=== PATIENT | male | born 1975 | race African-American/Black ===

== ENCOUNTER 2017-08-29 11:03 | Inpatient (IN) | payer OTHER ==
[2017-08-29 12:10] VITALS: BMI 31.4
--- NOTE | 2017-08-29 13:47 | HP ---
CIWA Score - CIWA Score Nausea/Vomitin Muscle Tremors: 3 Anxiety: 3 Agitation: 3 Paroxysmal Sweats: 3 Orientation: 0-Oriented Tacttile Disturbances: 0-None Auditory Disturbances: 0-None Visual Disturbances: 0-None Headache: 0-None Present CIWA-Ar Total Score: 14 Admission ROS BHS - HPI Chief Complaint: "I guess I still need help". Requesting alcohol detox Allergies/Adverse Reactions: Allergies Allergy/AdvReac Type Severity Reaction Status Date / Time No Known Allergies Allergy Verified 08/29/17 12:33 History of Present Illness: Pt is a 42 year old male with a long history of alcohol intoxication here for detox. Pt is previously known to [facility]. With a 5 years hx of sobriety, completed 6 months rehab on 08/16 and relapsed 4 days ago because he got money and hung out with the "wrong crowd". Hx of DM2, HTN, High cholesterol, COPD, Hep C. Pt denies current suicidal ideation. Exam Limitations: No Limitations - Ebola screening Have you traveled outside of the country in the last 21 days: No (N) Have you had contact with anyone from an Ebola affected area: No Have you been sick,other than usual withdrawal symptoms: No Do you have a fever: No - Review of Systems Constitutional: No Symptoms Reported EENT: reports: Blurred Vision (astigmatism), Nose Congestion Respiratory: reports: SOB with Exertion (No resp distress) Cardiac: reports: No Symptoms Reported GI: reports: Constipated (last BM yesterday) : reports: No Symptoms Reported Musculoskeletal: reports: No Symptoms Reported Integumentary: reports: Sweating Endocrine: reports: No Symptoms Reported Hematology: reports: No Symptoms Reported Psychiatric: reports: No Sypmtoms Reported, Judgement Intact, Mood/Affect Appropiate, Orientated x3 Other Systems: Reviewed and Negative Patient History - Patient Medical History Hx Anemia: No Hx Asthma: No Hx Chronic Obstructive Pulmonary Disease (COPD): Yes (Advair, Albuterol) Hx Cancer: No Hx Cardiac Disorders: No Hx Congestive Heart Failure: No Hx Hypertension: Yes (Amlodipine 10mg, Norvasc 10mg) Hx Hypercholesterolemia: Yes (LIPITOR 40 MG HS) Hx Pacemaker: No HX Cerebrovascular Accident: No Hx Seizures: No Hx Dementia: No Hx Diabetes: Yes (Metformin, ) Hx Gastrointestinal Disorders: No Hx Liver Disease: No Hx Genitourinary Disorders: No Hx Sexually Transmitted Disorders: No Hx Renal Disease (ESRD): No Hx Thyroid Disease: No Hx Human Immunodeficiency Virus (HIV): No (NEGATIVE) Hx Hepatitis C: Yes (NO [place] YET) Hx Depression: Yes (Depakote, Remeron, Trazodone) Hx Suicide Attempt: Yes ( cut self in 2009, 2013. Denies current suicidal idea/ attempt) Hx Bipolar Disorder: Yes Hx Schizophrenia: No - Patient Surgical History Past Surgical History: Yes Hx Neurologic Surgery: No Hx Cataract Extraction: No Hx Cardiac Surgery: No Hx Lung Surgery: No Hx Breast Surgery: No Hx Breast Biopsy: No Hx Abdominal Surgery: No Hx Appendectomy: No Hx Cholecystectomy: No Hx Genitourinary Surgery: No Hx Section: No Hx Orthopedic Surgery: Yes (FIFTH TOE SX IN 11/2015) Anesthesia Reaction: No - PPD History Previous Implant?: Yes Documented Results: Negative w/proof Date: 03/19/16 Results: TO BE DONE PPD to be Administered?: Yes - Reproductive History Patient is a Female of Child Bearing Age (11 -55 yrs old): No - Smoking Cessation Smoking history: Current every day smoker Have you smoked in the past 12 months: Yes Aproximately how many cigarettes per day: 10 Cigars Per Day: 0 Hx Chewing Tobacco Use: No Initiated information on smoking cessation: Yes 'Breaking Loose' booklet given: 08/29/17 - Substances Abused Alcohol Route: Oral Frequency: Daily Amount used: liquor- 5 pints, beer 8 (40oz) Age of first use: 10 Date of Last Use: 08/28/17 Cocaine Route: Smoking Frequency: Daily Amount used: 4 bags Age of first use: 15 Date of Last Use: 08/28/17 Family Disease History - Family Disease History Family Disease History: Other: Father (), Mother (), Daughter ( none) Admission Physical Exam BHS - Vital Signs Vital Signs: Vital Signs - 24 hr 08/29/17 12:07 Temperature 96.6 F L Pulse Rate 87 Respiratory 20 Rate Blood Pressure 151/89 - Physical General Appearance: Yes: Mild Distress, Anxious HEENTM: Yes: Within Normal Limits Respiratory: Yes: No Respiratory Distress, No Accessory Muscle Use Neck: Yes: No masses,lesions,Nodules Breast: Yes: Breast Exam Deferred Cardiology: Yes: Regular Rate, S1, S2 Abdominal: Yes: Normal Bowel Sounds, Distended Genitourinary: Yes: Within Normal Limits Back: Yes: Within Normal Limits Musculoskeletal: Yes: full range of Motion, Gait Steady Extremities: Yes: Within Normal Limits, Normal Capillary Refill Neurological: Yes: Fully Oriented, Alert, Motor Strength 5/5, Normal Mood/Affect Integumentary: Yes: Normal Color, Warm Lymphatic: Yes: Within Normal Limits - Diagnostic (1) Alcohol dependence with uncomplicated withdrawal Current Visit: No Status: Acute (2) Nicotine dependence Current Visit: No Status: Chronic Qualifiers: Nicotine product type: cigarettes Substance use status: uncomplicated Qualified Code(s): F17.210 - Nicotine dependence, cigarettes, uncomplicated (3) Cocaine dependence, uncomplicated Current Visit: No Status: Chronic (4) Diabetes mellitus Current Visit: No Status: Chronic Qualifiers: Diabetes mellitus type: type 2 Diabetes mellitus intermediate frame tender insulin use: without fpc use Diabetes mellitus complication status: without complication Qualified Code(s): E11.9 - Type 2 diabetes mellitus without complications (5) Hepatitis C Current Visit: No Status: Chronic Qualifiers: Viral hepatitis chronicity: chronic Hepatic coma status: without hepatic coma Qualified Code(s): B18.2 - Chronic viral hepatitis C (6) Hypercholesterolemia Current Visit: No Status: Chronic (7) Hypertension Current Visit: No Status: Chronic Qualifiers: Hypertension type: essential hypertension Qualified Code(s): I10 - Essential (primary) hypertension (8) Depression Current Visit: Yes Status: Acute (9) Bipolar disorder Current Visit: No Status: Suspected Qualifiers: Active/Remission status: in full remission Most recent bipolar episode type : mixed Qualified Code(s): F31.78 - Bipolar disorder, in full remission, most recent episode mixed (10) Asthma Current Visit: No Status: Chronic Qualifiers: Asthma severity: mild persistent Asthma complication type: with status asthmaticus Qualified Code(s): J45.32 - Mild persistent asthma with status asthmaticus BHS Breath Alcohol Content Breath Alcohol Content: 0 Urine Drug Screen - Results Drug Screen Negative: No Urine Drug Screen Results: ALLIE-Cocaine, BAR-Barbiturates
[2017-08-29] MEDS ORDERED: P-EPHED 60MG/TRIPROLIDI 2.5MG TABLET PO PRN (14:17)
[2017-08-29] MEDS ORDERED: NICOTINE POLACRILEX 2 MG GUM BUC PRN (14:17)
[2017-08-29] MEDS ORDERED: guaiFENesin/D-METHORPHAN HB 10 ML UNIT-DOSE CUPS PO PRN (14:17)
[2017-08-29] MEDS ORDERED: ACETAMINOPHEN 325 MG TABLET (FP) PO PRN (14:17)
[2017-08-29] MEDS ORDERED: LOPERAMIDE HCL 2 MG CAPSULE PO PRN (14:17)
[2017-08-29] MEDS ORDERED: MAG HYDROX/AL HYDROX/SIMETH 30 ML UNIT-DOSE CUP PO PRN (14:17)
[2017-08-29] MEDS ORDERED: chlordiazePOXIDE HCL 25 MG CAPSULE PO PRN (14:17)
[2017-08-29] MEDS ORDERED: MAGNESIUM CITRATE 300 ML BOTTLE PO PRN (14:17)
[2017-08-29] MEDS ORDERED: IBUPROFEN 400 MG TABLET (FP) PO PRN (14:17)
[2017-08-29] MEDS ORDERED: MAGNESIUM HYDROX 2400MG/30ML ORAL SUSPENSION 30 ML CUP PO PRN (14:17)
[2017-08-29] MEDS ORDERED: MENTHOL/PHENOL 1 EACH UD MM PRN (14:17)
[2017-08-29] MEDS ORDERED: chlordiazePOXIDE HCL 25 MG CAPSULE ONE (15:28)
[2017-08-29] MEDS ORDERED: ALBUTEROL SO4 18 GM HFA INHALER IH PRN (16:45)
[2017-08-29 17:31] LABS: URINE APPEARANCE TURBID; URINE BILIRUBIN NEGATIVE (NEGATIVE); URINE BLOOD NEGATIVE (NEGATIVE); URINE COLOR AMBER; URINE GLUCOSE (UA) 1+ (NEGATIVE); URINE KETONE NEGATIVE (NEGATIVE); URINE LEUK ESTERASE NEGATIVE (NEGATIVE); URINE NITRITE NEGATIVE (NEGATIVE); URINE PROTEIN NEGATIVE (NEGATIVE); URINE UROBILINOGEN 4.0 E.U/dl mg/dL (0.2-1.0)
[2017-08-29] MEDS: chlordiazePOXIDE HCL 25 MG CAPSULE PO SCH ×2 (17:40→22:15)
[2017-08-29] MEDS: ASPIRIN 81 MG CHEWABLE TABLETS PO SCH (17:41)
[2017-08-29] MEDS: LOSARTAN POTASSIUM 50 MG TABLET (FP) PO SCH (17:41)
[2017-08-29] MEDS: ATORVASTATIN CA 10 MG TABLET (FP) PO SCH (22:15)
[2017-08-29] MEDS: THIAMINE HCL 100 MG TABLET (FP) PO SCH (22:15)
[2017-08-29] MEDS: ATORVASTATIN CA 20 MG TABLET (FP) PO SCH (22:15)
[2017-08-29] MEDS: BUDESONIDE/FORMETEROL FUMARATE 80/4.5 mcg INHALER IH SCH (22:16)
[2017-08-30] MEDS: chlordiazePOXIDE HCL 25 MG CAPSULE PO SCH ×4 (06:18→22:20)
[2017-08-30 10:14] LABS: HEMATOCRIT 41.9 % (35.4-49); HEMOGLOBIN 14.5 GM/dL (11.7-16.9); MCH 27.2 pg (25.7-33.7); MCHC 34.7 g/dl (32.0-35.9); MEAN CELL VOLUME 78.5 fl (80-96); MEAN PLT VOLUME 9.7 fl (7.5-11.1); PLATELET COUNT 167 K/MM3 (134-434); RBC 5.34 M/mm3 (4.00-5.60); RDW 14.4 % (11.9-15.9); WHITE BLOOD COUNT 6.7 K/mm3 (4.0-10.0)
[2017-08-30 10:16] LABS: CHLORIDE 109 mmol/L (98-107); POTASSIUM 4.4 mmol/L (3.5-5.1); SODIUM 140 mmol/L (136-145)
[2017-08-30] MEDS: PRENATAL VITAMINS W/ FOLIC ACID TABLET (FP) PO SCH (10:21)
[2017-08-30] MEDS: LOSARTAN POTASSIUM 50 MG TABLET (FP) PO SCH (10:21)
[2017-08-30] MEDS: ASPIRIN 81 MG CHEWABLE TABLETS PO SCH (10:21)
[2017-08-30] MEDS: NICOTINE 14 MG/24 HOURS TOPICAL PATCH TD SCH (10:22)
[2017-08-30] MEDS: BUDESONIDE/FORMETEROL FUMARATE 80/4.5 mcg INHALER IH SCH ×2 (10:22→22:22)
--- NOTE | 2017-08-30 10:23 | PN ---
S CIWA - CIWA Score Nausea/Vomitin-Mild Nausea/No Vomiting Muscle Tremors: 2 Anxiety: 2 Agitation: 2 Paroxysmal Sweats: 2 Orientation: 0-Oriented Tacttile Disturbances: 3-Moderate Itch/Numb/Burn Auditory Disturbances: 0-None Visual Disturbances: 0-None Headache: 1-Very Mild CIWA-Ar Total Score: 13 BHS Progress Note (SOAP) Subjective: "I have real bad diarrhea." Patient denies tremors, c/o anxiety. Objective: 08/30/17 10:21 Last Vital Signs Temp Pulse Resp BP Pulse Ox 97.3 F L 95 H 20 161/98 08/30/17 09:57 08/30/17 09:57 08/30/17 09:57 08/30/17 09:57 Laboratory Last Values WBC 6.7 K/mm3 (4.0-10.0) 08/30/17 07:00 RBC 5.34 M/mm3 (4.00-5.60) 08/30/17 07:00 Hgb 14.5 GM/dL (11.7-16.9) 08/30/17 07:00 Hct 41.9 % (35.4-49) 08/30/17 07:00 MCV 78.5 fl (80-96) L 08/30/17 07:00 MCH 27.2 pg (25.7-33.7) 08/30/17 07:00 MCHC 34.7 g/dl (32.0-35.9) 08/30/17 07:00 RDW 14.4 % (11.9-15.9) 08/30/17 07:00 Plt Count 167 K/MM3 (134-434) 08/30/17 07:00 MPV 9.7 fl (7.5-11.1) 08/30/17 07:00 POC Glucometer 186 UNITS (80-120) 08/30/17 06:16 Urine Color Lou 08/29/17 15:23 Urine Appearance Turbid 08/29/17 15:23 Urine pH 5.0 (5.0-8.0) 08/29/17 15:23 Ur Specific [place] 1.028 (1.001-1.035) 08/29/17 15:23 Urine Protein Negative (NEGATIVE) 08/29/17 15:23 Urine Glucose (UA) 1+ (NEGATIVE) H 08/29/17 15:23 Urine Ketones Negative (NEGATIVE) 08/29/17 15:23 Urine Blood Negative (NEGATIVE) 08/29/17 15:23 Urine Nitrite Negative (NEGATIVE) 08/29/17 15:23 Urine Bilirubin Negative (NEGATIVE) 08/29/17 15:23 Urine Urobilinogen 4.0 e.u/dl mg/dL (0.2-1.0) 08/29/17 15:23 Ur Leukocyte Esterase Negative (NEGATIVE) 08/29/17 15:23 Labs pending A and O x 3 Mild tremor, anxious Lungs CTA bilaterally Heart S1, S2, rrr Assessment: withdrawal syndrome 08/30/17 10:22 Plan: Continue detox
[2017-08-30 10:25] LABS: ALBUMIN 3.4 g/dl (3.4-5.0); ALK PHOS 89 U/L (45-117); ANION GAP 8 (8-16); BILIRUBIN,TOTAL 0.5 mg/dL (0.2-1.0); BLOOD UREA NITROGEN 18 mg/dL (7-18); CALCIUM 7.9 mg/dL (8.5-10.1); CO2 23 mmol/L (21-32); CREATININE 0.8 mg/dL (0.7-1.3); GLUCOSE,RANDOM 170 mg/dL (74-106); SGOT/AST 7 U/L (15-37); SGPT/ALT 16 U/L (12-78); TOT PROT 6.5 g/dl (6.4-8.2)
--- NOTE | 2017-08-30 13:19 | CONSULT ---
[facility] Psychiatric Consult - Data Date of interview: 08/30/17 Admission source: [facility] Identifying data: Readmission to [facility] for this 42 y/o AA male seeking detox treatment,on ,for cocaine (crack) and alcohol dependence.Patient is single,a father offour,homeless,unemployed and supported on Public Assistance. Substance Abuse History: Discussed in this interview.Mr Adams does admit to daily use of crack + consuming 3-5 pints of liquor and beer on a daily basis.Aknowledges 25-30 years of substance dependence. See details in current [facility] report (endorsesd by patient as accurate) : Smoking history: Current every day smoker. Have you smoked in the past 12 months: Yes. Aproximately how many cigarettes per day: 10. Cigars Per Day: 0. Hx Chewing Tobacco Use: No. Initiated information on smoking cessation: Yes. 'Breaking Loose' booklet given : 08/29/17. - Substances Abused. Alcohol. Route: Oral. Frequency: Daily. Amount used: liquor- 5 pints, beer 8 (40oz). Age of first use: 10. Date of Last Use: 08/28/17. Cocaine. Route: Smoking. Frequency: Daily. Amount used: 4 bags. Age of first use: 15. Date of Last Use: 08/28/17 Medical History: Multiple medical co-morbidities : hypertension,diabetes mellitus,hypercholesterolemia,hepatitis C,COPD and a remote history of orthosurgery (foot). Psychiatric History: Extensive history of psychiatric illness (onset of psychiatric issues : age [age]).Diagnoised with Bipolar Disorder.Patient admits to a history of multiple psychiatric hospitalizations ([facility] in [place],[facility] in [facility] in [facility] and other unnamed institutions).Mr Adams is currently receiving outpatient psychiatric services at the [facility] in the [place].Maintenance medications are reported by patient to be depakote 500 mg po bid + trazodone 200 mg/hs + remeron 30 mg/hs.Good adherence is self-reported.Patient mentions two previous suicide attempts (via wrist- cutting) in 2009 + 2013. Physical/Sexual Abuse/Trauma History: Patient denies. Additional Comment: Urine Drug Screen Results: ALLIE-Cocaine, BAR- Barbiturates.Noted. Mental Status Exam - Mental Status Exam Alert and Oriented to: Time, Place, Person Cognitive Function: Good Patient Appearance: Well Groomed Mood: Nervous, Withdrawn Affect: Appropriate, Normal Range Patient Behavior: Fatigued, Appropriate, Cooperative Speech Pattern: Clear, Appropriate Voice Loudness: Normal Thought Process: Goal Oriented Thought Disorder: Not Present Hallucinations: Denies Suicidal Ideation: Denies Homicidal Ideation: Denies Insight/Judgement: Poor Sleep: Poorly, Difficulty falling asleep Appetite: Good Muscle strength/Tone: Normal Gait/Station: Normal Psychiatric Findings - Problem List ([place] 1, 2,3) (1) Alcohol dependence with uncomplicated withdrawal Current Visit: Yes Status: Acute (2) Cocaine dependence, uncomplicated Current Visit: Yes Status: Acute (3) Nicotine dependence Current Visit: Yes Status: Acute Qualifiers: Nicotine product type: cigarettes Substance use status: uncomplicated Qualified Code(s): F17.210 - Nicotine dependence, cigarettes, uncomplicated (4) Bipolar disorder Current Visit: Yes Status: Chronic Qualifiers: Active/Remission status: in full remission Most recent bipolar episode type : mixed Qualified Code(s): F31.78 - Bipolar disorder, in full remission, most recent episode mixed Comment: As per records and self-report.Patient is in active psychiatric OPD care.On medications. (5) Insomnia Current Visit: Yes Status: Acute - Initial Treatment Plan Initial Treatment Plan: Records revisited.Sleep hygiene.Psychoeducation and support.Detoxification in progress.Medications reconciled : depakote 500 mg po bid + trazodone 100 mg po hs + remeron 15 mg po hs.Side effects/benefits of each drug are discussed with the patient.Mr Adams is made aware, in particular, of the risk of liver dysfunction,blood dyscrasias,weight gain,hair loss, priapism and oversedation.He endorses this regimen as effective and well tolerated over years of treatment.Patient gave his consent (verbally) to this functional tester typewriters for the implementation of this careplan.Request made for valproic acid level.Will follow.Observation.
--- NOTE | 2017-08-30 16:08 | EKG ---
Test Reason : Blood Pressure : / mmHG Vent. Rate : 088 BPM Atrial Rate : 088 BPM P-R Int : 150 ms QRS Dur : 090 ms QT Int : 356 ms P-R-T Axes : 028 067 045 degrees QTc Int : 430 ms NORMAL SINUS RHYTHM MINIMAL VOLTAGE CRITERIA FOR LVH, MAY BE NORMAL VARIANT BORDERLINE ECG NO PREVIOUS ECGS AVAILABLE Confirmed by OTILIO PABLO MD ([id number]) on 08/30/2017 4:07:34 PM Referred By: Confirmed By:OTILIO PABLO MD
[2017-08-30] MEDS: ATORVASTATIN CA 10 MG TABLET (FP) PO SCH (22:20)
[2017-08-30] MEDS: MIRTAZAPINE 15 MG TABLET (FP) PO SCH (22:20)
[2017-08-30] MEDS: traZODone HCL 100 MG TABLET (FP) PO SCH (22:20)
[2017-08-30] MEDS: THIAMINE HCL 100 MG TABLET (FP) PO SCH (22:20)
[2017-08-30] MEDS: DIVALPROEX SODIUM 500 MG TABLET E.C. PO SCH (22:20)
[2017-08-30] MEDS: ATORVASTATIN CA 20 MG TABLET (FP) PO SCH (22:20)
[2017-08-31] MEDS: chlordiazePOXIDE HCL 25 MG CAPSULE PO SCH ×2 (05:25→10:42)
[2017-08-31] MEDS: BUDESONIDE/FORMETEROL FUMARATE 80/4.5 mcg INHALER IH SCH ×2 (10:40→22:01)
[2017-08-31] MEDS: ASPIRIN 81 MG CHEWABLE TABLETS PO SCH (10:41)
[2017-08-31] MEDS: DIVALPROEX SODIUM 500 MG TABLET E.C. PO SCH ×2 (10:41→22:02)
[2017-08-31] MEDS: NICOTINE 14 MG/24 HOURS TOPICAL PATCH TD SCH (10:42)
[2017-08-31] MEDS: LOSARTAN POTASSIUM 50 MG TABLET (FP) PO SCH (10:42)
[2017-08-31] MEDS: PRENATAL VITAMINS W/ FOLIC ACID TABLET (FP) PO SCH (10:42)
--- NOTE | 2017-08-31 12:37 | PN ---
[facility] CIWA - CIWA Score Nausea/Vomitin-No Nausea/No Vomiting Muscle Tremors: 2 Anxiety: 4-Mod. Anxious/Guarded Agitation: 3 Paroxysmal Sweats: No Perspiration Orientation: 0-Oriented Tacttile Disturbances: 2-Mild Itch/Numbness/Burn Auditory Disturbances: 3-Moderate Harsh/Frighten Visual Disturbances: 0-None Headache: 0-None Present CIWA-Ar Total Score: 14 S Progress Note (SOAP) Subjective: Diarrhea, Anxious, Interrupted Sleep. Objective: PATIENT A & O X 3, OBSERVED AMBULATING ON UNIT. NO ACUTE DISTRESS. 08/31/17 12:36 Vital Signs Temperature 97.4 F L 08/31/17 09:47 Pulse Rate 90 08/31/17 09:47 Respiratory Rate 20 08/31/17 09:47 Blood Pressure 136/78 08/31/17 09:47 O2 Sat by Pulse Oximetry (%) Laboratory Tests 08/29/17 08/29/17 08/30/17 12:47 15:23 06:16 WBC RBC Hgb Hct MCV MCH MCHC RDW Plt Count MPV Sodium Potassium Chloride Carbon Dioxide Anion Gap BUN Creatinine Creat Clearance w eGFR POC Glucometer 179 186 Random Glucose Calcium Total Bilirubin AST ALT Alkaline Phosphatase Total Protein Albumin Urine Color Lou Urine Appearance Turbid Urine pH 5.0 Ur Specific [place] 1.028 Urine Protein Negative Urine Glucose (UA) 1+ H Urine Ketones Negative Urine Blood Negative Urine Nitrite Negative Urine Bilirubin Negative Urine Urobilinogen 4.0 e.u/dl Ur Leukocyte Esterase Negative Valproic Acid RPR Titer 08/30/17 08/30/17 08/30/17 07:00 07:00 07:00 WBC 6.7 RBC 5.34 Hgb 14.5 Hct 41.9 MCV 78.5 L MCH 27.2 MCHC 34.7 RDW 14.4 Plt Count 167 MPV 9.7 Sodium 140 Potassium 4.4 Chloride 109 H Carbon Dioxide 23 Anion Gap 8 BUN 18 D Creatinine 0.8 Creat Clearance w eGFR > 60 POC Glucometer Random Glucose 170 H D Calcium 7.9 L Total Bilirubin 0.5 D AST 7 L D ALT 16 D Alkaline Phosphatase 89 D Total Protein 6.5 Albumin 3.4 Urine Color Urine Appearance Urine pH Ur Specific [place] Urine Protein Urine Glucose (UA) Urine Ketones Urine Blood Urine Nitrite Urine Bilirubin Urine Urobilinogen Ur Leukocyte Esterase Valproic Acid RPR Titer Nonreactive 08/30/17 08/31/17 08/31/17 16:30 05:25 07:00 WBC RBC Hgb Hct MCV MCH MCHC RDW Plt Count MPV Sodium Potassium Chloride Carbon Dioxide Anion Gap BUN Creatinine Creat Clearance w eGFR POC Glucometer 283 199 Random Glucose Calcium Total Bilirubin AST ALT Alkaline Phosphatase Total Protein Albumin Urine Color Urine Appearance Urine pH Ur Specific [place] Urine Protein Urine Glucose (UA) Urine Ketones Urine Blood Urine Nitrite Urine Bilirubin Urine Urobilinogen Ur Leukocyte Esterase Valproic Acid 30.409 L RPR Titer LABS NOTED. Assessment: 08/31/17 12:36 WITHDRAWAL SYMPTOMS. Plan: CONTINUE DETOX. PRN IMMODIUM FOR DIARRHEA. INCREASE DAILY PO FLUID INTAKE.
[2017-08-31] MEDS: chlordiazePOXIDE 5 MG CAPSULE PO SCH ×2 (17:54→22:02)
[2017-08-31] MEDS: INSULIN DETEMIR 100 UNITS/ML MDV SQ SCH (22:00)
[2017-08-31] MEDS: THIAMINE HCL 100 MG TABLET (FP) PO SCH (22:02)
[2017-08-31] MEDS: MIRTAZAPINE 15 MG TABLET (FP) PO SCH (22:02)
[2017-08-31] MEDS: ATORVASTATIN CA 20 MG TABLET (FP) PO SCH (22:02)
[2017-08-31] MEDS: traZODone HCL 100 MG TABLET (FP) PO SCH (22:03)
[2017-09-01] MEDS: chlordiazePOXIDE 5 MG CAPSULE PO SCH ×2 (05:58→10:17)
[2017-09-01] MEDS: metFORMIN HCL 500 MG TABLET (FP) PO SCH ×2 (06:01→17:30)
[2017-09-01] MEDS ORDERED: INSULIN SLIDING SCALE (NOVOLOG) 1 VIAL SQ SCH (07:00)
[2017-09-01] MEDS ORDERED: INSULIN (NOVOLOG) ASPART 100 UNITS/ML 10ML VIAL ONE ×3 (07:46→17:30)
[2017-09-01] MEDS: BUDESONIDE/FORMETEROL FUMARATE 80/4.5 mcg INHALER IH SCH ×2 (10:16→23:00)
[2017-09-01] MEDS: NICOTINE 14 MG/24 HOURS TOPICAL PATCH TD SCH (10:17)
[2017-09-01] MEDS: PRENATAL VITAMINS W/ FOLIC ACID TABLET (FP) PO SCH (10:17)
[2017-09-01] MEDS: ASPIRIN 81 MG CHEWABLE TABLETS PO SCH (10:17)
[2017-09-01] MEDS: LOSARTAN POTASSIUM 50 MG TABLET (FP) PO SCH (10:17)
[2017-09-01] MEDS: DIVALPROEX SODIUM 500 MG TABLET E.C. PO SCH ×2 (10:17→23:01)
--- NOTE | 2017-09-01 10:24 | PN ---
BHS Progress Note (SOAP) Subjective: sweats , shakes , polyuria Objective: 09/01/17 10:22 Vital Signs Temperature 98.2 F 09/01/17 09:53 Pulse Rate 96 H 09/01/17 09:53 Respiratory Rate 20 09/01/17 09:53 Blood Pressure 149/77 09/01/17 09:53 O2 Sat by Pulse Oximetry (%) Laboratory Tests 08/29/17 08/29/17 08/30/17 12:47 15:23 06:16 WBC RBC Hgb Hct MCV MCH MCHC RDW Plt Count MPV Sodium Potassium Chloride Carbon Dioxide Anion Gap BUN Creatinine Creat Clearance w eGFR POC Glucometer 179 186 Random Glucose Calcium Total Bilirubin AST ALT Alkaline Phosphatase Total Protein Albumin Urine Color Lou Urine Appearance Turbid Urine pH 5.0 Ur Specific [place] 1.028 Urine Protein Negative Urine Glucose (UA) 1+ H Urine Ketones Negative Urine Blood Negative Urine Nitrite Negative Urine Bilirubin Negative Urine Urobilinogen 4.0 e.u/dl Ur Leukocyte Esterase Negative Valproic Acid RPR Titer 08/30/17 08/30/17 08/30/17 07:00 07:00 07:00 WBC 6.7 RBC 5.34 Hgb 14.5 Hct 41.9 MCV 78.5 L MCH 27.2 MCHC 34.7 RDW 14.4 Plt Count 167 MPV 9.7 Sodium 140 Potassium 4.4 Chloride 109 H Carbon Dioxide 23 Anion Gap 8 BUN 18 D Creatinine 0.8 Creat Clearance w eGFR > 60 POC Glucometer Random Glucose 170 H D Calcium 7.9 L Total Bilirubin 0.5 D AST 7 L D ALT 16 D Alkaline Phosphatase 89 D Total Protein 6.5 Albumin 3.4 Urine Color Urine Appearance Urine pH Ur Specific [place] Urine Protein Urine Glucose (UA) Urine Ketones Urine Blood Urine Nitrite Urine Bilirubin Urine Urobilinogen Ur Leukocyte Esterase Valproic Acid RPR Titer Nonreactive 08/30/17 08/31/17 08/31/17 16:30 05:25 07:00 WBC RBC Hgb Hct MCV MCH MCHC RDW Plt Count MPV Sodium Potassium Chloride Carbon Dioxide Anion Gap BUN Creatinine Creat Clearance w eGFR POC Glucometer 283 199 Random Glucose Calcium Total Bilirubin AST ALT Alkaline Phosphatase Total Protein Albumin Urine Color Urine Appearance Urine pH Ur Specific [place] Urine Protein Urine Glucose (UA) Urine Ketones Urine Blood Urine Nitrite Urine Bilirubin Urine Urobilinogen Ur Leukocyte Esterase Valproic Acid 30.409 L RPR Titer 08/31/17 09/01/17 21:57 05:59 WBC RBC Hgb Hct MCV MCH MCHC RDW Plt Count MPV Sodium Potassium Chloride Carbon Dioxide Anion Gap BUN Creatinine Creat Clearance w eGFR POC Glucometer 404 330 Random Glucose Calcium Total Bilirubin AST ALT Alkaline Phosphatase Total Protein Albumin Urine Color Urine Appearance Urine pH Ur Specific [place] Urine Protein Urine Glucose (UA) Urine Ketones Urine Blood Urine Nitrite Urine Bilirubin Urine Urobilinogen Ur Leukocyte Esterase Valproic Acid RPR Titer pt aox3 lying in bed in nad Assessment: 09/01/17 10:22 withdrawal sx's dm Plan: cont. detox increase fluids bgm monitoring tid
[2017-09-01] MEDS: INSULIN SLIDING SCALE (NOVOLOG) 1 VIAL SQ SCH ×2 (11:45→18:25)
[2017-09-01] MEDS: chlordiazePOXIDE HCL 10 MG CAPSULE PO SCH ×2 (18:24→23:00)
[2017-09-01] MEDS: INSULIN DETEMIR 100 UNITS/ML MDV SQ SCH (22:10)
[2017-09-01] MEDS: THIAMINE HCL 100 MG TABLET (FP) PO SCH (23:00)
[2017-09-01] MEDS: traZODone HCL 100 MG TABLET (FP) PO SCH (23:00)
[2017-09-01] MEDS: ATORVASTATIN CA 20 MG TABLET (FP) PO SCH (23:00)
[2017-09-01] MEDS: MIRTAZAPINE 15 MG TABLET (FP) PO SCH (23:01)
[2017-09-02] MEDS: chlordiazePOXIDE HCL 10 MG CAPSULE PO SCH ×2 (05:27→11:18)
[2017-09-02] MEDS: metFORMIN HCL 500 MG TABLET (FP) PO SCH ×2 (06:45→17:18)
[2017-09-02] MEDS ORDERED: INSULIN (NOVOLOG) ASPART 100 UNITS/ML 10ML VIAL ONE ×3 (07:38→17:11)
[2017-09-02] MEDS: INSULIN SLIDING SCALE (NOVOLOG) 1 VIAL SQ SCH ×3 (07:40→17:19)
[2017-09-02] MEDS: ASPIRIN 81 MG CHEWABLE TABLETS PO SCH (10:12)
[2017-09-02] MEDS: PRENATAL VITAMINS W/ FOLIC ACID TABLET (FP) PO SCH (10:12)
[2017-09-02] MEDS: BUDESONIDE/FORMETEROL FUMARATE 80/4.5 mcg INHALER IH SCH (10:12)
[2017-09-02] MEDS: NICOTINE 14 MG/24 HOURS TOPICAL PATCH TD SCH (10:12)
[2017-09-02] MEDS: LOSARTAN POTASSIUM 50 MG TABLET (FP) PO SCH (10:12)
[2017-09-02] MEDS: DIVALPROEX SODIUM 500 MG TABLET E.C. PO SCH (10:12)
[2017-09-02 15:12] VITALS: BP 136/84; PULSE 62; TEMP 98
--- NOTE | 2017-09-02 15:23 | PN ---
BHS Progress Note (SOAP) Subjective: Sweating, Tremors, Anxious, Body Aches. Objective: PATIENT A & O X 3, OBSERVED AMBULATING ON UNIT. NO ACUTE DISTRESS. 09/02/17 15:20 Vital Signs Temperature 98.0 F 09/02/17 15:12 Pulse Rate 62 09/02/17 15:12 Respiratory Rate 18 09/02/17 15:12 Blood Pressure 136/84 09/02/17 15:12 O2 Sat by Pulse Oximetry (%) Laboratory Tests 08/29/17 08/29/17 08/30/17 12:47 15:23 06:16 WBC RBC Hgb Hct MCV MCH MCHC RDW Plt Count MPV Sodium Potassium Chloride Carbon Dioxide Anion Gap BUN Creatinine Creat Clearance w eGFR POC Glucometer 179 186 Random Glucose Calcium Total Bilirubin AST ALT Alkaline Phosphatase Total Protein Albumin Urine Color Lou Urine Appearance Turbid Urine pH 5.0 Ur Specific [place] 1.028 Urine Protein Negative Urine Glucose (UA) 1+ H Urine Ketones Negative Urine Blood Negative Urine Nitrite Negative Urine Bilirubin Negative Urine Urobilinogen 4.0 e.u/dl Ur Leukocyte Esterase Negative Valproic Acid RPR Titer 08/30/17 08/30/17 08/30/17 07:00 07:00 07:00 WBC 6.7 RBC 5.34 Hgb 14.5 Hct 41.9 MCV 78.5 L MCH 27.2 MCHC 34.7 RDW 14.4 Plt Count 167 MPV 9.7 Sodium 140 Potassium 4.4 Chloride 109 H Carbon Dioxide 23 Anion Gap 8 BUN 18 D Creatinine 0.8 Creat Clearance w eGFR > 60 POC Glucometer Random Glucose 170 H D Calcium 7.9 L Total Bilirubin 0.5 D AST 7 L D ALT 16 D Alkaline Phosphatase 89 D Total Protein 6.5 Albumin 3.4 Urine Color Urine Appearance Urine pH Ur Specific [place] Urine Protein Urine Glucose (UA) Urine Ketones Urine Blood Urine Nitrite Urine Bilirubin Urine Urobilinogen Ur Leukocyte Esterase Valproic Acid RPR Titer Nonreactive 08/30/17 08/31/17 08/31/17 16:30 05:25 07:00 WBC RBC Hgb Hct MCV MCH MCHC RDW Plt Count MPV Sodium Potassium Chloride Carbon Dioxide Anion Gap BUN Creatinine Creat Clearance w eGFR POC Glucometer 283 199 Random Glucose Calcium Total Bilirubin AST ALT Alkaline Phosphatase Total Protein Albumin Urine Color Urine Appearance Urine pH Ur Specific [place] Urine Protein Urine Glucose (UA) Urine Ketones Urine Blood Urine Nitrite Urine Bilirubin Urine Urobilinogen Ur Leukocyte Esterase Valproic Acid 30.409 L RPR Titer 08/31/17 08/31/17 09/01/17 16:27 21:57 05:59 WBC RBC Hgb Hct MCV MCH MCHC RDW Plt Count MPV Sodium Potassium Chloride Carbon Dioxide Anion Gap BUN Creatinine Creat Clearance w eGFR POC Glucometer 463 404 330 Random Glucose Calcium Total Bilirubin AST ALT Alkaline Phosphatase Total Protein Albumin Urine Color Urine Appearance Urine pH Ur Specific [place] Urine Protein Urine Glucose (UA) Urine Ketones Urine Blood Urine Nitrite Urine Bilirubin Urine Urobilinogen Ur Leukocyte Esterase Valproic Acid RPR Titer 09/01/17 09/01/17 09/01/17 11:22 16:42 21:37 WBC RBC Hgb Hct MCV MCH MCHC RDW Plt Count MPV Sodium Potassium Chloride Carbon Dioxide Anion Gap BUN Creatinine Creat Clearance w eGFR POC Glucometer 329 387 484 Random Glucose Calcium Total Bilirubin AST ALT Alkaline Phosphatase Total Protein Albumin Urine Color Urine Appearance Urine pH Ur Specific [place] Urine Protein Urine Glucose (UA) Urine Ketones Urine Blood Urine Nitrite Urine Bilirubin Urine Urobilinogen Ur Leukocyte Esterase Valproic Acid RPR Titer 09/02/17 09/02/17 05:28 11:14 WBC RBC Hgb Hct MCV MCH MCHC RDW Plt Count MPV Sodium Potassium Chloride Carbon Dioxide Anion Gap BUN Creatinine Creat Clearance w eGFR POC Glucometer 261 348 Random Glucose Calcium Total Bilirubin AST ALT Alkaline Phosphatase Total Protein Albumin Urine Color Urine Appearance Urine pH Ur Specific [place] Urine Protein Urine Glucose (UA) Urine Ketones Urine Blood Urine Nitrite Urine Bilirubin Urine Urobilinogen Ur Leukocyte Esterase Valproic Acid RPR Titer LABS NOTED. Assessment: 09/02/17 15:21 WITHDRAWAL SYMPTOMS. Plan: CONTINUE DETOX. DUE TO PRESENCE OF LINGERING DETOX SYMPTOMS, PATIENT TO REMAIN ON DETOX UNIT UNTIL TOMORROW AM, AT WHICH TIME HE WILL APPLY FOR ADMISSION TO REHAB FACILITY ( [facility], [place], [place]
--- NOTE | 2017-09-02 19:42 | DS ---
[facility] Detox Discharge Summary Admission Date: 08/29/17 Discharge Date: 09/02/17 - History Present History: Alcohol Dependence, Cocaine Dependence Additional Comments: PATIENT GOING TO [facility] ([facility] FOR AFTERCARE. PATIENT WAS DISCHARGED FROM DETOX UNIT IN STABLE MEDICAL CONDITION. Pertinent Past History: HTN, Hypercholesterolemia, Type II DM, Depression, Bipolar Disorder, Hep C, Nicotine Dependence, Asthma, Insomnia. - Physical Exam Results Vital Signs: Vital Signs Temperature 98.0 F 09/02/17 15:12 Pulse Rate 62 09/02/17 15:12 Respiratory Rate 18 09/02/17 15:12 Blood Pressure 136/84 09/02/17 15:12 O2 Sat by Pulse Oximetry (%) Pertinent Admission Physical Exam Findings: WITHDRAWAL SYMPTOMS. Laboratory Tests 08/29/17 08/29/17 08/30/17 12:47 15:23 06:16 WBC RBC Hgb Hct MCV MCH MCHC RDW Plt Count MPV Sodium Potassium Chloride Carbon Dioxide Anion Gap BUN Creatinine Creat Clearance w eGFR POC Glucometer 179 186 Random Glucose Calcium Total Bilirubin AST ALT Alkaline Phosphatase Total Protein Albumin Urine Color Lou Urine Appearance Turbid Urine pH 5.0 Ur Specific [place] 1.028 Urine Protein Negative Urine Glucose (UA) 1+ H Urine Ketones Negative Urine Blood Negative Urine Nitrite Negative Urine Bilirubin Negative Urine Urobilinogen 4.0 e.u/dl Ur Leukocyte Esterase Negative Valproic Acid RPR Titer 08/30/17 08/30/17 08/30/17 07:00 07:00 07:00 WBC 6.7 RBC 5.34 Hgb 14.5 Hct 41.9 MCV 78.5 L MCH 27.2 MCHC 34.7 RDW 14.4 Plt Count 167 MPV 9.7 Sodium 140 Potassium 4.4 Chloride 109 H Carbon Dioxide 23 Anion Gap 8 BUN 18 D Creatinine 0.8 Creat Clearance w eGFR > 60 POC Glucometer Random Glucose 170 H D Calcium 7.9 L Total Bilirubin 0.5 D AST 7 L D ALT 16 D Alkaline Phosphatase 89 D Total Protein 6.5 Albumin 3.4 Urine Color Urine Appearance Urine pH Ur Specific [place] Urine Protein Urine Glucose (UA) Urine Ketones Urine Blood Urine Nitrite Urine Bilirubin Urine Urobilinogen Ur Leukocyte Esterase Valproic Acid RPR Titer Nonreactive 03/12/18 03/13/18 03/13/18 16:30 05:25 07:00 WBC RBC Hgb Hct MCV MCH MCHC RDW Plt Count MPV Sodium Potassium Chloride Carbon Dioxide Anion Gap BUN Creatinine Creat Clearance w eGFR POC Glucometer 283 199 Random Glucose Calcium Total Bilirubin AST ALT Alkaline Phosphatase Total Protein Albumin Urine Color Urine Appearance Urine pH Ur Specific [place] Urine Protein Urine Glucose (UA) Urine Ketones Urine Blood Urine Nitrite Urine Bilirubin Urine Urobilinogen Ur Leukocyte Esterase Valproic Acid 30.409 L RPR Titer 08/31/17 08/31/17 09/01/17 16:27 21:57 05:59 WBC RBC Hgb Hct MCV MCH MCHC RDW Plt Count MPV Sodium Potassium Chloride Carbon Dioxide Anion Gap BUN Creatinine Creat Clearance w eGFR POC Glucometer 463 404 330 Random Glucose Calcium Total Bilirubin AST ALT Alkaline Phosphatase Total Protein Albumin Urine Color Urine Appearance Urine pH Ur Specific [place] Urine Protein Urine Glucose (UA) Urine Ketones Urine Blood Urine Nitrite Urine Bilirubin Urine Urobilinogen Ur Leukocyte Esterase Valproic Acid RPR Titer 09/01/17 09/01/17 09/01/17 11:22 16:42 21:37 WBC RBC Hgb Hct MCV MCH MCHC RDW Plt Count MPV Sodium Potassium Chloride Carbon Dioxide Anion Gap BUN Creatinine Creat Clearance w eGFR POC Glucometer 329 387 484 Random Glucose Calcium Total Bilirubin AST ALT Alkaline Phosphatase Total Protein Albumin Urine Color Urine Appearance Urine pH Ur Specific [place] Urine Protein Urine Glucose (UA) Urine Ketones Urine Blood Urine Nitrite Urine Bilirubin Urine Urobilinogen Ur Leukocyte Esterase Valproic Acid RPR Titer 09/02/17 09/02/17 09/02/17 05:28 11:14 16:17 WBC RBC Hgb Hct MCV MCH MCHC RDW Plt Count MPV Sodium Potassium Chloride Carbon Dioxide Anion Gap BUN Creatinine Creat Clearance w eGFR POC Glucometer 261 348 265 Random Glucose Calcium Total Bilirubin AST ALT Alkaline Phosphatase Total Protein Albumin Urine Color Urine Appearance Urine pH Ur Specific [place] Urine Protein Urine Glucose (UA) Urine Ketones Urine Blood Urine Nitrite Urine Bilirubin Urine Urobilinogen Ur Leukocyte Esterase Valproic Acid RPR Titer LABS NOTED. - Treatment Hospital Course: Detox Protocol Followed, Detoxed Safely, Responded well, Discharged Condition Good, Rehab Referral Accepted Patient has Accepted a Rehab Referral to: [facility] ([facility] . - Medication Discharge Medications: Ambulatory Orders Aspirin [ASA -] 81 mg PO DAILY 03/02/16 Atorvastatin Ca [Lipitor] 20 mg PO HS 03/02/16 Divalproex [Depakote -] 1,000 mg PO HS 03/02/16 metFORMIN HCL [Glucophage -] 1,000 mg PO BID 03/02/16 Albuterol Sulfate Inhaler - [Ventolin Hfa Inhaler -] 2 inh PO Q4H 03/17/16 Divalproex [Depakote -] 500 mg PO AM 03/17/16 Fluticasone/Salmeterol [Advair 250-50 Diskus] 1 each IH BID 03/17/16 traZODone HCL [Desyrel -] 100 mg PO HS 03/17/16 Losartan Potassium [Cozaar -] 25 mg PO DAILY 08/29/17 Mirtazapine [Remeron -] 30 mg PO HS 08/29/17 Simvastatin [Zocor -] 20 mg PO HS 08/29/17 Insulin Glargine,Hum.rec.anlog [Lantus] 40 unit SQ HS 08/31/17 - Diagnosis (1) Alcohol dependence with uncomplicated withdrawal Status: Acute (2) Cocaine dependence, uncomplicated Status: Acute (3) Nicotine dependence Status: Chronic Qualifiers: Nicotine product type: cigarettes Substance use status: uncomplicated Qualified Code(s): F17.210 - Nicotine dependence, cigarettes, uncomplicated (4) Bipolar disorder Status: Chronic Qualifiers: Active/Remission status: in full remission Most recent bipolar episode type : mixed Qualified Code(s): F31.78 - Bipolar disorder, in full remission, most recent episode mixed (5) Asthma Status: Chronic Qualifiers: Asthma severity: unspecified severity Asthma persistence: unspecified Asthma complication type: uncomplicated Qualified Code(s): J45.909 - Unspecified asthma, uncomplicated (6) Hypercholesterolemia Status: Chronic (7) Depression Status: Acute Qualifiers: Depression Type: unspecified Qualified Code(s): F32.9 - Major depressive disorder, single episode, unspecified (8) Diabetes mellitus Status: Chronic Qualifiers: Diabetes mellitus type: type 2 Diabetes mellitus 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 insulin use: without mcc use Diabetes mellitus complication status: without complication Qualified Code(s): E11.9 - Type 2 diabetes mellitus without complications (9) Hepatitis C Status: Chronic Qualifiers: Viral hepatitis chronicity: chronic Hepatic coma status: without hepatic coma Qualified Code(s): B18.2 - Chronic viral hepatitis C (10) Hypertension Status: Chronic Qualifiers: Hypertension type: essential hypertension Qualified Code(s): I10 - Essential (primary) hypertension (11) Insomnia Status: Acute Qualifiers: Insomnia type: unspecified Qualified Code(s): G47.00 - Insomnia, unspecified - AMA Did Patient Leave Against Medical Advice: No
== END 2017-09-02 17:50 | disposition other institution (70) | DRG 774 ==
LOC: YASAS 11:03 → Y3N 12:14
PROVIDERS: ADMIT Internal Medicine; ATTEND Internal Medicine
PROC: HZ2ZZZZ Detoxification Services for Substance Abuse Treatment (ICD-10-PCS; principal; 2017-08-29)
DX: F10.230 Alcohol dependence with withdrawal, uncomplicated (principal); F14.20 Cocaine dependence, uncomplicated; F17.210 Nicotine dependence, cigarettes, uncomplicated; F31.78 Bipolar disorder, in full remission, most recent episode mixed; G47.00 Insomnia, unspecified; E11.9 Type 2 diabetes mellitus without complications; Z79.84 Long term (current) use of oral hypoglycemic drugs; E78.00 Pure hypercholesterolemia, unspecified; J45.909 Unspecified asthma, uncomplicated; J44.9 Chronic obstructive pulmonary disease, unspecified; B18.2 Chronic viral hepatitis C
CPT/HCPCS: 36415; 80053; 80164; 81003; 82962; 85027; 86593; 93005; 93010

== ENCOUNTER 2017-09-02 18:00 | Inpatient (IN) | payer OTHER ==
--- NOTE | 2017-09-02 17:41 | HP ---
[facility] Rehab Assess/Revision - Admission History Admitted to Rehab from: [facility] Date of Admission to Rehab: 09/02/2017 - Vital signs Vital Signs: NOTED; STABLE. - Findings Detox History & Physical reviewed: Yes Concur with findings: Yes Comments/Additional Findings: PATIENT'S MEDICAL / MEDICATION HISTORY REVIEWED PRIOR TO DISCHARGE FROM DETOX UNIT. PATIENT WAS DISCHARGED FROM DETOX UNIT TO BE TAKEN TO [facility] UNIT IN [facility] MEDICAL CONDITION. Inpatient Rehab Admission - Initial Determination Are CD services needed?: Yes Free of communicable disease: Yes Not in need of hospitalization: Yes - Rehab Admission Criteria Previous failed treatment: Yes Comorbidities: Yes Patient is meeting Inpatient Rehab admission criteria:: Yes
[~2017-09-02 18:00] MED LIST: ACETAMINOPHEN 325 MG TABLET (FP) PO PRN; ALBUTEROL SO4 18 GM HFA INHALER IH PRN; IBUPROFEN 400 MG TABLET (FP) PO PRN; LOPERAMIDE HCL 2 MG CAPSULE PO PRN; MAG HYDROX/AL HYDROX/SIMETH 30 ML UNIT-DOSE CUP PO PRN; MAGNESIUM CITRATE 300 ML BOTTLE PO PRN; MAGNESIUM HYDROX 2400MG/30ML ORAL SUSPENSION 30 ML CUP PO PRN; MENTHOL/PHENOL 1 EACH UD MM PRN; NICOTINE POLACRILEX 2 MG GUM BUC PRN; P-EPHED 60MG/TRIPROLIDI 2.5MG TABLET PO PRN; guaiFENesin/D-METHORPHAN HB 10 ML UNIT-DOSE CUPS PO PRN
[2017-09-02] MEDS: ATORVASTATIN CA 20 MG TABLET (FP) PO SCH (22:01)
[2017-09-02] MEDS: BUDESONIDE/FORMETEROL FUMARATE 80/4.5 mcg INHALER IH SCH (22:01)
[2017-09-02] MEDS: THIAMINE HCL 100 MG TABLET (FP) PO SCH (22:01)
[2017-09-02] MEDS: INSULIN DETEMIR 100 UNITS/ML MDV SQ SCH (22:02)
[2017-09-03] MEDS: metFORMIN HCL 500 MG TABLET (FP) PO SCH ×2 (06:17→17:03)
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
[2017-09-03] MEDS: PRENATAL VITAMINS W/ FOLIC ACID TABLET (FP) PO SCH (09:57)
[2017-09-03] MEDS: BUDESONIDE/FORMETEROL FUMARATE 80/4.5 mcg INHALER IH SCH ×2 (09:57→21:23)
[2017-09-03] MEDS: ASPIRIN 81 MG CHEWABLE TABLETS PO SCH (09:57)
[2017-09-03] MEDS: NICOTINE 14 MG/24 HOURS TOPICAL PATCH TD SCH (09:59)
[2017-09-03] MEDS: LOSARTAN POTASSIUM 25 MG TABLET PO SCH (09:59)
[2017-09-03] MEDS: DIVALPROEX SODIUM 500 MG TABLET E.C. PO SCH ×2 (11:58→21:21)
[2017-09-03] MEDS: MIRTAZAPINE 30 MG TABLET (FP) PO SCH (21:21)
[2017-09-03] MEDS: traZODone HCL 100 MG TABLET (FP) PO SCH (21:21)
[2017-09-03] MEDS: THIAMINE HCL 100 MG TABLET (FP) PO SCH (21:21)
[2017-09-03] MEDS: INSULIN DETEMIR 100 UNITS/ML MDV SQ SCH (21:22)
[2017-09-03] MEDS: ATORVASTATIN CA 20 MG TABLET (FP) PO SCH (21:22)
[2017-09-04] MEDS: metFORMIN HCL 500 MG TABLET (FP) PO SCH ×2 (06:36→16:46)
[2017-09-04] MEDS: ASPIRIN 81 MG CHEWABLE TABLETS PO SCH (09:59)
[2017-09-04] MEDS: LOSARTAN POTASSIUM 25 MG TABLET PO SCH (09:59)
[2017-09-04] MEDS: BUDESONIDE/FORMETEROL FUMARATE 80/4.5 mcg INHALER IH SCH ×2 (09:59→21:24)
[2017-09-04] MEDS: DIVALPROEX SODIUM 500 MG TABLET E.C. PO SCH ×2 (09:59→21:23)
[2017-09-04] MEDS: PRENATAL VITAMINS W/ FOLIC ACID TABLET (FP) PO SCH (09:59)
[2017-09-04] MEDS: NICOTINE 14 MG/24 HOURS TOPICAL PATCH TD SCH (10:00)
[2017-09-04] MEDS: ATORVASTATIN CA 20 MG TABLET (FP) PO SCH (21:23)
[2017-09-04] MEDS: traZODone HCL 100 MG TABLET (FP) PO SCH (21:23)
[2017-09-04] MEDS: THIAMINE HCL 100 MG TABLET (FP) PO SCH (21:24)
[2017-09-04] MEDS: INSULIN DETEMIR 100 UNITS/ML MDV SQ SCH (21:24)
[2017-09-04] MEDS: MIRTAZAPINE 30 MG TABLET (FP) PO SCH (21:24)
[2017-09-05] MEDS: metFORMIN HCL 500 MG TABLET (FP) PO SCH ×2 (06:35→16:53)
[2017-09-05] MEDS: ASPIRIN 81 MG CHEWABLE TABLETS PO SCH (10:06)
[2017-09-05] MEDS: NICOTINE 14 MG/24 HOURS TOPICAL PATCH TD SCH (10:06)
[2017-09-05] MEDS: DIVALPROEX SODIUM 500 MG TABLET E.C. PO SCH ×2 (10:06→21:26)
[2017-09-05] MEDS: PRENATAL VITAMINS W/ FOLIC ACID TABLET (FP) PO SCH (10:07)
[2017-09-05] MEDS: LOSARTAN POTASSIUM 25 MG TABLET PO SCH (10:09)
[2017-09-05] MEDS: BUDESONIDE/FORMETEROL FUMARATE 80/4.5 mcg INHALER IH SCH ×2 (10:09→21:27)
--- NOTE | 2017-09-05 18:16 | PN ---
S Progress Note Note: BGM 449,[facility] [address]ACE PATIENT ON INSULIN COVERAGE,BGM ACHS,HB A1C IN AM,DIETTICIAN CONSULTATION
[2017-09-05] MEDS: INSULIN DETEMIR 100 UNITS/ML MDV SQ SCH (21:23)
[2017-09-05] MEDS: INSULIN SLIDING SCALE (NOVOLOG) 1 VIAL SQ SCH (21:25)
[2017-09-05] MEDS ORDERED: INSULIN (NOVOLOG) ASPART 100 UNITS/ML 10ML VIAL ONE (21:25)
[2017-09-05] MEDS: ATORVASTATIN CA 20 MG TABLET (FP) PO SCH (21:26)
[2017-09-05] MEDS: THIAMINE HCL 100 MG TABLET (FP) PO SCH (21:26)
[2017-09-05] MEDS: MIRTAZAPINE 30 MG TABLET (FP) PO SCH (21:26)
[2017-09-05] MEDS: traZODone HCL 100 MG TABLET (FP) PO SCH (21:27)
[2017-09-06] MEDS ORDERED: INSULIN (NOVOLOG) ASPART 100 UNITS/ML 10ML VIAL ONE ×4 (03:04→17:00)
[2017-09-06] MEDS: metFORMIN HCL 500 MG TABLET (FP) PO SCH ×2 (06:30→17:00)
[2017-09-06] MEDS: INSULIN SLIDING SCALE (NOVOLOG) 1 VIAL SQ SCH ×4 (07:35→22:22)
[2017-09-06] MEDS: DIVALPROEX SODIUM 500 MG TABLET E.C. PO SCH ×2 (10:05→21:34)
[2017-09-06] MEDS: LOSARTAN POTASSIUM 25 MG TABLET PO SCH (10:05)
[2017-09-06] MEDS: PRENATAL VITAMINS W/ FOLIC ACID TABLET (FP) PO SCH (10:05)
[2017-09-06] MEDS: NICOTINE 14 MG/24 HOURS TOPICAL PATCH TD SCH (10:05)
[2017-09-06] MEDS: BUDESONIDE/FORMETEROL FUMARATE 80/4.5 mcg INHALER IH SCH ×2 (10:05→21:35)
[2017-09-06] MEDS: ASPIRIN 81 MG CHEWABLE TABLETS PO SCH (10:05)
--- NOTE | 2017-09-06 14:50 | PN ---
[facility] Progress Note Note: Patient presents to discuss results of AIC. Has history of DM and reports having AIC 11.5 last month during his last visit with PCP. Vital Signs Temperature 98.8 F 09/06/17 07:01 Pulse Rate 94 H 09/06/17 07:01 Respiratory Rate 18 09/06/17 07:01 Blood Pressure 138/87 09/06/17 07:01 O2 Sat by Pulse Oximetry (%) Laboratory Tests 09/03/17 09/03/17 09/04/17 06:17 20:49 06:35 POC Glucometer 203 331 209 Hemoglobin A1c % Valproic Acid 09/04/17 09/04/17 09/05/17 16:46 21:22 06:35 POC Glucometer 334 401 200 Hemoglobin A1c % Valproic Acid 09/05/17 09/05/17 09/05/17 08:00 16:52 21:22 POC Glucometer 447 392 Hemoglobin A1c % Valproic Acid 63.662 09/06/17 09/06/17 09/06/17 06:29 07:30 11:57 POC Glucometer 209 224 Hemoglobin A1c % 8.2 H Valproic Acid All labs reviewed with patient and pt verbalized understanding. Obj: patient A and O x 3. In NAD. Ambulating within unit. Skin intact A/P: Increase oral fluids, continue medications as ordered, diet NCS reviewed and pt verbalized understanding. Continue to monitor.
[2017-09-06] MEDS: traZODone HCL 100 MG TABLET (FP) PO SCH (21:34)
[2017-09-06] MEDS: THIAMINE HCL 100 MG TABLET (FP) PO SCH (21:34)
[2017-09-06] MEDS: ATORVASTATIN CA 20 MG TABLET (FP) PO SCH (21:34)
[2017-09-06] MEDS: MIRTAZAPINE 30 MG TABLET (FP) PO SCH (21:34)
[2017-09-06] MEDS: INSULIN DETEMIR 100 UNITS/ML MDV SQ SCH (22:20)
[2017-09-07] MEDS: INSULIN SLIDING SCALE (NOVOLOG) 1 VIAL SQ SCH ×4 (06:13→21:19)
[2017-09-07] MEDS: metFORMIN HCL 500 MG TABLET (FP) PO SCH ×2 (06:13→16:58)
[2017-09-07] MEDS ORDERED: INSULIN (NOVOLOG) ASPART 100 UNITS/ML 10ML VIAL ONE ×4 (06:42→21:19)
[2017-09-07] MEDS: ASPIRIN 81 MG CHEWABLE TABLETS PO SCH (10:07)
[2017-09-07] MEDS: NICOTINE 14 MG/24 HOURS TOPICAL PATCH TD SCH (10:07)
[2017-09-07] MEDS: PRENATAL VITAMINS W/ FOLIC ACID TABLET (FP) PO SCH (10:07)
[2017-09-07] MEDS: LOSARTAN POTASSIUM 25 MG TABLET PO SCH (10:07)
[2017-09-07] MEDS: DIVALPROEX SODIUM 500 MG TABLET E.C. PO SCH ×2 (10:07→21:17)
[2017-09-07] MEDS: BUDESONIDE/FORMETEROL FUMARATE 80/4.5 mcg INHALER IH SCH ×2 (10:07→21:21)
[2017-09-07] MEDS: INSULIN DETEMIR 100 UNITS/ML MDV SQ SCH (21:17)
[2017-09-07] MEDS: ATORVASTATIN CA 20 MG TABLET (FP) PO SCH (21:17)
[2017-09-07] MEDS: THIAMINE HCL 100 MG TABLET (FP) PO SCH (21:17)
[2017-09-07] MEDS: MIRTAZAPINE 30 MG TABLET (FP) PO SCH (21:17)
[2017-09-07] MEDS: traZODone HCL 100 MG TABLET (FP) PO SCH (21:17)
[2017-09-08] MEDS: INSULIN SLIDING SCALE (NOVOLOG) 1 VIAL SQ SCH ×4 (06:19→21:20)
[2017-09-08] MEDS: metFORMIN HCL 500 MG TABLET (FP) PO SCH ×2 (06:19→17:05)
[2017-09-08] MEDS ORDERED: INSULIN (NOVOLOG) ASPART 100 UNITS/ML 10ML VIAL ONE ×3 (06:45→22:02)
[2017-09-08] MEDS: PRENATAL VITAMINS W/ FOLIC ACID TABLET (FP) PO SCH (10:02)
[2017-09-08] MEDS: LOSARTAN POTASSIUM 25 MG TABLET PO SCH (10:02)
[2017-09-08] MEDS: ASPIRIN 81 MG CHEWABLE TABLETS PO SCH (10:02)
[2017-09-08] MEDS: BUDESONIDE/FORMETEROL FUMARATE 80/4.5 mcg INHALER IH SCH ×2 (10:02→21:21)
[2017-09-08] MEDS: DIVALPROEX SODIUM 500 MG TABLET E.C. PO SCH ×2 (10:02→21:19)
[2017-09-08] MEDS: NICOTINE 14 MG/24 HOURS TOPICAL PATCH TD SCH (10:03)
[2017-09-08] MEDS: ATORVASTATIN CA 20 MG TABLET (FP) PO SCH (21:19)
[2017-09-08] MEDS: MIRTAZAPINE 30 MG TABLET (FP) PO SCH (21:19)
[2017-09-08] MEDS: traZODone HCL 100 MG TABLET (FP) PO SCH (21:19)
[2017-09-08] MEDS: THIAMINE HCL 100 MG TABLET (FP) PO SCH (21:19)
[2017-09-08] MEDS: INSULIN DETEMIR 100 UNITS/ML MDV SQ SCH (21:20)
[2017-09-09] MEDS: metFORMIN HCL 500 MG TABLET (FP) PO SCH ×2 (06:32→16:58)
[2017-09-09] MEDS: INSULIN SLIDING SCALE (NOVOLOG) 1 VIAL SQ SCH ×4 (06:32→21:12)
[2017-09-09] MEDS ORDERED: INSULIN (NOVOLOG) ASPART 100 UNITS/ML 10ML VIAL ONE ×4 (06:59→21:12)
[2017-09-09] MEDS: NICOTINE 14 MG/24 HOURS TOPICAL PATCH TD SCH (10:29)
[2017-09-09] MEDS: LOSARTAN POTASSIUM 25 MG TABLET PO SCH (10:30)
[2017-09-09] MEDS: PRENATAL VITAMINS W/ FOLIC ACID TABLET (FP) PO SCH (10:30)
[2017-09-09] MEDS: ASPIRIN 81 MG CHEWABLE TABLETS PO SCH (10:30)
[2017-09-09] MEDS: DIVALPROEX SODIUM 500 MG TABLET E.C. PO SCH ×2 (10:30→21:13)
[2017-09-09] MEDS: BUDESONIDE/FORMETEROL FUMARATE 80/4.5 mcg INHALER IH SCH ×2 (10:31→21:13)
[2017-09-09] MEDS: INSULIN DETEMIR 100 UNITS/ML MDV SQ SCH (21:12)
[2017-09-09] MEDS: MIRTAZAPINE 30 MG TABLET (FP) PO SCH (21:13)
[2017-09-09] MEDS: traZODone HCL 100 MG TABLET (FP) PO SCH (21:13)
[2017-09-09] MEDS: THIAMINE HCL 100 MG TABLET (FP) PO SCH (21:13)
[2017-09-09] MEDS: ATORVASTATIN CA 20 MG TABLET (FP) PO SCH (21:13)
--- NOTE | 2017-09-09 22:04 | PN ---
S Progress Note Note: Last BGM 421, asymtomatic Vital Signs Temperature 98.0 F 09/09/17 06:48 Pulse Rate 111 H 09/09/17 10:00 Respiratory Rate 18 09/09/17 06:48 Blood Pressure 141/80 09/09/17 10:00 O2 Sat by Pulse Oximetry (%) Patient was given 20 units of Novolog and 40 units Increase fluids Continue to monitor
[2017-09-10] MEDS: metFORMIN HCL 500 MG TABLET (FP) PO SCH ×2 (06:15→16:38)
[2017-09-10] MEDS: INSULIN SLIDING SCALE (NOVOLOG) 1 VIAL SQ SCH ×4 (06:15→21:18)
[2017-09-10] MEDS ORDERED: INSULIN (NOVOLOG) ASPART 100 UNITS/ML 10ML VIAL ONE ×3 (06:47→21:47)
[2017-09-10] MEDS: DIVALPROEX SODIUM 500 MG TABLET E.C. PO SCH ×2 (10:00→21:18)
[2017-09-10] MEDS: NICOTINE 14 MG/24 HOURS TOPICAL PATCH TD SCH (10:00)
[2017-09-10] MEDS: PRENATAL VITAMINS W/ FOLIC ACID TABLET (FP) PO SCH (10:00)
[2017-09-10] MEDS: BUDESONIDE/FORMETEROL FUMARATE 80/4.5 mcg INHALER IH SCH ×2 (10:00→21:20)
[2017-09-10] MEDS: ASPIRIN 81 MG CHEWABLE TABLETS PO SCH (10:00)
[2017-09-10] MEDS: LOSARTAN POTASSIUM 25 MG TABLET PO SCH (10:00)
[2017-09-10] MEDS: traZODone HCL 100 MG TABLET (FP) PO SCH (21:18)
[2017-09-10] MEDS: MIRTAZAPINE 30 MG TABLET (FP) PO SCH (21:18)
[2017-09-10] MEDS: THIAMINE HCL 100 MG TABLET (FP) PO SCH (21:18)
[2017-09-10] MEDS: ATORVASTATIN CA 20 MG TABLET (FP) PO SCH (21:18)
[2017-09-10] MEDS: INSULIN DETEMIR 100 UNITS/ML MDV SQ SCH (21:18)
[2017-09-11] MEDS: metFORMIN HCL 500 MG TABLET (FP) PO SCH ×2 (06:41→16:40)
[2017-09-11] MEDS: INSULIN SLIDING SCALE (NOVOLOG) 1 VIAL SQ SCH ×4 (06:41→21:18)
[2017-09-11] MEDS ORDERED: INSULIN (NOVOLOG) ASPART 100 UNITS/ML 10ML VIAL ONE ×3 (06:46→22:09)
[2017-09-11] MEDS: BUDESONIDE/FORMETEROL FUMARATE 80/4.5 mcg INHALER IH SCH ×2 (10:02→21:19)
[2017-09-11] MEDS: LOSARTAN POTASSIUM 25 MG TABLET PO SCH (10:02)
[2017-09-11] MEDS: DIVALPROEX SODIUM 500 MG TABLET E.C. PO SCH ×2 (10:02→21:17)
[2017-09-11] MEDS: PRENATAL VITAMINS W/ FOLIC ACID TABLET (FP) PO SCH (10:02)
[2017-09-11] MEDS: ASPIRIN 81 MG CHEWABLE TABLETS PO SCH (10:02)
[2017-09-11] MEDS: NICOTINE 14 MG/24 HOURS TOPICAL PATCH TD SCH (10:03)
[2017-09-11] MEDS: ATORVASTATIN CA 20 MG TABLET (FP) PO SCH (21:17)
[2017-09-11] MEDS: INSULIN DETEMIR 100 UNITS/ML MDV SQ SCH (21:17)
[2017-09-11] MEDS: THIAMINE HCL 100 MG TABLET (FP) PO SCH (21:17)
[2017-09-11] MEDS: traZODone HCL 100 MG TABLET (FP) PO SCH (21:17)
[2017-09-11] MEDS: MIRTAZAPINE 30 MG TABLET (FP) PO SCH (21:17)
[2017-09-12] MEDS: metFORMIN HCL 500 MG TABLET (FP) PO SCH ×2 (06:37→16:41)
[2017-09-12] MEDS ORDERED: INSULIN (NOVOLOG) ASPART 100 UNITS/ML 10ML VIAL ONE ×4 (07:55→22:07)
[2017-09-12] MEDS: INSULIN SLIDING SCALE (NOVOLOG) 1 VIAL SQ SCH ×4 (07:56→21:45)
[2017-09-12] MEDS: LOSARTAN POTASSIUM 25 MG TABLET PO SCH (09:50)
[2017-09-12] MEDS: ASPIRIN 81 MG CHEWABLE TABLETS PO SCH (09:50)
[2017-09-12] MEDS: PRENATAL VITAMINS W/ FOLIC ACID TABLET (FP) PO SCH (09:50)
[2017-09-12] MEDS: BUDESONIDE/FORMETEROL FUMARATE 80/4.5 mcg INHALER IH SCH ×2 (09:50→21:42)
[2017-09-12] MEDS: NICOTINE 14 MG/24 HOURS TOPICAL PATCH TD SCH (09:50)
[2017-09-12] MEDS: DIVALPROEX SODIUM 500 MG TABLET E.C. PO SCH ×2 (09:50→21:41)
[2017-09-12] MEDS: traZODone HCL 100 MG TABLET (FP) PO SCH (21:41)
[2017-09-12] MEDS: THIAMINE HCL 100 MG TABLET (FP) PO SCH (21:41)
[2017-09-12] MEDS: ATORVASTATIN CA 20 MG TABLET (FP) PO SCH (21:42)
[2017-09-12] MEDS: INSULIN DETEMIR 100 UNITS/ML MDV SQ SCH (21:42)
[2017-09-12] MEDS: MIRTAZAPINE 30 MG TABLET (FP) PO SCH (21:42)
[2017-09-13] MEDS: metFORMIN HCL 500 MG TABLET (FP) PO SCH (06:25)
[2017-09-13] MEDS: INSULIN SLIDING SCALE (NOVOLOG) 1 VIAL SQ SCH ×2 (06:26→11:51)
[2017-09-13 06:37] VITALS: TEMP 97.7
[2017-09-13] MEDS ORDERED: INSULIN (NOVOLOG) ASPART 100 UNITS/ML 10ML VIAL ONE ×2 (07:12→11:51)
[2017-09-13] MEDS: LOSARTAN POTASSIUM 25 MG TABLET PO SCH (10:29)
[2017-09-13] MEDS: PRENATAL VITAMINS W/ FOLIC ACID TABLET (FP) PO SCH (10:29)
[2017-09-13] MEDS: ASPIRIN 81 MG CHEWABLE TABLETS PO SCH (10:29)
[2017-09-13] MEDS: BUDESONIDE/FORMETEROL FUMARATE 80/4.5 mcg INHALER IH SCH (10:30)
[2017-09-13] MEDS: DIVALPROEX SODIUM 500 MG TABLET E.C. PO SCH (10:30)
[2017-09-13] MEDS: NICOTINE 14 MG/24 HOURS TOPICAL PATCH TD SCH (10:30)
[2017-09-13 10:40] VITALS: BP 136/83; PULSE 98
--- NOTE | 2017-09-13 13:45 | PN ---
Psychiatric Progress Note Vital Signs: Vital Signs Period Temp Pulse Resp BP Sys/[place] Pulse Ox Last 24 Hr 97.7 F 88-98 18-18 136-138/79-83 Date of Session: 09/13/17 Chief Complaint:: discharge visit HPI: patient is addressing alcohol, cocaine, nicotine dependence comorbid Bipolar disorder and substance induced sleep disorder. ROS: hypertension, diabetes mellitus, hypercholesterolemia, hepatitis C,COPD medically managed. Current Medications: Active Medications Generic Name Dose Route Start Last Admin Trade Name Freq PRN Reason Stop Dose Admin Acetaminophen 650 mg 09/02/17 17:35 Tylenol - PO Q4H PRN FEVER Al Hydroxide/Mg Hydroxide 30 ml 09/02/17 17:35 Mylanta Oral Suspension - PO Q6H PRN DYSPEPSIA Albuterol Sulfate 2 puff 09/02/17 17:36 Ventolin Hfa Inhaler - IH Q4H PRN SHORT OF BREATH/WHEEZING Aspirin 81 mg 09/03/17 10:00 09/13/17 10:29 Asa - PO 81 mg DAILY WADE Administration Atorvastatin Calcium 20 mg 09/02/17 22:00 09/12/17 21:42 Lipitor - PO 20 mg HS WADE Administration Budesonide/Formoterol Fumarate 1 puff 09/02/17 22:00 09/13/17 10:30 Symbicort 80/4.5mcg - IH Not Given BID WADE Divalproex Sodium 500 mg 09/03/17 11:05 09/13/17 10:30 Depakote - PO 500 mg BID WADE Administration Eucalyptus/Menthol/Phenol/Sorbitol 1 each 09/02/17 17:35 Cepastat Lozenge - MM Q4H PRN SORE THROAT Guaifenesin 10 ml 09/02/17 17:35 Robitussin Dm - PO Q6H PRN COUGH Ibuprofen 400 mg 09/02/17 17:35 Motrin - PO Q6H PRN Pain Level 4-6 Insulin Aspart 1 vial 09/05/17 22:00 09/13/17 11:51 Novolog Vial Sliding Scale - SQ 8 units ACHS WADE Administration Protocol Insulin Detemir 40 units 09/02/17 22:00 09/12/17 21:42 Levemir Vial SQ 40 units HS WADE Administration Loperamide HCl 4 mg 09/02/17 17:35 Imodium - PO Q6H PRN DIARRHEA Losartan Potassium 25 mg 09/03/17 10:00 09/13/17 10:29 Cozaar - PO 25 mg DAILY WADE Administration Magnesium Citrate 300 ml 09/02/17 17:35 Citroma - PO Q48H PRN CONSTIPATION Magnesium Hydroxide 30 ml 09/02/17 17:35 Milk Of Magnesia - PO DAILY PRN CONSTIPATION Metformin HCl 1,000 mg 09/03/17 07:00 09/13/17 06:25 Glucophage - PO 1,000 mg BID@0700,1630 WADE Administration Mirtazapine 30 mg 09/03/17 22:00 09/12/17 21:42 Remeron - PO 30 mg HS WADE Administration Nicotine 14 mg 09/03/17 10:00 09/13/17 10:30 Nicoderm Patch - TD Not Given DAILY WADE Nicotine Polacrilex 2 mg 09/02/17 17:35 Nicorette Gum - BUC Q2H PRN NICOTINE REPLACEMENT RX Multivit/Folic Acid/Iron 1 tab 09/03/17 10:00 09/13/17 10:29 Vitamins (Sjr) - PO 1 tab DAILY WADE Administration Pseudoephedrine/Triprolidine 1 combo 09/02/17 17:35 Actifed - PO TID PRN NASAL CONGESTION Thiamine HCl 100 mg 09/02/17 22:00 09/12/17 21:41 Vitamin B1 - PO 100 mg HS WADE Administration Trazodone HCl 100 mg 09/03/17 22:00 09/12/17 21:41 Desyrel - PO 100 mg HS WADE Administration Current Side Effect: No Lab tests ordered: No Lab tests reviewed: Yes Provider note:: The patient requested to be discharged today, he was admitted on 09/03, chart reviewed and Dr. Weaver's admission note appreciated, he reports he needs to continue his Hep C treatment and has all his medications at [facility], patient gained insights through this treatment and motivated to contiue maintain abstinence, he understands the negative outcome of his addiction and verbalized his resolution to stay sober and follow his aftercare treatment plans , he reports that he does not need a scripts for his current medications( Depakote, Trazodone has own supply ) , his depakote level from 09/05 63.662(WNL) , will f/u by his psychiatrist at [facility], stable for discharge today. Total face to face time:: 25 Mental Status Exam - Mental Status Exam Alert and Oriented to: Time, Place, Person Cognitive Function: Grossly Intact Patient Appearance: Well Groomed Mood: Hopeful Affect: Appropriate, Mood Congruent Patient Behavior: Appropriate, Cooperative Speech Pattern: Clear, Appropriate Voice Loudness: Normal Thought Process: Intact, Goal Oriented Thought Disorder: Not Present Hallucinations: Denies Suicidal Ideation: Denies Homicidal Ideation: Denies Insight/Judgement: Fair Sleep: Well Appetite: Good Muscle strength/Tone: Normal Gait/Station: Normal
== END 2017-09-13 13:20 | disposition home or self-care (01) | DRG 772 ==
LOC: YASAS 18:00 → Y5N 18:01
PROVIDERS: ADMIT Psychiatry & Neurology Psychiatry; ATTEND Psychiatry & Neurology Psychiatry
PROC: HZ42ZZZ Group Counseling for Substance Abuse Treatment, Cognitive-Behavioral (ICD-10-PCS; principal; 2017-09-02)
DX: F10.20 Alcohol dependence, uncomplicated (principal); F14.20 Cocaine dependence, uncomplicated; F17.210 Nicotine dependence, cigarettes, uncomplicated; F31.78 Bipolar disorder, in full remission, most recent episode mixed; F19.282 Other psychoactive substance dependence with psychoactive substance-induced sleep disorder; I10 Essential (primary) hypertension; E11.9 Type 2 diabetes mellitus without complications; E78.00 Pure hypercholesterolemia, unspecified; B18.2 Chronic viral hepatitis C; J45.909 Unspecified asthma, uncomplicated; J43.0 Unilateral pulmonary emphysema [MacLeod's syndrome]
CPT/HCPCS: 36415; 80164; 82962; 83036

== ENCOUNTER 2017-11-23 16:24 | Inpatient (IN) | payer OTHER ==
[2017-11-23 20:32] VITALS: BMI 30.2
--- NOTE | 2017-11-23 21:08 | HP ---
CIWA Score - CIWA Score Nausea/Vomitin-No Nausea/No Vomiting Muscle Tremors: 2 Anxiety: 3 Agitation: 3 Paroxysmal Sweats: 2 Orientation: 0-Oriented Tacttile Disturbances: 0-None Auditory Disturbances: 0-None Visual Disturbances: 2-Mild Sensitivity Headache: 0-None Present CIWA-Ar Total Score: 12 Admission ROS S - HPI Chief Complaint: alcohol withdrawal symptoms Allergies/Adverse Reactions: Allergies Allergy/AdvReac Type Severity Reaction Status Date / Time No Known Allergies Allergy Verified 08/29/17 12:33 History of Present Illness: 42 yo male with hx nicotine, crack/cocaine, THC, and alcohol dependence is here seeking detox. Patient has had multiple admissions to [facility], with last admissions 08/29/17 -09/02/17 for detox, rehab 09/02/17 -09/13/17. Denies any other admissions. Hx of DM2, HTN, High cholesterol, COPD, Hep C. Pt denies current suicidal / homicidal ideation. Longest period of sobriety 5 years. Exam Limitations: No Limitations - Ebola screening Have you traveled outside of the country in the last 21 days: No Have you had contact with anyone from an Ebola affected area: No Have you been sick,other than usual withdrawal symptoms: No Do you have a fever: No - Review of Systems Constitutional: Chills, Changes in sleep ("I've been running the streets in the past 13 days) EENT: reports: No Symptoms Reported Respiratory: reports: No Symptoms reported Cardiac: reports: No Symptoms Reported GI: reports: Diarrhea, Poor Fluid Intake : reports: Other (dark urine) Musculoskeletal: reports: No Symptoms Reported Integumentary: reports: No Symptoms Reported Neuro: reports: No Symptoms reported Endocrine: reports: Increased Thirst Hematology: reports: Anemia Psychiatric: reports: Orientated x3, Depressed Other Systems: Reviewed and Negative Patient History - Patient Medical History Hx Anemia: No Hx Asthma: No Hx Chronic Obstructive Pulmonary Disease (COPD): Yes Hx Cancer: No Hx Cardiac Disorders: Yes Hx Congestive Heart Failure: No Hx Hypertension: Yes Hx Hypercholesterolemia: Yes (LIPITOR 40 MG HS) Hx Pacemaker: No HX Cerebrovascular Accident: No Hx Seizures: No Hx Dementia: No Hx Diabetes: Yes Hx Gastrointestinal Disorders: No Hx Liver Disease: Yes (Hep C ) Hx Genitourinary Disorders: No Hx Sexually Transmitted Disorders: No Hx Renal Disease (ESRD): No Hx Thyroid Disease: No Hx Human Immunodeficiency Virus (HIV): No (NEGATIVE) Hx Hepatitis C: Yes (NO [place] YET) Hx Depression: Yes Hx Suicide Attempt: Yes Hx Bipolar Disorder: Yes Hx Schizophrenia: No - Patient Surgical History Past Surgical History: Yes Hx Neurologic Surgery: No Hx Cataract Extraction: No Hx Cardiac Surgery: No Hx Lung Surgery: No Hx Breast Surgery: No Hx Breast Biopsy: No Hx Abdominal Surgery: No Hx Appendectomy: No Hx Cholecystectomy: No Hx Genitourinary Surgery: No Hx Section: No Hx Orthopedic Surgery: Yes (FIFTH TOE SX IN 11/2015) Anesthesia Reaction: No - PPD History Date: 08/29/17 Results: 0 PPD to be Administered?: No - Smoking Cessation Smoking history: Current every day smoker Have you smoked in the past 12 months: Yes Aproximately how many cigarettes per day: 9 Cigars Per Day: 0 Hx Chewing Tobacco Use: No Initiated information on smoking cessation: Yes 'Breaking Loose' booklet given: 11/23/17 - Substance & Tx. History Hx Alcohol Use: Yes Hx Substance Use: Yes Substance Use Type: Alcohol, Cocaine, Marijuana Hx Substance Use Treatment: Yes ([facility] 08/29/17 -09/02/17 for detox, rehab 09/02/17- ) - Substances Abused Alcohol Route: Oral Frequency: Daily Amount used: 1/5 bacardi, 300 oz beer Age of first use: 10 Date of Last Use: 11/22/17 Crack Route: Smoking Frequency: Daily Amount used: $100 Age of first use: 15 Date of Last Use: 11/22/17 Marijuana/Hashish Route: Smoking Frequency: 1-3 times last 30 days Amount used: 1 blunt Age of first use: 42 Date of Last Use: 11/21/17 Family Disease History - Family Disease History Family Disease History: Other: Father (), Mother (), Daughter ( none) Admission Physical Exam BHS - Vital Signs Vital Signs: Vital Signs - 24 hr 11/23/17 20:31 Temperature 98.7 F Pulse Rate 71 Respiratory 18 Rate Blood Pressure 141/89 - Physical General Appearance: Yes: No Apparent Distress, Appropriately Dressed, Obese, Sweating, Anxious HEENTM: Yes: EOMI, Hearing grossly Normal, Normal ENT Inspection, Normocephalic , Normal Voice, ROSARIO, Pharynx Normal, Tm's normal, Other (wears glasses) Respiratory: Yes: Chest Non-Tender, Lungs Clear, Normal Breath Sounds, No Respiratory Distress, No Accessory Muscle Use Neck: Yes: Within Normal Limits Breast: Yes: Breast Exam Deferred Cardiology: Yes: Regular Rhythm, Regular Rate Abdominal: Yes: Normal Bowel Sounds, Non Tender, Flat, Soft Genitourinary: Yes: Within Normal Limits Back: Yes: Normal Inspection Musculoskeletal: Yes: full range of Motion, Gait Steady, Pelvis Stable Extremities: Yes: Normal Capillary Refill, Normal Inspection, Normal Range of Motion, Non-Tender Neurological: Yes: 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 NML intact, Fully Oriented, Alert, Motor Strength 5/5, Depressed Affect Integumentary: Yes: Normal Color, Warm, Moist Lymphatic: Yes: Within Normal Limits - Diagnostic (1) Obese Current Visit: Yes Status: Chronic Qualifiers: Obesity type: unspecified obesity type Body mass index: BMI 30.0-30.9 (2) Alcohol dependence with uncomplicated withdrawal Current Visit: Yes Status: Acute (3) Cocaine dependence Current Visit: Yes Status: Acute Qualifiers: Substance use status: uncomplicated Qualified Code(s): F14.20 - Cocaine dependence, uncomplicated (4) Depression Current Visit: No Status: Acute Qualifiers: Depression Type: unspecified Qualified Code(s): F32.9 - Major depressive disorder, single episode, unspecified (5) Insomnia Current Visit: Yes Status: Acute Qualifiers: Insomnia type: unspecified Qualified Code(s): G47.00 - Insomnia, unspecified (6) COPD (chronic obstructive pulmonary disease) Current Visit: Yes Status: Chronic Qualifiers: COPD type: emphysema Emphysema type: unilateral Qualified Code(s): J43.0 - Unilateral pulmonary emphysema [MacLeod's syndrome] (7) Diabetes mellitus Current Visit: Yes Status: Chronic Qualifiers: Diabetes mellitus type: type 2 Diabetes mellitus emt intermediate insulin use: with emt intermediate use Diabetes mellitus complication status: without complication Qualified Code(s): E11.9 - Type 2 diabetes mellitus without complications; Z79.4 - [facility] (current) use of insulin (8) Hepatitis C Current Visit: No Status: Chronic Qualifiers: Viral hepatitis chronicity: chronic Hepatic coma status: without hepatic coma Qualified Code(s): B18.2 - Chronic viral hepatitis C (9) Hypercholesterolemia Current Visit: Yes Status: Chronic (10) Hypertension Current Visit: Yes Status: Chronic Qualifiers: Hypertension type: essential hypertension Qualified Code(s): I10 - Essential (primary) hypertension (11) Nicotine dependence Current Visit: Yes Status: Chronic Qualifiers: Nicotine product type: cigarettes Substance use status: uncomplicated Qualified Code(s): F17.210 - Nicotine dependence, cigarettes, uncomplicated Cleared for Admission BHS - Detox or Rehab S Level of Care: Medically Managed Detox Regimen/Protocol: Librium S Breath Alcohol Content Breath Alcohol Content: 0 Urine Drug Screen - Results Drug Screen Negative: No Urine Drug Screen Results: ALLIE-Cocaine
[2017-11-23] MEDS ORDERED: ACETAMINOPHEN 325 MG TABLET (FP) PO PRN (21:26)
[2017-11-23] MEDS ORDERED: IBUPROFEN 400 MG TABLET (FP) PO PRN (21:26)
[2017-11-23] MEDS ORDERED: guaiFENesin/D-METHORPHAN HB 10 ML UNIT-DOSE CUPS PO PRN (21:26)
[2017-11-23] MEDS ORDERED: LOPERAMIDE HCL 2 MG CAPSULE PO PRN (21:26)
[2017-11-23] MEDS ORDERED: P-EPHED 60MG/TRIPROLIDI 2.5MG TABLET PO PRN (21:26)
[2017-11-23] MEDS ORDERED: MAG HYDROX/AL HYDROX/SIMETH 30 ML UNIT-DOSE CUP PO PRN (21:26)
[2017-11-23] MEDS ORDERED: MENTHOL/PHENOL 1 EACH UD MM PRN (21:26)
[2017-11-23] MEDS ORDERED: MAGNESIUM CITRATE 300 ML BOTTLE PO PRN (21:26)
[2017-11-23] MEDS ORDERED: MAGNESIUM HYDROX 2400MG/30ML ORAL SUSPENSION 30 ML CUP PO PRN (21:26)
[2017-11-23] MEDS ORDERED: chlordiazePOXIDE HCL 25 MG CAPSULE PO PRN (21:26)
[2017-11-23] MEDS ORDERED: NICOTINE POLACRILEX 2 MG GUM BC PRN (21:26)
[2017-11-23] MEDS ORDERED: MELATONIN 5 MG TABLETS PO PRN (22:00)
[2017-11-23] MEDS ORDERED: chlordiazePOXIDE HCL 25 MG CAPSULE PO ONE (22:30)
[2017-11-24] MEDS: chlordiazePOXIDE HCL 25 MG CAPSULE PO SCH ×5 (01:32→22:09)
[2017-11-24] MEDS: THIAMINE HCL 100 MG TABLET (FP) PO SCH ×2 (01:34→22:09)
[2017-11-24] MEDS: INSULIN SLIDING SCALE (NOVOLOG) 1 VIAL SQ SCH ×2 (07:20→16:44)
[2017-11-24 10:29] LABS: HEMATOCRIT 41.4 % (35.4-49); HEMOGLOBIN 14.2 GM/dL (11.7-16.9); MCH 26.5 pg (25.7-33.7); MCHC 34.4 g/dl (32.0-35.9); MEAN CELL VOLUME 77.1 fl (80-96); MEAN PLT VOLUME 9.5 fl (7.5-11.1); PLATELET COUNT 204 K/MM3 (134-434); RBC 5.37 M/mm3 (4.00-5.60); RDW 15.9 % (11.9-15.9); WHITE BLOOD COUNT 6.2 K/mm3 (4.0-10.0)
[2017-11-24] MEDS: PRENATAL VITAMINS W/ FOLIC ACID TABLET (FP) PO SCH (10:32)
[2017-11-24] MEDS: NICOTINE 14 MG/24 HOURS TOPICAL PATCH TD SCH (10:32)
[2017-11-24 11:29] LABS: ALBUMIN 3.2 g/dl (3.4-5.0); ANION GAP 7 (8-16); BLOOD UREA NITROGEN 11 mg/dL (7-18); CALCIUM 8.5 mg/dL (8.5-10.1); CHLORIDE 111 mmol/L (98-107); CO2 24 mmol/L (21-32); CREATININE 0.8 mg/dL (0.7-1.3); GLUCOSE,RANDOM 95 mg/dL (74-106); POTASSIUM 4.2 mmol/L (3.5-5.1); SGOT/AST 10 U/L (15-37); SGPT/ALT 20 U/L (12-78); SODIUM 142 mmol/L (136-145)
[2017-11-24 11:31] LABS: ALK PHOS 79 U/L (45-117); BILIRUBIN,TOTAL 0.4 mg/dL (0.2-1.0); TOT PROT 6.2 g/dl (6.4-8.2)
--- NOTE | 2017-11-24 11:54 | EKG ---
Test Reason : Blood Pressure : / mmHG Vent. Rate : 063 BPM Atrial Rate : 063 BPM P-R Int : 164 ms QRS Dur : 094 ms QT Int : 404 ms P-R-T Axes : 058 070 058 degrees QTc Int : 413 ms NORMAL SINUS RHYTHM NORMAL ECG WHEN COMPARED WITH ECG OF 29-AUG-2017 14:41, NO SIGNIFICANT CHANGE WAS FOUND Confirmed by GEREMIAS BENNETT MD ([id number]) on 11/24/2017 11:53:43 AM Referred By: Confirmed By:GEREMIAS BENNETT MD
--- NOTE | 2017-11-24 13:02 | CONSULT ---
[facility] Psychiatric Consult - Data Date of interview: 11/24/17 Admission source: [facility] Identifying data: This is one of multiple admissions to [facility] for this 42 y/ o AA male seeking detox treatment,on ,for cocaine (crack),cannabis and alcohol dependence.Patient is single,a father of four,homeless ([facility]), unemployed and supported on Public Assistance. Substance Abuse History: Confirmed by patient in this interview.Smoking history : Current every day smoker. Have you smoked in the past 12 months: Yes. Aproximately how many cigarettes per day: 9. Cigars Per Day: 0. Hx Chewing Tobacco Use: No. Initiated information on smoking cessation: Yes. 'Breaking Loose' booklet given: 11/23/17. - Substance & Tx. History. Hx Alcohol Use: Yes. Hx Substance Use: Yes. Substance Use Type: Alcohol, Cocaine, Marijuana. Hx Substance Use Treatment: Yes ([facility] 08/29/17 -09/02/17 for detox, rehab 09/02/17- ). - Substances Abused. Alcohol. Route: Oral. Frequency: Daily. Amount used: 1/5 bacardi, 300 oz beer. Age of first use: 10. Date of Last Use : 11/22/17. Crack. Route: Smoking. Frequency: Daily. Amount used: $100. Age of first use: 15. Date of Last Use: 11/22/17. Marijuana/Hashish. Route : Smoking. Frequency: 1-3 times last 30 days. Amount used: 1 blunt. Age of first use: 42. Date of Last Use: 11/21/17 Medical History: Multiple medical co-morbidities : hypertension,COPD,diabetes mellitus,hypercholesterolemia,hepatitis C and a remote history of orthosurgery ( left foot : 4th + 5th toes). Psychiatric History: Patient admits to a long standing history of psychiatric illness (onset of psychiatric issues : age [age]).Diagnosed with Bipolar Disorder.History of multiple psychiatric hospitalizations ([facility] in [place],[facility] in [facility] in the [place],[facility] [facility] and other unnamed institutions)." I have been hospitalized more than 35 times ", as per self-report.Mr Adams is still followed at the [facility] in the [place].Maintained on a regimen of depakote 500 mg po bid + trazodone 200 mg/hs + remeron 30 mg/hs.Admits to sub- optimal adherence (last took his medications more than 15 days ago).History of two suicide attempts (via wrist-cutting in 2009 + 2013). Additional Comment: Urine Drug Screen Results: ALLIE-Cocaine.Noted. Mental Status Exam - Mental Status Exam Alert and Oriented to: Time, Place, Person Cognitive Function: Grossly Intact Patient Appearance: Unkempt, Disheveled Mood: Hostile, Withdrawn, Irritable Affect: Mood Congruent Patient Behavior: Fatigued, Uncooperative, Guarded Speech Pattern: Clear (non spontaneous) Voice Loudness: Normal Thought Process: Goal Oriented Thought Disorder: Not Present Hallucinations: Denies Suicidal Ideation: Denies Homicidal Ideation: Denies Insight/Judgement: Poor Sleep: Poorly, Difficulty falling asleep Appetite: Good Muscle strength/Tone: Normal Gait/Station: Normal Psychiatric Findings - Problem List ([place] 1, 2,3) (1) Alcohol dependence with uncomplicated withdrawal Current Visit: Yes Status: Acute (2) Cocaine dependence Current Visit: Yes Status: Acute Qualifiers: Substance use status: uncomplicated Qualified Code(s): F14.20 - Cocaine dependence, uncomplicated (3) Nicotine dependence Current Visit: Yes Status: Acute Qualifiers: Nicotine product type: cigarettes Substance use status: in withdrawal Qualified Code(s): F17.213 - Nicotine dependence, cigarettes, with withdrawal (4) Bipolar disorder Current Visit: Yes Status: Chronic Qualifiers: Active/Remission status: in full remission Most recent bipolar episode type : mixed Qualified Code(s): F31.78 - Bipolar disorder, in full remission, most recent episode mixed Comment: As per records and self-report.Patient is in active psychiatric OPD care.On medications. (5) Substance induced mood disorder Current Visit: Yes Status: Acute (6) Insomnia Current Visit: Yes Status: Acute Qualifiers: Insomnia type: unspecified Qualified Code(s): G47.00 - Insomnia, unspecified (7) Non compliance w medication regimen Current Visit: Yes Status: Chronic - Initial Treatment Plan Initial Treatment Plan: Psychoeducation.Sleep hygiene.Detoxification.Medications : trazodone 100 mg po hs + remeron 15 mg po hs + depakote 500 mg po bid.Side effects/benefits discussed with the patient.Made aware of the risk for weight gain,alopecia,blood dyscrasias,liver dysfunction,priapism,oversedation and orthostasis.Patient endorses a history of good tolerability to these medications.Agrees to this careplan.Observation.
--- NOTE | 2017-11-24 14:29 | PN ---
S CIWA - CIWA Score Nausea/Vomitin-No Nausea/No Vomiting Muscle Tremors: 4-Moderate,w/Arms Extend Anxiety: 4-Mod. Anxious/Guarded Agitation: 4-Moderately Restless Paroxysmal Sweats: 1-Minimal Palms Moist Orientation: 0-Oriented Tacttile Disturbances: 0-None Auditory Disturbances: 0-None Visual Disturbances: 0-None Headache: 0-None Present CIWA-Ar Total Score: 13 BHS Progress Note (SOAP) Subjective: ANXIETY,SWEATS,TREMORS, FATIGUE. Objective: 11/24/17 14:28 Vital Signs 11/24/17 11/24/17 11/24/17 06:40 09:21 13:56 Temperature 97.9 F 97.9 F 99.3 F Pulse Rate 79 83 88 Respiratory 20 20 20 Rate Blood Pressure 141/72 121/70 126/80 Laboratory Tests 11/23/17 11/24/17 11/24/17 21:55 05:40 07:30 WBC 6.2 RBC 5.37 Hgb 14.2 Hct 41.4 MCV 77.1 L MCH 26.5 MCHC 34.4 RDW 15.9 D Plt Count 204 D MPV 9.5 Sodium Potassium Chloride Carbon Dioxide Anion Gap BUN Creatinine Creat Clearance w eGFR POC Glucometer 120 114 Random Glucose Calcium Total Bilirubin AST ALT Alkaline Phosphatase Total Protein Albumin RPR Titer 11/24/17 11/24/17 07:30 07:30 WBC RBC Hgb Hct MCV MCH MCHC RDW Plt Count MPV Sodium 142 Potassium 4.2 Chloride 111 H Carbon Dioxide 24 Anion Gap 7 L BUN 11 D Creatinine 0.8 Creat Clearance w eGFR > 60 POC Glucometer Random Glucose 95 D Calcium 8.5 Total Bilirubin 0.4 AST 10 L D ALT 20 D Alkaline Phosphatase 79 Total Protein 6.2 L Albumin 3.2 L RPR Titer Nonreactive Assessment: 11/24/17 14:29 WITHDRAWAL SX Plan: CONTINUE DETOX
[2017-11-24 15:40] LABS: URINE APPEARANCE CLEAR; URINE BILIRUBIN NEGATIVE (<2.0 mg/dL); URINE COLOR YELLOW; URINE GLUCOSE (UA) NEGATIVE (NEGATIVE); URINE KETONE NEGATIVE (NEGATIVE); URINE LEUK ESTERASE NEGATIVE (NEGATIVE); URINE NITRITE NEGATIVE (NEGATIVE); URINE PROTEIN NEGATIVE (NEGATIVE)
[2017-11-24] MEDS: MIRTAZAPINE 15 MG TABLET (FP) PO SCH (22:09)
[2017-11-24] MEDS: traZODone HCL 100 MG TABLET (FP) PO SCH (22:09)
[2017-11-24] MEDS: DIVALPROEX SODIUM 500 MG TABLET E.C. PO SCH (22:09)
[2017-11-25] MEDS: chlordiazePOXIDE HCL 25 MG CAPSULE PO SCH ×3 (05:46→17:33)
[2017-11-25] MEDS: INSULIN SLIDING SCALE (NOVOLOG) 1 VIAL SQ SCH ×2 (07:12→16:54)
[2017-11-25] MEDS: DIVALPROEX SODIUM 500 MG TABLET E.C. PO SCH ×2 (11:05→22:13)
[2017-11-25] MEDS: PRENATAL VITAMINS W/ FOLIC ACID TABLET (FP) PO SCH (11:05)
[2017-11-25] MEDS: NICOTINE 14 MG/24 HOURS TOPICAL PATCH TD SCH (11:06)
[2017-11-25] MEDS ORDERED: ALBUTEROL SO4 8 GM HFA INHALER IH SCH (11:30)
[2017-11-25] MEDS: ASPIRIN 81 MG CHEWABLE TABLETS PO SCH (11:52)
[2017-11-25] MEDS: BUDESONIDE/FORMETEROL FUMARATE 80/4.5 mcg INHALER IH SCH ×2 (11:52→22:15)
[2017-11-25] MEDS ORDERED: ALBUTEROL SO4 8 GM HFA INHALER IH PRN (11:55)
--- NOTE | 2017-11-25 12:10 | PN ---
S CIWA - CIWA Score Nausea/Vomitin-No Nausea/No Vomiting Muscle Tremors: 4-Moderate,w/Arms Extend Anxiety: 4-Mod. Anxious/Guarded Agitation: 4-Moderately Restless Paroxysmal Sweats: 1-Minimal Palms Moist Orientation: 0-Oriented Tacttile Disturbances: 0-None Auditory Disturbances: 0-None Visual Disturbances: 0-None Headache: 0-None Present CIWA-Ar Total Score: 13 BHS Progress Note (SOAP) Subjective: ANXIETY,SWEATS,FATIGUE. SPOKE TO PT'S PHARMACIST MR RAMIREZ AT [facility] IN [facility] WHO CONFIRMED COMPLETE LIST OF PT'S MEDICATIONS(SEE HOME LIST PAGE HERE). PT' S PMD IS DR SORIA. JAMES,[facility] REPORTS LAST SHEET METAL TECHNICIAN BY PATIENT WAS ON . PT DID NOT COME TO SHEET METAL TECHNICIAN HIS SUBSEQUENT RX TILL DATE BY HIS PMD PER PHARMACY REPORT. PT WILL FOLLOW UP WITH HIS PMD AFTER DETOX FOR MEDICAL MANAGEMENT OF HIS COMORBID CONDITIONS. Objective: 11/25/17 12:06 Vital Signs 11/25/17 11/25/17 11/25/17 06:13 06:30 09:54 Temperature 97.1 F L 99.0 F Pulse Rate 77 77 Respiratory 18 18 18 Rate Blood Pressure 140/86 119/70 Laboratory Tests 11/23/17 11/24/17 11/24/17 21:55 05:40 07:30 WBC RBC Hgb Hct MCV MCH MCHC RDW Plt Count MPV Sodium Potassium Chloride Carbon Dioxide Anion Gap BUN Creatinine Creat Clearance w eGFR POC Glucometer 120 114 Random Glucose Calcium Total Bilirubin AST ALT Alkaline Phosphatase Total Protein Albumin Urine Color Urine Appearance Urine pH Ur Specific [place] Urine Protein Urine Glucose (UA) Urine Ketones Urine Blood Urine Nitrite Urine Bilirubin Urine Urobilinogen Ur Leukocyte Esterase Valproic Acid < 3.0 L RPR Titer 11/24/17 11/24/17 11/24/17 07:30 07:30 07:30 WBC 6.2 RBC 5.37 Hgb 14.2 Hct 41.4 MCV 77.1 L MCH 26.5 MCHC 34.4 RDW 15.9 D Plt Count 204 D MPV 9.5 Sodium 142 Potassium 4.2 Chloride 111 H Carbon Dioxide 24 Anion Gap 7 L BUN 11 D Creatinine 0.8 Creat Clearance w eGFR > 60 POC Glucometer Random Glucose 95 D Calcium 8.5 Total Bilirubin 0.4 AST 10 L D ALT 20 D Alkaline Phosphatase 79 Total Protein 6.2 L Albumin 3.2 L Urine Color Urine Appearance Urine pH Ur Specific [place] Urine Protein Urine Glucose (UA) Urine Ketones Urine Blood Urine Nitrite Urine Bilirubin Urine Urobilinogen Ur Leukocyte Esterase Valproic Acid RPR Titer Nonreactive 11/24/17 11/24/17 11/25/17 11:20 16:16 05:45 WBC RBC Hgb Hct MCV MCH MCHC RDW Plt Count MPV Sodium Potassium Chloride Carbon Dioxide Anion Gap BUN Creatinine Creat Clearance w eGFR POC Glucometer 91 131 Random Glucose Calcium Total Bilirubin AST ALT Alkaline Phosphatase Total Protein Albumin Urine Color Yellow Urine Appearance Clear Urine pH 6.0 Ur Specific [place] 1.016 Urine Protein Negative Urine Glucose (UA) Negative Urine Ketones Negative Urine Blood Negative Urine Nitrite Negative Urine Bilirubin Negative Urine Urobilinogen 2.0 Ur Leukocyte Esterase Negative Valproic Acid RPR Titer Assessment: 11/25/17 12:06 WITHDRAWAL SX Plan: CONTINUE DETOX REORDER MEDS. MONITOR BLOOD SUGAR AND TREAT REQUIRED.
--- NOTE | 2017-11-25 18:00 | PN ---
[facility] Progress Note Note: Patient on HTN amlodipine, lipitor, metformin, which reports he routinely takes out patient, as per patient he was running the streeets for 13 days and was not taking hi BP, cholesterol and DM meds. Metformin, lipitor and amlodipine ordered. Continue to monitor
[2017-11-25] MEDS: amLODIPine BESYLATE 10 MG TABLET (FP) PO SCH (18:26)
[2017-11-25] MEDS: metFORMIN HCL 500 MG TABLET (FP) PO SCH (19:08)
[2017-11-25] MEDS: traZODone HCL 100 MG TABLET (FP) PO SCH (22:13)
[2017-11-25] MEDS: MIRTAZAPINE 15 MG TABLET (FP) PO SCH (22:13)
[2017-11-25] MEDS: ATORVASTATIN CA 20 MG TABLET (FP) PO SCH (22:13)
[2017-11-25] MEDS: chlordiazePOXIDE 5 MG CAPSULE PO SCH (22:13)
[2017-11-25] MEDS: THIAMINE HCL 100 MG TABLET (FP) PO SCH (22:13)
[2017-11-26] MEDS ORDERED: INSULIN (NOVOLOG) ASPART 100 UNITS/ML 10ML VIAL ONE ×2 (06:16→17:28)
[2017-11-26] MEDS ORDERED: metFORMIN HCL 500 MG TABLET (FP) PO SCH (07:00)
[2017-11-26] MEDS: metFORMIN HCL 500 MG TABLET (FP) PO SCH ×2 (07:42→17:32)
[2017-11-26] MEDS: INSULIN SLIDING SCALE (NOVOLOG) 1 VIAL SQ SCH ×2 (07:42→17:34)
[2017-11-26] MEDS: chlordiazePOXIDE 5 MG CAPSULE PO SCH ×3 (07:42→17:31)
[2017-11-26] MEDS: DIVALPROEX SODIUM 500 MG TABLET E.C. PO SCH ×2 (10:23→22:19)
[2017-11-26] MEDS: BUDESONIDE/FORMETEROL FUMARATE 80/4.5 mcg INHALER IH SCH ×2 (10:23→22:21)
[2017-11-26] MEDS: amLODIPine BESYLATE 10 MG TABLET (FP) PO SCH (10:23)
[2017-11-26] MEDS: PRENATAL VITAMINS W/ FOLIC ACID TABLET (FP) PO SCH (10:23)
[2017-11-26] MEDS: ASPIRIN 81 MG CHEWABLE TABLETS PO SCH (10:23)
[2017-11-26] MEDS: NICOTINE 14 MG/24 HOURS TOPICAL PATCH TD SCH (10:23)
--- NOTE | 2017-11-26 13:12 | PN ---
BHS Progress Note (SOAP) Subjective: ALERT O X 3. SLIGHT FATIGUE. PT REPORTS DETOX IS PROCEEDING WEL. OOB AMBULATING WITH STEADY GAIT. Objective: 11/26/17 13:12 Vital Signs 11/26/17 11/26/17 06:34 09:58 Temperature 97.4 F L 98.2 F Pulse Rate 88 93 H Respiratory 18 20 Rate Blood Pressure 120/67 124/76 Laboratory Tests 11/23/17 11/24/17 11/24/17 21:55 05:40 07:30 WBC RBC Hgb Hct MCV MCH MCHC RDW Plt Count MPV Sodium Potassium Chloride Carbon Dioxide Anion Gap BUN Creatinine Creat Clearance w eGFR POC Glucometer 120 114 Random Glucose Calcium Total Bilirubin AST ALT Alkaline Phosphatase Total Protein Albumin Urine Color Urine Appearance Urine pH Ur Specific [place] Urine Protein Urine Glucose (UA) Urine Ketones Urine Blood Urine Nitrite Urine Bilirubin Urine Urobilinogen Ur Leukocyte Esterase Valproic Acid < 3.0 L RPR Titer 11/24/17 11/24/17 11/24/17 07:30 07:30 07:30 WBC 6.2 RBC 5.37 Hgb 14.2 Hct 41.4 MCV 77.1 L MCH 26.5 MCHC 34.4 RDW 15.9 D Plt Count 204 D MPV 9.5 Sodium 142 Potassium 4.2 Chloride 111 H Carbon Dioxide 24 Anion Gap 7 L BUN 11 D Creatinine 0.8 Creat Clearance w eGFR > 60 POC Glucometer Random Glucose 95 D Calcium 8.5 Total Bilirubin 0.4 AST 10 L D ALT 20 D Alkaline Phosphatase 79 Total Protein 6.2 L Albumin 3.2 L Urine Color Urine Appearance Urine pH Ur Specific [place] Urine Protein Urine Glucose (UA) Urine Ketones Urine Blood Urine Nitrite Urine Bilirubin Urine Urobilinogen Ur Leukocyte Esterase Valproic Acid RPR Titer Nonreactive 11/24/17 11/24/17 11/25/17 11:20 16:16 05:45 WBC RBC Hgb Hct MCV MCH MCHC RDW Plt Count MPV Sodium Potassium Chloride Carbon Dioxide Anion Gap BUN Creatinine Creat Clearance w eGFR POC Glucometer 91 131 Random Glucose Calcium Total Bilirubin AST ALT Alkaline Phosphatase Total Protein Albumin Urine Color Yellow Urine Appearance Clear Urine pH 6.0 Ur Specific [place] 1.016 Urine Protein Negative Urine Glucose (UA) Negative Urine Ketones Negative Urine Blood Negative Urine Nitrite Negative Urine Bilirubin Negative Urine Urobilinogen 2.0 Ur Leukocyte Esterase Negative Valproic Acid RPR Titer 06/07/18 06/08/18 16:30 06:02 WBC RBC Hgb Hct MCV MCH MCHC RDW Plt Count MPV Sodium Potassium Chloride Carbon Dioxide Anion Gap BUN Creatinine Creat Clearance w eGFR POC Glucometer 144 264 Random Glucose Calcium Total Bilirubin AST ALT Alkaline Phosphatase Total Protein Albumin Urine Color Urine Appearance Urine pH Ur Specific [place] Urine Protein Urine Glucose (UA) Urine Ketones Urine Blood Urine Nitrite Urine Bilirubin Urine Urobilinogen Ur Leukocyte Esterase Valproic Acid RPR Titer Assessment: 11/26/17 13:12 WITHDRAWAL SX Plan: CONTINUE DETOX
[2017-11-26] MEDS: chlordiazePOXIDE HCL 10 MG CAPSULE PO SCH (22:19)
[2017-11-26] MEDS: THIAMINE HCL 100 MG TABLET (FP) PO SCH (22:19)
[2017-11-26] MEDS: traZODone HCL 100 MG TABLET (FP) PO SCH (22:19)
[2017-11-26] MEDS: MIRTAZAPINE 15 MG TABLET (FP) PO SCH (22:19)
[2017-11-26] MEDS: ATORVASTATIN CA 20 MG TABLET (FP) PO SCH (22:20)
[2017-11-27] MEDS: chlordiazePOXIDE HCL 10 MG CAPSULE PO SCH (05:52)
[2017-11-27] MEDS: metFORMIN HCL 500 MG TABLET (FP) PO SCH (06:08)
[2017-11-27 06:25] VITALS: BP 128/78; PULSE 76; TEMP 97.1
[2017-11-27] MEDS: INSULIN SLIDING SCALE (NOVOLOG) 1 VIAL SQ SCH (06:54)
--- NOTE | 2017-11-27 18:15 | PN ---
S Progress Note (SOAP) Subjective: Patient denies current Detox symptoms and reports that he feels well overall. Objective: PATIENT A & O X 3, OBSERVED AMBULATING ON UNIT. NO ACUTE DISTRESS. 11/27/17 18:14 Vital Signs Temperature 97.1 F L 11/27/17 06:24 Pulse Rate 76 11/27/17 06:24 Respiratory Rate 18 11/27/17 06:24 Blood Pressure 128/78 11/27/17 06:24 O2 Sat by Pulse Oximetry (%) Laboratory Tests 11/23/17 11/24/17 11/24/17 21:55 05:40 07:30 WBC RBC Hgb Hct MCV MCH MCHC RDW Plt Count MPV Sodium Potassium Chloride Carbon Dioxide Anion Gap BUN Creatinine Creat Clearance w eGFR POC Glucometer 120 114 Random Glucose Calcium Total Bilirubin AST ALT Alkaline Phosphatase Total Protein Albumin Urine Color Urine Appearance Urine pH Ur Specific [place] Urine Protein Urine Glucose (UA) Urine Ketones Urine Blood Urine Nitrite Urine Bilirubin Urine Urobilinogen Ur Leukocyte Esterase Valproic Acid < 3.0 L RPR Titer 11/24/17 11/24/17 11/24/17 07:30 07:30 07:30 WBC 6.2 RBC 5.37 Hgb 14.2 Hct 41.4 MCV 77.1 L MCH 26.5 MCHC 34.4 RDW 15.9 D Plt Count 204 D MPV 9.5 Sodium 142 Potassium 4.2 Chloride 111 H Carbon Dioxide 24 Anion Gap 7 L BUN 11 D Creatinine 0.8 Creat Clearance w eGFR > 60 POC Glucometer Random Glucose 95 D Calcium 8.5 Total Bilirubin 0.4 AST 10 L D ALT 20 D Alkaline Phosphatase 79 Total Protein 6.2 L Albumin 3.2 L Urine Color Urine Appearance Urine pH Ur Specific [place] Urine Protein Urine Glucose (UA) Urine Ketones Urine Blood Urine Nitrite Urine Bilirubin Urine Urobilinogen Ur Leukocyte Esterase Valproic Acid RPR Titer Nonreactive 11/24/17 11/24/17 11/25/17 11:20 16:16 05:45 WBC RBC Hgb Hct MCV MCH MCHC RDW Plt Count MPV Sodium Potassium Chloride Carbon Dioxide Anion Gap BUN Creatinine Creat Clearance w eGFR POC Glucometer 91 131 Random Glucose Calcium Total Bilirubin AST ALT Alkaline Phosphatase Total Protein Albumin Urine Color Yellow Urine Appearance Clear Urine pH 6.0 Ur Specific [place] 1.016 Urine Protein Negative Urine Glucose (UA) Negative Urine Ketones Negative Urine Blood Negative Urine Nitrite Negative Urine Bilirubin Negative Urine Urobilinogen 2.0 Ur Leukocyte Esterase Negative Valproic Acid RPR Titer 11/25/17 11/26/17 11/27/17 16:30 06:02 05:51 WBC RBC Hgb Hct MCV MCH MCHC RDW Plt Count MPV Sodium Potassium Chloride Carbon Dioxide Anion Gap BUN Creatinine Creat Clearance w eGFR POC Glucometer 144 264 128 Random Glucose Calcium Total Bilirubin AST ALT Alkaline Phosphatase Total Protein Albumin Urine Color Urine Appearance Urine pH Ur Specific [place] Urine Protein Urine Glucose (UA) Urine Ketones Urine Blood Urine Nitrite Urine Bilirubin Urine Urobilinogen Ur Leukocyte Esterase Valproic Acid RPR Titer LABS NOTED. Assessment: 11/27/17 18:14 COMPLETION OF DETOX REGIMEN. Plan: PATIENT SCHEDULED FOR DISCHARGE FROM DETOX UNIT TODAY.
--- NOTE | 2017-11-27 18:20 | DS ---
[facility] Detox Discharge Summary Admission Date: 11/23/17 Discharge Date: 11/27/17 - History Present History: Alcohol Dependence, Cocaine Dependence Additional Comments: NO BEDS ARE CURRENTLY AVAILABLE AT [facility], PATIENT WILL GO TO [facility] ([place] FOR NEXT COUPLE OF NIGHTS, THEN WILL CONTACT [facility] IN AM ON 11/29/2017 TO INQUIRE ABOUT ADMISSION AT THAT TIME. PATIENT DECLINED OFFER OF DISCHARGE PRESCRIPTIONS FOR FOR HOME MEDICATIONS AT TIME OF DISCHARGE. PATIENT LEFT DETOX UNIT IN STABLE MEDICAL CONDITION. Pertinent Past History: HTN, Type II DM, C.O.P.D. (Emphysema), Bipolar Disorder, Insomnia, Hep C, Nicotine Dependence. - Physical Exam Results Vital Signs: Vital Signs Temperature 97.1 F L 11/27/17 06:24 Pulse Rate 76 11/27/17 06:24 Respiratory Rate 18 11/27/17 06:24 Blood Pressure 128/78 11/27/17 06:24 O2 Sat by Pulse Oximetry (%) Pertinent Admission Physical Exam Findings: WITHDRAWAL SYMPTOMS. Laboratory Tests 11/23/17 11/24/17 11/24/17 21:55 05:40 07:30 WBC RBC Hgb Hct MCV MCH MCHC RDW Plt Count MPV Sodium Potassium Chloride Carbon Dioxide Anion Gap BUN Creatinine Creat Clearance w eGFR POC Glucometer 120 114 Random Glucose Calcium Total Bilirubin AST ALT Alkaline Phosphatase Total Protein Albumin Urine Color Urine Appearance Urine pH Ur Specific [place] Urine Protein Urine Glucose (UA) Urine Ketones Urine Blood Urine Nitrite Urine Bilirubin Urine Urobilinogen Ur Leukocyte Esterase Valproic Acid < 3.0 L RPR Titer 11/24/17 11/24/17 11/24/17 07:30 07:30 07:30 WBC 6.2 RBC 5.37 Hgb 14.2 Hct 41.4 MCV 77.1 L MCH 26.5 MCHC 34.4 RDW 15.9 D Plt Count 204 D MPV 9.5 Sodium 142 Potassium 4.2 Chloride 111 H Carbon Dioxide 24 Anion Gap 7 L BUN 11 D Creatinine 0.8 Creat Clearance w eGFR > 60 POC Glucometer Random Glucose 95 D Calcium 8.5 Total Bilirubin 0.4 AST 10 L D ALT 20 D Alkaline Phosphatase 79 Total Protein 6.2 L Albumin 3.2 L Urine Color Urine Appearance Urine pH Ur Specific [place] Urine Protein Urine Glucose (UA) Urine Ketones Urine Blood Urine Nitrite Urine Bilirubin Urine Urobilinogen Ur Leukocyte Esterase Valproic Acid RPR Titer Nonreactive 11/24/17 11/24/17 11/25/17 11:20 16:16 05:45 WBC RBC Hgb Hct MCV MCH MCHC RDW Plt Count MPV Sodium Potassium Chloride Carbon Dioxide Anion Gap BUN Creatinine Creat Clearance w eGFR POC Glucometer 91 131 Random Glucose Calcium Total Bilirubin AST ALT Alkaline Phosphatase Total Protein Albumin Urine Color Yellow Urine Appearance Clear Urine pH 6.0 Ur Specific [place] 1.016 Urine Protein Negative Urine Glucose (UA) Negative Urine Ketones Negative Urine Blood Negative Urine Nitrite Negative Urine Bilirubin Negative Urine Urobilinogen 2.0 Ur Leukocyte Esterase Negative Valproic Acid RPR Titer 11/25/17 11/26/17 11/27/17 16:30 06:02 05:51 WBC RBC Hgb Hct MCV MCH MCHC RDW Plt Count MPV Sodium Potassium Chloride Carbon Dioxide Anion Gap BUN Creatinine Creat Clearance w eGFR POC Glucometer 144 264 128 Random Glucose Calcium Total Bilirubin AST ALT Alkaline Phosphatase Total Protein Albumin Urine Color Urine Appearance Urine pH Ur Specific [place] Urine Protein Urine Glucose (UA) Urine Ketones Urine Blood Urine Nitrite Urine Bilirubin Urine Urobilinogen Ur Leukocyte Esterase Valproic Acid RPR Titer LABS NOTED. - Treatment Hospital Course: Detox Protocol Followed, Detoxed Safely, Responded well, Discharged Condition Good, Rehab Referral Accepted Patient has Accepted a Rehab Referral to: [facility] ([place] . - Medication Discharge Medications: Ambulatory Orders Aspirin [ASA -] 81 mg PO DAILY 03/02/16 Atorvastatin Ca [Lipitor] 20 mg PO HS 03/02/16 Divalproex [Depakote -] 1,000 mg PO HS 03/02/16 metFORMIN HCL [Glucophage -] 1,000 mg PO BID 03/02/16 Albuterol Sulfate Inhaler - [Ventolin Hfa Inhaler -] 2 inh PO Q4H PRN 03/17/16 Divalproex [Depakote -] 500 mg PO BID 03/17/16 Fluticasone/Salmeterol [Advair 250-50 Diskus] 1 each IH BID 03/17/16 traZODone HCL [Desyrel -] 100 mg PO HS 03/17/16 Losartan Potassium [Cozaar -] 25 mg PO DAILY 08/29/17 Mirtazapine [Remeron -] 15 mg PO HS 08/29/17 Simvastatin [Zocor -] 20 mg PO HS 08/29/17 Insulin Glargine,Hum.rec.anlog [Lantus] 40 unit SQ HS 08/31/17 Amlodipine Besylate [Norvasc -] 10 mg PO DAILY 11/25/17 Insulin (Levemir) [Levemir Vial] 40 unit SQ DAILY 11/25/17 Divalproex [Depakote -] 500 mg PO BID #60 tablet.ec 11/26/17 Mirtazapine [Remeron -] 15 mg PO HS #30 tablet 11/26/17 Trazodone HCl 100 mg PO HS #30 tablet 11/26/17 - Diagnosis (1) Alcohol dependence with uncomplicated withdrawal Status: Acute (2) Cocaine dependence, uncomplicated Status: Acute (3) Depression Status: Acute Qualifiers: Depression Type: unspecified Qualified Code(s): F32.9 - Major depressive disorder, single episode, unspecified (4) Insomnia Status: Acute Qualifiers: Insomnia type: unspecified Qualified Code(s): G47.00 - Insomnia, unspecified (5) Nicotine dependence Status: Acute Qualifiers: Nicotine product type: cigarettes Substance use status: in withdrawal Qualified Code(s): F17.213 - Nicotine dependence, cigarettes, with withdrawal (6) Substance induced mood disorder Status: Acute (7) Bipolar disorder Status: Chronic Qualifiers: Active/Remission status: in full remission Most recent bipolar episode type : mixed Qualified Code(s): F31.78 - Bipolar disorder, in full remission, most recent episode mixed (8) COPD (chronic obstructive pulmonary disease) Status: Chronic Qualifiers: COPD type: emphysema Emphysema type: unspecified Qualified Code(s): J43.9 - Emphysema, unspecified (9) Diabetes mellitus Status: Chronic Qualifiers: Diabetes mellitus type: type 2 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 insulin 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: with chcf use Diabetes mellitus complication status: without complication Qualified Code(s): E11.9 - Type 2 diabetes mellitus without complications; Z79.4 - terminal makeup operator (current) use of insulin (10) Hepatitis C Status: Chronic Qualifiers: Viral hepatitis chronicity: chronic Hepatic coma status: without hepatic coma Qualified Code(s): B18.2 - Chronic viral hepatitis C (11) Hypercholesterolemia Status: Chronic (12) Hypertension Status: Chronic Qualifiers: Hypertension type: essential hypertension Qualified Code(s): I10 - Essential (primary) hypertension (13) Non compliance w medication regimen Status: Chronic (14) Obese Status: Chronic Qualifiers: Obesity type: unspecified obesity type Obesity classification: adult class 1 (BMI 30 - 34.9) Serious obesity comorbidity presence: unspecified whether serious comorbidity present Body mass index: BMI 30.0-30.9 Qualified Code(s) : E66.9 - Obesity, unspecified; Z68.30 - Body mass index (BMI) 30.0-30.9, adult - AMA Did Patient Leave Against Medical Advice: No
== END 2017-11-27 10:54 | disposition home or self-care (01) | DRG 774 ==
LOC: YASAS 16:24 → Y3N 21:33
PROVIDERS: ADMIT Surgery; ATTEND Surgery
PROC: HZ2ZZZZ Detoxification Services for Substance Abuse Treatment (ICD-10-PCS; principal; 2017-11-23)
DX: F10.230 Alcohol dependence with withdrawal, uncomplicated (principal); F14.20 Cocaine dependence, uncomplicated; F17.213 Nicotine dependence, cigarettes, with withdrawal; F19.24 Other psychoactive substance dependence with psychoactive substance-induced mood disorder; F31.78 Bipolar disorder, in full remission, most recent episode mixed; F32.9 Major depressive disorder, single episode, unspecified; I10 Essential (primary) hypertension; J43.9 Emphysema, unspecified; E11.9 Type 2 diabetes mellitus without complications; B18.2 Chronic viral hepatitis C; E78.00 Pure hypercholesterolemia, unspecified; E66.9 Obesity, unspecified; G47.00 Insomnia, unspecified; Z68.30 Body mass index [BMI] 30.0-30.9, adult; Z91.14 Patient's other noncompliance with medication regimen; Z79.84 Long term (current) use of oral hypoglycemic drugs
CPT/HCPCS: 36415; 80053; 80164; 81003; 82962; 85027; 86593; 93005; 93010

== ENCOUNTER 2020-05-08 14:30 | Inpatient (IN) | payer OTHER ==
[2020-05-08 16:49] VITALS: BMI 29.8
[2020-05-08] MEDS ORDERED: LOPERAMIDE HCL 2 MG CAPSULE PO PRN (17:09)
[2020-05-08] MEDS ORDERED: NICOTINE POLACRILEX 2 MG GUM BC PRN (17:09)
[2020-05-08] MEDS ORDERED: MAGNESIUM CITRATE 300 ML BOTTLE PO PRN (17:09)
[2020-05-08] MEDS ORDERED: MAG HYDROX/AL HYDROX/SIMETH 30 ML UNIT-DOSE CUP PO PRN (17:09)
[2020-05-08] MEDS ORDERED: MAGNESIUM HYDROX 2400MG/30ML ORAL SUSPENSION 30 ML CUP PO PRN (17:09)
[2020-05-08] MEDS ORDERED: IBUPROFEN 400 MG TABLET (FP) PO PRN (17:09)
[2020-05-08] MEDS ORDERED: P-EPHED 60MG/TRIPROLIDI 2.5MG TABLET PO PRN (17:09)
[2020-05-08] MEDS ORDERED: ACETAMINOPHEN 325 MG TABLET (FP) PO PRN (17:09)
[2020-05-08] MEDS ORDERED: guaiFENesin 200 MG/10 ML 10 ML UNIT-DOSE CUPS PO PRN (17:09)
[2020-05-08] MEDS: NICOTINE 14 MG/24 HOURS TOPICAL PATCH TD SCH (18:30)
[2020-05-08] MEDS: PRENATAL VITAMINS W/ FOLIC ACID TABLET (FP) PO SCH (19:03)
[2020-05-08] MEDS: hydrOXYzine PAMOATE 25 MG CAPSULE (FP) PO SCH ×2 (19:03→21:36)
[2020-05-08] MEDS: THIAMINE HCL 100 MG TABLET (FP) PO SCH (21:35)
[2020-05-08] MEDS: MELATONIN 5 MG TABLETS PO SCH (21:35)
[2020-05-08] MEDS: ATORVASTATIN CA 20 MG TABLET (FP) PO SCH (21:36)
[2020-05-08] MEDS: INSULIN SLIDING SCALE (NOVOLOG) 1 VIAL SQ SCH (21:39)
[2020-05-08] MEDS ORDERED: INSULIN (NOVOLOG) ASPART 100 UNITS/ML 10ML VIAL ONE (21:45)
[2020-05-08] MEDS ORDERED: traZODone HCL 50 MG TABLET (FP) PO ONE (22:00)
[2020-05-09] LABS: URINE APPEARANCE CLEAR; URINE BILIRUBIN NEGATIVE (NEGATIVE); URINE COLOR YELLOW; URINE GLUCOSE (UA) 1+ (NEGATIVE); URINE KETONE NEGATIVE (NEGATIVE); URINE LEUK ESTERASE NEGATIVE (NEGATIVE); URINE NITRITE NEGATIVE (NEGATIVE); URINE PROTEIN NEGATIVE (NEGATIVE)
[2020-05-09] MEDS: metFORMIN HCL 500 MG TABLET (FP) PO SCH ×2 (06:08→16:44)
[2020-05-09] MEDS: hydrOXYzine PAMOATE 25 MG CAPSULE (FP) PO SCH ×5 (06:08→21:08)
[2020-05-09] MEDS: INSULIN SLIDING SCALE (NOVOLOG) 1 VIAL SQ SCH ×4 (06:08→21:11)
[2020-05-09] MEDS: ASPIRIN 81 MG CHEWABLE TABLETS PO SCH (09:49)
[2020-05-09] MEDS: PRENATAL VITAMINS W/ FOLIC ACID TABLET (FP) PO SCH (09:49)
[2020-05-09] MEDS: LISINOPRIL 5 MG TABLET PO SCH (09:49)
[2020-05-09] MEDS: NICOTINE 14 MG/24 HOURS TOPICAL PATCH TD SCH (09:50)
[2020-05-09 10:10] LABS: POTASSIUM 4.1 mmol/L (3.5-5.1)
[2020-05-09 10:14] LABS: HEMATOCRIT 48.1 % (35.4-49); HEMOGLOBIN 16.3 GM/dL (11.7-16.9); MCH 26.6 pg (25.7-33.7); MEAN CELL VOLUME 78.4 fl (80-96); MEAN PLT VOLUME 10.2 fl (7.5-11.1); PLATELET COUNT 184 K/MM3 (134-434); RBC 6.13 M/mm3 (4.00-5.60); RDW 14.3 % (11.9-15.9); WHITE BLOOD COUNT 6.6 K/mm3 (4.0-10.0)
[2020-05-09 10:24] LABS: CALCIUM 9.7 mg/dL (8.5-10.1)
[2020-05-09 10:25] LABS: ALBUMIN 4.3 g/dl (3.4-5.0); BLOOD UREA NITROGEN 14.2 mg/dL (7-18)
[2020-05-09 10:31] LABS: BILIRUBIN,TOTAL 1.5 mg/dL (0.2-1); TOT PROT 7.9 g/dl (6.4-8.2)
[2020-05-09 10:35] LABS: SICKLE CELL SCREEN NEGATIVE (NEGATIVE)
[2020-05-09] MEDS: chlorproMAZINE HCL 25 MG TABLET PO SCH ×2 (12:33→21:08)
[2020-05-09] MEDS ORDERED: PT OWN MED DRAWER 7, Y5N ONE (18:57)
[2020-05-09] MEDS: THIAMINE HCL 100 MG TABLET (FP) PO SCH (21:08)
[2020-05-09] MEDS: MELATONIN 5 MG TABLETS PO SCH (21:08)
[2020-05-09] MEDS: ATORVASTATIN CA 20 MG TABLET (FP) PO SCH (21:08)
[2020-05-09] MEDS: traZODone HCL 100 MG TABLET (FP) PO SCH (21:09)
[2020-05-09] MEDS ORDERED: INSULIN (NOVOLOG) ASPART 100 UNITS/ML 10ML VIAL ONE (21:24)
[2020-05-10] MEDS: hydrOXYzine PAMOATE 25 MG CAPSULE (FP) PO SCH (06:01)
[2020-05-10] MEDS ORDERED: INSULIN (NOVOLOG) ASPART 100 UNITS/ML 10ML VIAL ONE ×3 (07:10→16:47)
[2020-05-10] MEDS: INSULIN SLIDING SCALE (NOVOLOG) 1 VIAL SQ SCH ×4 (07:10→22:27)
[2020-05-10] MEDS: metFORMIN HCL 500 MG TABLET (FP) PO SCH ×2 (07:11→16:47)
[2020-05-10] MEDS: LISINOPRIL 5 MG TABLET PO SCH (10:00)
[2020-05-10] MEDS: NICOTINE 14 MG/24 HOURS TOPICAL PATCH TD SCH (10:00)
[2020-05-10] MEDS: ASPIRIN 81 MG CHEWABLE TABLETS PO SCH (10:00)
[2020-05-10] MEDS: PRENATAL VITAMINS W/ FOLIC ACID TABLET (FP) PO SCH (10:00)
[2020-05-10] MEDS: chlorproMAZINE HCL 25 MG TABLET PO SCH ×2 (10:01→21:54)
[2020-05-10] MEDS ORDERED: PT OWN MED DRAWER 7, Y5N ONE (18:31)
[2020-05-10] MEDS: ATORVASTATIN CA 20 MG TABLET (FP) PO SCH (21:53)
[2020-05-10] MEDS: traZODone HCL 100 MG TABLET (FP) PO SCH (21:54)
[2020-05-10] MEDS: THIAMINE HCL 100 MG TABLET (FP) PO SCH (21:54)
[2020-05-10] MEDS: MELATONIN 5 MG TABLETS PO SCH (22:17)
[2020-05-11] MEDS: metFORMIN HCL 500 MG TABLET (FP) PO SCH ×2 (06:32→16:39)
[2020-05-11] MEDS ORDERED: INSULIN (NOVOLOG) ASPART 100 UNITS/ML 10ML VIAL ONE ×3 (06:33→22:25)
[2020-05-11] MEDS: INSULIN SLIDING SCALE (NOVOLOG) 1 VIAL SQ SCH ×4 (06:33→21:20)
[2020-05-11] MEDS: ASPIRIN 81 MG CHEWABLE TABLETS PO SCH (10:04)
[2020-05-11] MEDS: PRENATAL VITAMINS W/ FOLIC ACID TABLET (FP) PO SCH (10:04)
[2020-05-11] MEDS: NICOTINE 14 MG/24 HOURS TOPICAL PATCH TD SCH (10:04)
[2020-05-11] MEDS: chlorproMAZINE HCL 25 MG TABLET PO SCH ×2 (10:05→21:19)
[2020-05-11] MEDS: LISINOPRIL 5 MG TABLET PO SCH (10:05)
[2020-05-11] MEDS: MELATONIN 5 MG TABLETS PO SCH (21:17)
[2020-05-11] MEDS: ATORVASTATIN CA 20 MG TABLET (FP) PO SCH (21:17)
[2020-05-11] MEDS: traZODone HCL 100 MG TABLET (FP) PO SCH (21:17)
[2020-05-11] MEDS: THIAMINE HCL 100 MG TABLET (FP) PO SCH (21:18)
[2020-05-12] MEDS: INSULIN SLIDING SCALE (NOVOLOG) 1 VIAL SQ SCH ×4 (07:30→22:01)
[2020-05-12] MEDS: metFORMIN HCL 500 MG TABLET (FP) PO SCH ×2 (07:30→16:46)
[2020-05-12] MEDS ORDERED: INSULIN (NOVOLOG) ASPART 100 UNITS/ML 10ML VIAL ONE ×4 (07:30→22:35)
[2020-05-12] MEDS: NICOTINE 14 MG/24 HOURS TOPICAL PATCH TD SCH (09:55)
[2020-05-12] MEDS: ASPIRIN 81 MG CHEWABLE TABLETS PO SCH (09:55)
[2020-05-12] MEDS: LISINOPRIL 5 MG TABLET PO SCH (09:55)
[2020-05-12] MEDS: PRENATAL VITAMINS W/ FOLIC ACID TABLET (FP) PO SCH (09:55)
[2020-05-12] MEDS: chlorproMAZINE HCL 25 MG TABLET PO SCH ×2 (09:56→21:59)
[2020-05-12] MEDS: THIAMINE HCL 100 MG TABLET (FP) PO SCH (21:57)
[2020-05-12] MEDS: ATORVASTATIN CA 20 MG TABLET (FP) PO SCH (21:58)
[2020-05-12] MEDS: MELATONIN 5 MG TABLETS PO SCH (21:59)
[2020-05-12] MEDS: traZODone HCL 100 MG TABLET (FP) PO SCH (21:59)
[2020-05-13] MEDS: metFORMIN HCL 500 MG TABLET (FP) PO SCH ×2 (06:28→16:58)
[2020-05-13] MEDS: INSULIN SLIDING SCALE (NOVOLOG) 1 VIAL SQ SCH ×4 (06:30→21:18)
[2020-05-13] MEDS: LISINOPRIL 5 MG TABLET PO SCH (09:59)
[2020-05-13] MEDS: PRENATAL VITAMINS W/ FOLIC ACID TABLET (FP) PO SCH (09:59)
[2020-05-13] MEDS: ASPIRIN 81 MG CHEWABLE TABLETS PO SCH (09:59)
[2020-05-13] MEDS: NICOTINE 14 MG/24 HOURS TOPICAL PATCH TD SCH (09:59)
[2020-05-13] MEDS: chlorproMAZINE HCL 25 MG TABLET PO SCH ×2 (10:00→22:13)
[2020-05-13] MEDS ORDERED: INSULIN (NOVOLOG) ASPART 100 UNITS/ML 10ML VIAL ONE ×2 (11:42→22:40)
[2020-05-13] MEDS ORDERED: PT OWN MED DRAWER 7, Y5N ONE (18:27)
[2020-05-13] MEDS: THIAMINE HCL 100 MG TABLET (FP) PO SCH (21:16)
[2020-05-13] MEDS: ATORVASTATIN CA 20 MG TABLET (FP) PO SCH (21:16)
[2020-05-13] MEDS: traZODone HCL 100 MG TABLET (FP) PO SCH (21:16)
[2020-05-13] MEDS: MELATONIN 5 MG TABLETS PO SCH (21:16)
[2020-05-14] MEDS: INSULIN SLIDING SCALE (NOVOLOG) 1 VIAL SQ SCH ×4 (06:53→21:02)
[2020-05-14] MEDS ORDERED: INSULIN (NOVOLOG) ASPART 100 UNITS/ML 10ML VIAL ONE ×2 (06:53→22:09)
[2020-05-14] MEDS: metFORMIN HCL 500 MG TABLET (FP) PO SCH ×2 (06:53→16:45)
[2020-05-14] MEDS ORDERED: PT OWN MED DRAWER 7, Y5N ONE ×2 (08:48→18:27)
[2020-05-14] MEDS: NICOTINE 14 MG/24 HOURS TOPICAL PATCH TD SCH (10:09)
[2020-05-14] MEDS: ASPIRIN 81 MG CHEWABLE TABLETS PO SCH (10:09)
[2020-05-14] MEDS: PRENATAL VITAMINS W/ FOLIC ACID TABLET (FP) PO SCH (10:09)
[2020-05-14] MEDS: chlorproMAZINE HCL 25 MG TABLET PO SCH ×2 (10:09→21:02)
[2020-05-14] MEDS: LISINOPRIL 5 MG TABLET PO SCH (10:09)
[2020-05-14] MEDS: ALBUTEROL SO4 HFA INHALER IH PRN (10:10)
[2020-05-14] MEDS: ATORVASTATIN CA 20 MG TABLET (FP) PO SCH (21:01)
[2020-05-14] MEDS: MELATONIN 5 MG TABLETS PO SCH (21:01)
[2020-05-14] MEDS: THIAMINE HCL 100 MG TABLET (FP) PO SCH (21:01)
[2020-05-14] MEDS: traZODone HCL 100 MG TABLET (FP) PO SCH (21:02)
[2020-05-15] MEDS ORDERED: INSULIN (NOVOLOG) ASPART 100 UNITS/ML 10ML VIAL ONE ×3 (06:55→21:44)
[2020-05-15] MEDS: INSULIN SLIDING SCALE (NOVOLOG) 1 VIAL SQ SCH ×4 (06:56→21:01)
[2020-05-15] MEDS: metFORMIN HCL 500 MG TABLET (FP) PO SCH ×2 (06:56→16:47)
[2020-05-15] MEDS ORDERED: PT OWN MED DRAWER 7, Y5N ONE ×2 (08:39→18:58)
[2020-05-15] MEDS: LISINOPRIL 5 MG TABLET PO SCH (10:58)
[2020-05-15] MEDS: chlorproMAZINE HCL 25 MG TABLET PO SCH ×2 (10:58→21:00)
[2020-05-15] MEDS: PRENATAL VITAMINS W/ FOLIC ACID TABLET (FP) PO SCH (10:58)
[2020-05-15] MEDS: ASPIRIN 81 MG CHEWABLE TABLETS PO SCH (10:58)
[2020-05-15] MEDS: NICOTINE 14 MG/24 HOURS TOPICAL PATCH TD SCH (10:59)
[2020-05-15] MEDS: THIAMINE HCL 100 MG TABLET (FP) PO SCH (20:59)
[2020-05-15] MEDS: ATORVASTATIN CA 20 MG TABLET (FP) PO SCH (20:59)
[2020-05-15] MEDS: traZODone HCL 100 MG TABLET (FP) PO SCH (20:59)
[2020-05-15] MEDS: MELATONIN 5 MG TABLETS PO SCH (21:00)
[2020-05-16] MEDS: metFORMIN HCL 500 MG TABLET (FP) PO SCH (06:25)
[2020-05-16] MEDS: INSULIN SLIDING SCALE (NOVOLOG) 1 VIAL SQ SCH ×4 (06:27→21:03)
[2020-05-16] MEDS ORDERED: PT OWN MED DRAWER 7, Y5N ONE ×2 (08:41→18:14)
[2020-05-16] MEDS: LISINOPRIL 5 MG TABLET PO SCH (10:19)
[2020-05-16] MEDS: ALBUTEROL SO4 HFA INHALER IH PRN (10:20)
[2020-05-16] MEDS: chlorproMAZINE HCL 25 MG TABLET PO SCH ×2 (10:20→21:02)
[2020-05-16] MEDS: ASPIRIN 81 MG CHEWABLE TABLETS PO SCH (10:20)
[2020-05-16] MEDS: PRENATAL VITAMINS W/ FOLIC ACID TABLET (FP) PO SCH (10:20)
[2020-05-16] MEDS: NICOTINE 14 MG/24 HOURS TOPICAL PATCH TD SCH (10:21)
[2020-05-16] MEDS ORDERED: INSULIN (NOVOLOG) ASPART 100 UNITS/ML 10ML VIAL ONE ×2 (11:42→16:27)
[2020-05-16] MEDS: traZODone HCL 100 MG TABLET (FP) PO SCH (21:02)
[2020-05-16] MEDS: THIAMINE HCL 100 MG TABLET (FP) PO SCH (21:02)
[2020-05-16] MEDS: MELATONIN 5 MG TABLETS PO SCH (21:02)
[2020-05-16] MEDS: ATORVASTATIN CA 20 MG TABLET (FP) PO SCH (21:02)
[2020-05-16] MEDS: INSULIN (LEVEMIR) 100 UNITS/ML UNITS SQ SCH (21:03)
[2020-05-16] MEDS ORDERED: INSULIN (LEVEMIR) 100 UNITS/ML UNITS SQ SCH (22:00)
[2020-05-17] MEDS: INSULIN SLIDING SCALE (NOVOLOG) 1 VIAL SQ SCH ×4 (06:17→22:10)
[2020-05-17] MEDS ORDERED: PT OWN MED DRAWER 7, Y5N ONE ×2 (08:28→19:11)
[2020-05-17] MEDS: PRENATAL VITAMINS W/ FOLIC ACID TABLET (FP) PO SCH (10:30)
[2020-05-17] MEDS: NICOTINE 14 MG/24 HOURS TOPICAL PATCH TD SCH (10:30)
[2020-05-17] MEDS: chlorproMAZINE HCL 25 MG TABLET PO SCH ×2 (10:30→22:07)
[2020-05-17] MEDS: ASPIRIN 81 MG CHEWABLE TABLETS PO SCH (10:30)
[2020-05-17] MEDS: LISINOPRIL 5 MG TABLET PO SCH (10:31)
[2020-05-17] MEDS: ALBUTEROL SO4 HFA INHALER IH PRN (10:31)
[2020-05-17] MEDS ORDERED: INSULIN (NOVOLOG) ASPART 100 UNITS/ML 10ML VIAL ONE ×4 (11:43→22:14)
[2020-05-17] MEDS ORDERED: NALTREXONE MICROSPHERES (VIVITROL) 380 MG DISP.SYRIN IM ONE (14:30)
[2020-05-17] MEDS: ATORVASTATIN CA 20 MG TABLET (FP) PO SCH (21:18)
[2020-05-17] MEDS: traZODone HCL 100 MG TABLET (FP) PO SCH (21:18)
[2020-05-17] MEDS: THIAMINE HCL 100 MG TABLET (FP) PO SCH (21:19)
[2020-05-17] MEDS: MELATONIN 5 MG TABLETS PO SCH (21:19)
[2020-05-17] MEDS: INSULIN (LEVEMIR) 100 UNITS/ML UNITS SQ SCH (22:10)
[2020-05-18] MEDS: INSULIN SLIDING SCALE (NOVOLOG) 1 VIAL SQ SCH ×4 (06:33→21:01)
[2020-05-18] MEDS ORDERED: PT OWN MED DRAWER 7, Y5N ONE (08:32)
[2020-05-18] MEDS: NICOTINE 14 MG/24 HOURS TOPICAL PATCH TD SCH (10:15)
[2020-05-18] MEDS: chlorproMAZINE HCL 25 MG TABLET PO SCH ×2 (10:15→21:00)
[2020-05-18] MEDS: ASPIRIN 81 MG CHEWABLE TABLETS PO SCH (10:15)
[2020-05-18] MEDS: LISINOPRIL 5 MG TABLET PO SCH (10:15)
[2020-05-18] MEDS: PRENATAL VITAMINS W/ FOLIC ACID TABLET (FP) PO SCH (10:15)
[2020-05-18] MEDS ORDERED: INSULIN (NOVOLOG) ASPART 100 UNITS/ML 10ML VIAL ONE ×2 (11:39→21:59)
[2020-05-18] MEDS: traZODone HCL 100 MG TABLET (FP) PO SCH (21:00)
[2020-05-18] MEDS: MELATONIN 5 MG TABLETS PO SCH (21:00)
[2020-05-18] MEDS: THIAMINE HCL 100 MG TABLET (FP) PO SCH (21:00)
[2020-05-18] MEDS: ATORVASTATIN CA 20 MG TABLET (FP) PO SCH (21:00)
[2020-05-18] MEDS: INSULIN (LEVEMIR) 100 UNITS/ML UNITS SQ SCH (21:01)
[2020-05-19] MEDS: INSULIN SLIDING SCALE (NOVOLOG) 1 VIAL SQ SCH ×4 (06:15→21:01)
[2020-05-19] MEDS: ASPIRIN 81 MG CHEWABLE TABLETS PO SCH (10:15)
[2020-05-19] MEDS: PRENATAL VITAMINS W/ FOLIC ACID TABLET (FP) PO SCH (10:15)
[2020-05-19] MEDS: NICOTINE 14 MG/24 HOURS TOPICAL PATCH TD SCH (10:15)
[2020-05-19] MEDS: chlorproMAZINE HCL 25 MG TABLET PO SCH ×2 (10:16→21:00)
[2020-05-19] MEDS: LISINOPRIL 5 MG TABLET PO SCH (10:16)
[2020-05-19] MEDS: ALBUTEROL SO4 HFA INHALER IH PRN (10:17)
[2020-05-19] MEDS ORDERED: INSULIN (NOVOLOG) ASPART 100 UNITS/ML 10ML VIAL ONE ×2 (11:37→21:47)
[2020-05-19] MEDS: traZODone HCL 100 MG TABLET (FP) PO SCH (21:00)
[2020-05-19] MEDS: ATORVASTATIN CA 20 MG TABLET (FP) PO SCH (21:00)
[2020-05-19] MEDS: MELATONIN 5 MG TABLETS PO SCH (21:00)
[2020-05-19] MEDS: INSULIN (LEVEMIR) 100 UNITS/ML UNITS SQ SCH (21:00)
[2020-05-19] MEDS: THIAMINE HCL 100 MG TABLET (FP) PO SCH (21:00)
[2020-05-20] MEDS: INSULIN SLIDING SCALE (NOVOLOG) 1 VIAL SQ SCH ×4 (07:00→21:55)
[2020-05-20] MEDS ORDERED: INSULIN (NOVOLOG) ASPART 100 UNITS/ML 10ML VIAL ONE ×3 (07:04→17:20)
[2020-05-20] MEDS: LISINOPRIL 5 MG TABLET PO SCH (10:59)
[2020-05-20] MEDS: PRENATAL VITAMINS W/ FOLIC ACID TABLET (FP) PO SCH (10:59)
[2020-05-20] MEDS: ASPIRIN 81 MG CHEWABLE TABLETS PO SCH (10:59)
[2020-05-20] MEDS: ALBUTEROL SO4 HFA INHALER IH PRN (11:00)
[2020-05-20] MEDS ORDERED: PT OWN MED DRAWER 7, Y5N ONE (11:01)
[2020-05-20] MEDS: chlorproMAZINE HCL 25 MG TABLET PO SCH ×2 (11:01→21:55)
[2020-05-20] MEDS: NICOTINE 14 MG/24 HOURS TOPICAL PATCH TD SCH (11:02)
[2020-05-20] MEDS ORDERED: NALTREXONE MICROSPHERES (VIVITROL) 380 MG DISP.SYRIN IM ONE (12:00)
[2020-05-20] MEDS: ATORVASTATIN CA 20 MG TABLET (FP) PO SCH (21:54)
[2020-05-20] MEDS: traZODone HCL 100 MG TABLET (FP) PO SCH (21:54)
[2020-05-20] MEDS: MELATONIN 5 MG TABLETS PO SCH (21:54)
[2020-05-20] MEDS: THIAMINE HCL 100 MG TABLET (FP) PO SCH (21:55)
[2020-05-20] MEDS: INSULIN (LEVEMIR) 100 UNITS/ML UNITS SQ SCH (21:56)
[2020-05-21] MEDS ORDERED: INSULIN (NOVOLOG) ASPART 100 UNITS/ML 10ML VIAL ONE ×3 (06:56→16:27)
[2020-05-21] MEDS: INSULIN SLIDING SCALE (NOVOLOG) 1 VIAL SQ SCH ×4 (06:57→21:01)
[2020-05-21] MEDS: glipiZIDE 10 MG TABLET (FP) PO SCH (06:57)
[2020-05-21] MEDS ORDERED: PT OWN MED DRAWER 7, Y5N ONE ×2 (08:52→18:31)
[2020-05-21] MEDS: PRENATAL VITAMINS W/ FOLIC ACID TABLET (FP) PO SCH (09:52)
[2020-05-21] MEDS: LISINOPRIL 5 MG TABLET PO SCH (09:52)
[2020-05-21] MEDS: chlorproMAZINE HCL 25 MG TABLET PO SCH ×2 (09:52→21:00)
[2020-05-21] MEDS: ASPIRIN 81 MG CHEWABLE TABLETS PO SCH (09:52)
[2020-05-21] MEDS: ALBUTEROL SO4 HFA INHALER IH PRN (09:53)
[2020-05-21] MEDS: NICOTINE 14 MG/24 HOURS TOPICAL PATCH TD SCH (10:45)
[2020-05-21] MEDS ORDERED: NALTREXONE MICROSPHERES (VIVITROL) 380 MG DISP.SYRIN IM ONE (12:15)
[2020-05-21] MEDS: metFORMIN HCL 500 MG TABLET (FP) PO SCH (16:27)
[2020-05-21] MEDS: MELATONIN 5 MG TABLETS PO SCH (21:00)
[2020-05-21] MEDS: ATORVASTATIN CA 20 MG TABLET (FP) PO SCH (21:00)
[2020-05-21] MEDS: THIAMINE HCL 100 MG TABLET (FP) PO SCH (21:00)
[2020-05-21] MEDS: traZODone HCL 50 MG TABLET (FP) PO SCH (21:01)
[2020-05-21] MEDS: INSULIN (LEVEMIR) 100 UNITS/ML UNITS SQ SCH (21:01)
[2020-05-22] MEDS ORDERED: glipiZIDE 5 MG TABLET (FP) ONE (04:24)
[2020-05-22] MEDS: INSULIN SLIDING SCALE (NOVOLOG) 1 VIAL SQ SCH ×4 (07:15→21:26)
[2020-05-22] MEDS: glipiZIDE 10 MG TABLET (FP) PO SCH (07:15)
[2020-05-22] MEDS ORDERED: INSULIN (NOVOLOG) ASPART 100 UNITS/ML 10ML VIAL ONE ×3 (07:15→22:57)
[2020-05-22] MEDS: metFORMIN HCL 500 MG TABLET (FP) PO SCH ×2 (07:16→16:31)
[2020-05-22] MEDS: ASPIRIN 81 MG CHEWABLE TABLETS PO SCH (09:32)
[2020-05-22] MEDS: PRENATAL VITAMINS W/ FOLIC ACID TABLET (FP) PO SCH (09:32)
[2020-05-22] MEDS: NICOTINE 14 MG/24 HOURS TOPICAL PATCH TD SCH (09:32)
[2020-05-22] MEDS: LISINOPRIL 5 MG TABLET PO SCH (09:32)
[2020-05-22] MEDS: ALBUTEROL SO4 HFA INHALER IH PRN (09:33)
[2020-05-22] MEDS: chlorproMAZINE HCL 25 MG TABLET PO SCH ×2 (09:33→21:25)
[2020-05-22] MEDS: traZODone HCL 50 MG TABLET (FP) PO SCH (21:23)
[2020-05-22] MEDS: ATORVASTATIN CA 20 MG TABLET (FP) PO SCH (21:24)
[2020-05-22] MEDS: MELATONIN 5 MG TABLETS PO SCH (21:25)
[2020-05-22] MEDS: INSULIN (LEVEMIR) 100 UNITS/ML UNITS SQ SCH (21:26)
[2020-05-22] MEDS: THIAMINE HCL 100 MG TABLET (FP) PO SCH (21:38)
[2020-05-23] MEDS ORDERED: glipiZIDE 5 MG TABLET (FP) ONE (03:06)
[2020-05-23] MEDS: glipiZIDE 10 MG TABLET (FP) PO SCH (06:24)
[2020-05-23] MEDS: metFORMIN HCL 500 MG TABLET (FP) PO SCH ×2 (06:24→16:23)
[2020-05-23] MEDS: INSULIN SLIDING SCALE (NOVOLOG) 1 VIAL SQ SCH ×4 (06:24→21:18)
[2020-05-23] MEDS: NICOTINE 14 MG/24 HOURS TOPICAL PATCH TD SCH (09:40)
[2020-05-23] MEDS: PRENATAL VITAMINS W/ FOLIC ACID TABLET (FP) PO SCH (09:40)
[2020-05-23] MEDS: LISINOPRIL 5 MG TABLET PO SCH (09:40)
[2020-05-23] MEDS: chlorproMAZINE HCL 25 MG TABLET PO SCH ×2 (09:40→21:14)
[2020-05-23] MEDS: ASPIRIN 81 MG CHEWABLE TABLETS PO SCH (09:40)
[2020-05-23] MEDS: ALBUTEROL SO4 HFA INHALER IH PRN (09:41)
[2020-05-23] MEDS: ATORVASTATIN CA 20 MG TABLET (FP) PO SCH (21:13)
[2020-05-23] MEDS: traZODone HCL 50 MG TABLET (FP) PO SCH (21:14)
[2020-05-23] MEDS: MELATONIN 5 MG TABLETS PO SCH (21:17)
[2020-05-23] MEDS: INSULIN (LEVEMIR) 100 UNITS/ML UNITS SQ SCH (21:18)
[2020-05-23] MEDS: THIAMINE HCL 100 MG TABLET (FP) PO SCH (21:18)
[2020-05-24] MEDS: INSULIN SLIDING SCALE (NOVOLOG) 1 VIAL SQ SCH ×4 (06:34→21:28)
[2020-05-24] MEDS: metFORMIN HCL 500 MG TABLET (FP) PO SCH ×2 (07:25→17:07)
[2020-05-24] MEDS: glipiZIDE 10 MG TABLET (FP) PO SCH (07:25)
[2020-05-24] MEDS ORDERED: PT OWN MED DRAWER 7, Y5N ONE ×3 (08:38→18:47)
[2020-05-24] MEDS: chlorproMAZINE HCL 25 MG TABLET PO SCH ×2 (10:36→21:29)
[2020-05-24] MEDS: ASPIRIN 81 MG CHEWABLE TABLETS PO SCH (10:37)
[2020-05-24] MEDS: PRENATAL VITAMINS W/ FOLIC ACID TABLET (FP) PO SCH (10:37)
[2020-05-24] MEDS: LISINOPRIL 5 MG TABLET PO SCH (10:37)
[2020-05-24] MEDS: NICOTINE 14 MG/24 HOURS TOPICAL PATCH TD SCH (10:38)
[2020-05-24] MEDS ORDERED: INSULIN (NOVOLOG) ASPART 100 UNITS/ML 10ML VIAL ONE (17:09)
[2020-05-24] MEDS: THIAMINE HCL 100 MG TABLET (FP) PO SCH (21:28)
[2020-05-24] MEDS: MELATONIN 5 MG TABLETS PO SCH (21:28)
[2020-05-24] MEDS: ATORVASTATIN CA 20 MG TABLET (FP) PO SCH (21:29)
[2020-05-24] MEDS: traZODone HCL 50 MG TABLET (FP) PO SCH (21:29)
[2020-05-24] MEDS: INSULIN (LEVEMIR) 100 UNITS/ML UNITS SQ SCH (21:29)
[2020-05-25] MEDS ORDERED: INSULIN (NOVOLOG) ASPART 100 UNITS/ML 10ML VIAL ONE ×3 (06:45→22:42)
[2020-05-25] MEDS: glipiZIDE 10 MG TABLET (FP) PO SCH (07:25)
[2020-05-25] MEDS: metFORMIN HCL 500 MG TABLET (FP) PO SCH ×2 (07:25→17:42)
[2020-05-25] MEDS: INSULIN SLIDING SCALE (NOVOLOG) 1 VIAL SQ SCH ×4 (07:25→22:45)
[2020-05-25] MEDS ORDERED: PT OWN MED DRAWER 7, Y5N ONE ×2 (08:49→21:31)
[2020-05-25] MEDS: PRENATAL VITAMINS W/ FOLIC ACID TABLET (FP) PO SCH (10:53)
[2020-05-25] MEDS: ASPIRIN 81 MG CHEWABLE TABLETS PO SCH (10:53)
[2020-05-25] MEDS: LISINOPRIL 5 MG TABLET PO SCH (10:53)
[2020-05-25] MEDS: NICOTINE 14 MG/24 HOURS TOPICAL PATCH TD SCH (10:53)
[2020-05-25] MEDS: chlorproMAZINE HCL 25 MG TABLET PO SCH ×2 (10:54→21:31)
[2020-05-25] MEDS: ALBUTEROL SO4 HFA INHALER IH PRN (10:54)
[2020-05-25] MEDS: MELATONIN 5 MG TABLETS PO SCH (21:29)
[2020-05-25] MEDS: THIAMINE HCL 100 MG TABLET (FP) PO SCH (21:29)
[2020-05-25] MEDS: traZODone HCL 50 MG TABLET (FP) PO SCH (21:30)
[2020-05-25] MEDS: ATORVASTATIN CA 20 MG TABLET (FP) PO SCH (21:30)
[2020-05-25] MEDS: INSULIN (LEVEMIR) 100 UNITS/ML UNITS SQ SCH (22:44)
[2020-05-26] MEDS ORDERED: INSULIN (NOVOLOG) ASPART 100 UNITS/ML 10ML VIAL ONE ×3 (05:37→21:54)
[2020-05-26] MEDS: metFORMIN HCL 500 MG TABLET (FP) PO SCH ×2 (07:12→16:36)
[2020-05-26] MEDS: INSULIN SLIDING SCALE (NOVOLOG) 1 VIAL SQ SCH ×4 (07:12→21:57)
[2020-05-26] MEDS: glipiZIDE 10 MG TABLET (FP) PO SCH (07:12)
[2020-05-26] MEDS: LISINOPRIL 5 MG TABLET PO SCH (10:43)
[2020-05-26] MEDS: ASPIRIN 81 MG CHEWABLE TABLETS PO SCH (10:43)
[2020-05-26] MEDS: chlorproMAZINE HCL 25 MG TABLET PO SCH ×2 (10:43→21:57)
[2020-05-26] MEDS: PRENATAL VITAMINS W/ FOLIC ACID TABLET (FP) PO SCH (10:43)
[2020-05-26] MEDS: NICOTINE 14 MG/24 HOURS TOPICAL PATCH TD SCH (10:44)
[2020-05-26] MEDS: ALBUTEROL SO4 HFA INHALER IH PRN (10:44)
[2020-05-26] MEDS ORDERED: PT OWN MED DRAWER 7, Y5N ONE (20:30)
[2020-05-26] MEDS: traZODone HCL 50 MG TABLET (FP) PO SCH (21:55)
[2020-05-26] MEDS: ATORVASTATIN CA 20 MG TABLET (FP) PO SCH (21:55)
[2020-05-26] MEDS: MELATONIN 5 MG TABLETS PO SCH (21:56)
[2020-05-26] MEDS: INSULIN (LEVEMIR) 100 UNITS/ML UNITS SQ SCH (21:56)
[2020-05-26] MEDS: THIAMINE HCL 100 MG TABLET (FP) PO SCH (21:56)
[2020-05-27] MEDS ORDERED: glipiZIDE 5 MG TABLET (FP) ONE (05:08)
[2020-05-27] MEDS: glipiZIDE 10 MG TABLET (FP) PO SCH (06:50)
[2020-05-27] MEDS: INSULIN SLIDING SCALE (NOVOLOG) 1 VIAL SQ SCH ×4 (07:23→21:02)
[2020-05-27] MEDS: metFORMIN HCL 500 MG TABLET (FP) PO SCH ×2 (07:59→16:29)
[2020-05-27] MEDS ORDERED: PT OWN MED DRAWER 7, Y5N ONE (08:42)
[2020-05-27] MEDS ORDERED: COLLOIDAL OATMEAL 1 BAR EACH TP PRN (09:49)
[2020-05-27] MEDS: ASPIRIN 81 MG CHEWABLE TABLETS PO SCH (10:40)
[2020-05-27] MEDS: chlorproMAZINE HCL 25 MG TABLET PO SCH ×2 (10:40→21:01)
[2020-05-27] MEDS: LISINOPRIL 5 MG TABLET PO SCH (10:40)
[2020-05-27] MEDS: PRENATAL VITAMINS W/ FOLIC ACID TABLET (FP) PO SCH (10:40)
[2020-05-27] MEDS: ALBUTEROL SO4 HFA INHALER IH PRN (10:41)
[2020-05-27] MEDS: NICOTINE 14 MG/24 HOURS TOPICAL PATCH TD SCH (10:41)
[2020-05-27] MEDS: MELATONIN 5 MG TABLETS PO SCH (21:01)
[2020-05-27] MEDS: traZODone HCL 50 MG TABLET (FP) PO SCH (21:01)
[2020-05-27] MEDS: INSULIN (LEVEMIR) 100 UNITS/ML UNITS SQ SCH (21:01)
[2020-05-27] MEDS: ATORVASTATIN CA 20 MG TABLET (FP) PO SCH (21:01)
[2020-05-27] MEDS: THIAMINE HCL 100 MG TABLET (FP) PO SCH (21:01)
[2020-05-28] MEDS ORDERED: glipiZIDE 5 MG TABLET (FP) ONE (04:18)
[2020-05-28] MEDS: INSULIN SLIDING SCALE (NOVOLOG) 1 VIAL SQ SCH ×4 (07:03→21:01)
[2020-05-28] MEDS: glipiZIDE 10 MG TABLET (FP) PO SCH (07:03)
[2020-05-28] MEDS: metFORMIN HCL 500 MG TABLET (FP) PO SCH ×2 (07:03→16:27)
[2020-05-28] MEDS: LISINOPRIL 5 MG TABLET PO SCH (09:55)
[2020-05-28] MEDS: PRENATAL VITAMINS W/ FOLIC ACID TABLET (FP) PO SCH (09:55)
[2020-05-28] MEDS: ASPIRIN 81 MG CHEWABLE TABLETS PO SCH (09:55)
[2020-05-28] MEDS: NICOTINE 14 MG/24 HOURS TOPICAL PATCH TD SCH (09:55)
[2020-05-28] MEDS: chlorproMAZINE HCL 25 MG TABLET PO SCH ×2 (09:56→21:00)
[2020-05-28] MEDS: THIAMINE HCL 100 MG TABLET (FP) PO SCH (21:00)
[2020-05-28] MEDS: MELATONIN 5 MG TABLETS PO SCH (21:00)
[2020-05-28] MEDS: INSULIN (LEVEMIR) 100 UNITS/ML UNITS SQ SCH (21:00)
[2020-05-28] MEDS: ATORVASTATIN CA 20 MG TABLET (FP) PO SCH (21:00)
[2020-05-28] MEDS: traZODone HCL 50 MG TABLET (FP) PO SCH (21:00)
[2020-05-29] MEDS ORDERED: glipiZIDE 5 MG TABLET (FP) ONE (05:08)
[2020-05-29] MEDS: glipiZIDE 10 MG TABLET (FP) PO SCH (06:46)
[2020-05-29] MEDS: metFORMIN HCL 500 MG TABLET (FP) PO SCH ×2 (06:46→17:14)
[2020-05-29] MEDS: INSULIN SLIDING SCALE (NOVOLOG) 1 VIAL SQ SCH ×4 (06:47→21:21)
[2020-05-29] MEDS: chlorproMAZINE HCL 25 MG TABLET PO SCH ×2 (10:14→21:22)
[2020-05-29] MEDS: ASPIRIN 81 MG CHEWABLE TABLETS PO SCH (10:14)
[2020-05-29] MEDS: PRENATAL VITAMINS W/ FOLIC ACID TABLET (FP) PO SCH (10:14)
[2020-05-29] MEDS: LISINOPRIL 5 MG TABLET PO SCH (10:14)
[2020-05-29] MEDS: NICOTINE 14 MG/24 HOURS TOPICAL PATCH TD SCH (10:15)
[2020-05-29] MEDS: ALBUTEROL SO4 HFA INHALER IH PRN (10:15)
[2020-05-29] MEDS ORDERED: INSULIN (NOVOLOG) ASPART 100 UNITS/ML 10ML VIAL ONE ×3 (12:04→21:19)
[2020-05-29] MEDS ORDERED: PT OWN MED DRAWER 7, Y5N ONE (18:18)
[2020-05-29] MEDS: ATORVASTATIN CA 20 MG TABLET (FP) PO SCH (21:21)
[2020-05-29] MEDS: traZODone HCL 50 MG TABLET (FP) PO SCH (21:21)
[2020-05-29] MEDS: THIAMINE HCL 100 MG TABLET (FP) PO SCH (21:21)
[2020-05-29] MEDS: MELATONIN 5 MG TABLETS PO SCH (21:21)
[2020-05-29] MEDS: INSULIN (LEVEMIR) 100 UNITS/ML UNITS SQ SCH (21:22)
[2020-05-30] MEDS ORDERED: glipiZIDE 5 MG TABLET (FP) ONE (04:52)
[2020-05-30] MEDS: metFORMIN HCL 500 MG TABLET (FP) PO SCH ×2 (06:14→16:45)
[2020-05-30] MEDS: glipiZIDE 10 MG TABLET (FP) PO SCH (06:14)
[2020-05-30] MEDS: INSULIN SLIDING SCALE (NOVOLOG) 1 VIAL SQ SCH ×4 (07:08→21:49)
[2020-05-30] MEDS: PRENATAL VITAMINS W/ FOLIC ACID TABLET (FP) PO SCH (09:39)
[2020-05-30] MEDS: chlorproMAZINE HCL 25 MG TABLET PO SCH ×2 (09:39→21:51)
[2020-05-30] MEDS: ASPIRIN 81 MG CHEWABLE TABLETS PO SCH (09:39)
[2020-05-30] MEDS: LISINOPRIL 5 MG TABLET PO SCH (09:39)
[2020-05-30] MEDS: NICOTINE 14 MG/24 HOURS TOPICAL PATCH TD SCH (09:40)
[2020-05-30] MEDS: ALBUTEROL SO4 HFA INHALER IH PRN (09:40)
[2020-05-30] MEDS ORDERED: INSULIN (NOVOLOG) ASPART 100 UNITS/ML 10ML VIAL ONE ×2 (16:29→22:11)
[2020-05-30] MEDS: ATORVASTATIN CA 20 MG TABLET (FP) PO SCH (21:45)
[2020-05-30] MEDS: THIAMINE HCL 100 MG TABLET (FP) PO SCH (21:45)
[2020-05-30] MEDS: traZODone HCL 50 MG TABLET (FP) PO SCH (21:45)
[2020-05-30] MEDS: INSULIN (LEVEMIR) 100 UNITS/ML UNITS SQ SCH (21:46)
[2020-05-30] MEDS: MELATONIN 5 MG TABLETS PO SCH (21:46)
[2020-05-30] MEDS ORDERED: INSULIN (LEVEMIR) 100 UNITS/ML UNITS SQ ONE (22:12)
[2020-05-31] MEDS: glipiZIDE 10 MG TABLET (FP) PO SCH (06:54)
[2020-05-31] MEDS: INSULIN SLIDING SCALE (NOVOLOG) 1 VIAL SQ SCH ×4 (06:54→21:01)
[2020-05-31] MEDS: metFORMIN HCL 500 MG TABLET (FP) PO SCH ×2 (06:54→16:40)
[2020-05-31] MEDS ORDERED: PT OWN MED DRAWER 7, Y5N ONE ×2 (08:38→18:29)
[2020-05-31] MEDS: LISINOPRIL 5 MG TABLET PO SCH (09:57)
[2020-05-31] MEDS: chlorproMAZINE HCL 25 MG TABLET PO SCH ×2 (09:57→21:01)
[2020-05-31] MEDS: NICOTINE 14 MG/24 HOURS TOPICAL PATCH TD SCH (09:57)
[2020-05-31] MEDS: ASPIRIN 81 MG CHEWABLE TABLETS PO SCH (09:57)
[2020-05-31] MEDS: PRENATAL VITAMINS W/ FOLIC ACID TABLET (FP) PO SCH (09:57)
[2020-05-31] MEDS: INSULIN (LEVEMIR) 100 UNITS/ML UNITS SQ SCH (21:00)
[2020-05-31] MEDS: traZODone HCL 50 MG TABLET (FP) PO SCH (21:01)
[2020-05-31] MEDS: MELATONIN 5 MG TABLETS PO SCH (21:01)
[2020-05-31] MEDS: THIAMINE HCL 100 MG TABLET (FP) PO SCH (21:01)
[2020-05-31] MEDS: ATORVASTATIN CA 20 MG TABLET (FP) PO SCH (21:01)
[2020-06-01] MEDS ORDERED: glipiZIDE 5 MG TABLET (FP) ONE (03:10)
[2020-06-01] MEDS: metFORMIN HCL 500 MG TABLET (FP) PO SCH ×2 (06:45→16:16)
[2020-06-01] MEDS: glipiZIDE 10 MG TABLET (FP) PO SCH (06:46)
[2020-06-01] MEDS: INSULIN SLIDING SCALE (NOVOLOG) 1 VIAL SQ SCH ×4 (06:46→21:26)
[2020-06-01] MEDS ORDERED: PT OWN MED DRAWER 7, Y5N ONE ×2 (08:31→09:12)
[2020-06-01] MEDS: chlorproMAZINE HCL 25 MG TABLET PO SCH ×2 (09:30→21:25)
[2020-06-01] MEDS: ASPIRIN 81 MG CHEWABLE TABLETS PO SCH (09:30)
[2020-06-01] MEDS: PRENATAL VITAMINS W/ FOLIC ACID TABLET (FP) PO SCH (09:30)
[2020-06-01] MEDS: LISINOPRIL 5 MG TABLET PO SCH (09:30)
[2020-06-01] MEDS: NICOTINE 14 MG/24 HOURS TOPICAL PATCH TD SCH (09:30)
[2020-06-01] MEDS ORDERED: INSULIN (NOVOLOG) ASPART 100 UNITS/ML 10ML VIAL ONE (12:06)
[2020-06-01] MEDS: traZODone HCL 50 MG TABLET (FP) PO SCH (21:25)
[2020-06-01] MEDS: THIAMINE HCL 100 MG TABLET (FP) PO SCH (21:25)
[2020-06-01] MEDS: ATORVASTATIN CA 20 MG TABLET (FP) PO SCH (21:25)
[2020-06-01] MEDS: MELATONIN 5 MG TABLETS PO SCH (21:25)
[2020-06-01] MEDS: INSULIN (LEVEMIR) 100 UNITS/ML UNITS SQ SCH (21:26)
[2020-06-02] MEDS ORDERED: glipiZIDE 5 MG TABLET (FP) ONE (03:03)
[2020-06-02] MEDS: INSULIN SLIDING SCALE (NOVOLOG) 1 VIAL SQ SCH ×4 (06:43→22:40)
[2020-06-02] MEDS: glipiZIDE 10 MG TABLET (FP) PO SCH (06:43)
[2020-06-02] MEDS: metFORMIN HCL 500 MG TABLET (FP) PO SCH ×2 (06:43→16:24)
[2020-06-02] MEDS ORDERED: PT OWN MED DRAWER 7, Y5N ONE ×2 (08:33→18:34)
[2020-06-02] MEDS: ASPIRIN 81 MG CHEWABLE TABLETS PO SCH (10:08)
[2020-06-02] MEDS: LISINOPRIL 5 MG TABLET PO SCH (10:08)
[2020-06-02] MEDS: chlorproMAZINE HCL 25 MG TABLET PO SCH ×2 (10:08→21:14)
[2020-06-02] MEDS: PRENATAL VITAMINS W/ FOLIC ACID TABLET (FP) PO SCH (10:08)
[2020-06-02] MEDS: NICOTINE 14 MG/24 HOURS TOPICAL PATCH TD SCH (10:08)
[2020-06-02] MEDS ORDERED: INSULIN (NOVOLOG) ASPART 100 UNITS/ML 10ML VIAL ONE ×2 (11:30→21:56)
[2020-06-02] MEDS: THIAMINE HCL 100 MG TABLET (FP) PO SCH (21:14)
[2020-06-02] MEDS: ATORVASTATIN CA 20 MG TABLET (FP) PO SCH (21:14)
[2020-06-02] MEDS: traZODone HCL 50 MG TABLET (FP) PO SCH (21:14)
[2020-06-02] MEDS: INSULIN (LEVEMIR) 100 UNITS/ML UNITS SQ SCH (21:14)
[2020-06-02] MEDS: MELATONIN 5 MG TABLETS PO SCH (21:14)
[2020-06-03] MEDS: glipiZIDE 10 MG TABLET (FP) PO SCH (06:44)
[2020-06-03] MEDS: metFORMIN HCL 500 MG TABLET (FP) PO SCH ×2 (06:44→16:49)
[2020-06-03] MEDS: INSULIN SLIDING SCALE (NOVOLOG) 1 VIAL SQ SCH ×4 (06:45→21:26)
[2020-06-03] MEDS ORDERED: PT OWN MED DRAWER 7, Y5N ONE ×3 (08:53→21:24)
[2020-06-03] MEDS: LISINOPRIL 5 MG TABLET PO SCH (10:39)
[2020-06-03] MEDS: chlorproMAZINE HCL 25 MG TABLET PO SCH ×2 (10:39→21:24)
[2020-06-03] MEDS: NICOTINE 14 MG/24 HOURS TOPICAL PATCH TD SCH (10:40)
[2020-06-03] MEDS: ASPIRIN 81 MG CHEWABLE TABLETS PO SCH (10:40)
[2020-06-03] MEDS: PRENATAL VITAMINS W/ FOLIC ACID TABLET (FP) PO SCH (10:40)
[2020-06-03 11:19] VITALS: PULSE 86
[2020-06-03] MEDS ORDERED: INSULIN (NOVOLOG) ASPART 100 UNITS/ML 10ML VIAL ONE ×2 (16:49→21:21)
[2020-06-03] MEDS: ATORVASTATIN CA 20 MG TABLET (FP) PO SCH (21:23)
[2020-06-03] MEDS: traZODone HCL 50 MG TABLET (FP) PO SCH (21:23)
[2020-06-03] MEDS: THIAMINE HCL 100 MG TABLET (FP) PO SCH (21:24)
[2020-06-03] MEDS: MELATONIN 5 MG TABLETS PO SCH (21:25)
[2020-06-03] MEDS: INSULIN (LEVEMIR) 100 UNITS/ML UNITS SQ SCH (21:26)
[2020-06-04 07:11] VITALS: BP 131/89; TEMP 97.5
[2020-06-04] MEDS: INSULIN SLIDING SCALE (NOVOLOG) 1 VIAL SQ SCH (07:38)
[2020-06-04] MEDS: metFORMIN HCL 500 MG TABLET (FP) PO SCH (07:38)
[2020-06-04] MEDS: glipiZIDE 10 MG TABLET (FP) PO SCH (07:38)
[2020-06-04] MEDS ORDERED: PT OWN MED DRAWER 7, Y5N ONE (08:50)
[2020-06-04] MEDS: chlorproMAZINE HCL 25 MG TABLET PO SCH (09:13)
[2020-06-04] MEDS: PRENATAL VITAMINS W/ FOLIC ACID TABLET (FP) PO SCH (09:13)
[2020-06-04] MEDS: ASPIRIN 81 MG CHEWABLE TABLETS PO SCH (09:13)
[2020-06-04] MEDS: LISINOPRIL 5 MG TABLET PO SCH (09:13)
[2020-06-04] MEDS: NICOTINE 14 MG/24 HOURS TOPICAL PATCH TD SCH (09:15)
== END 2020-06-04 09:29 | disposition home or self-care (01) | DRG 772 ==
LOC: YASAS 14:30 → Y3W 17:14
PROVIDERS: ADMIT Allergy & Immunology; ATTEND Allergy & Immunology
PROC: HZ42ZZZ Group Counseling for Substance Abuse Treatment, Cognitive-Behavioral (ICD-10-PCS; principal; 2020-05-08)
DX: F10.20 Alcohol dependence, uncomplicated (principal); F14.20 Cocaine dependence, uncomplicated; F17.210 Nicotine dependence, cigarettes, uncomplicated; F19.24 Other psychoactive substance dependence with psychoactive substance-induced mood disorder; F19.282 Other psychoactive substance dependence with psychoactive substance-induced sleep disorder; F31.78 Bipolar disorder, in full remission, most recent episode mixed; I10 Essential (primary) hypertension; J45.909 Unspecified asthma, uncomplicated; J43.9 Emphysema, unspecified; E11.65 Type 2 diabetes mellitus with hyperglycemia; B18.2 Chronic viral hepatitis C; E78.5 Hyperlipidemia, unspecified; Z79.4 Long term (current) use of insulin; Z79.84 Long term (current) use of oral hypoglycemic drugs; Z91.5 Personal history of self-harm
CPT/HCPCS: 36415; 80053; 81003; 82962; 83036; 85027; 85660; 86780; J2315

== ENCOUNTER 2021-01-20 08:39 | Inpatient (IN) | payer OTHER ==
[2021-01-20 12:16] VITALS: BMI 27.6
[2021-01-20] MEDS ORDERED: ONDANSETRON *ODT* 4 MG TABLET SL PRN (12:35)
[2021-01-20] MEDS ORDERED: MAGNESIUM CITRATE 300 ML BOTTLE PO PRN (12:35)
[2021-01-20] MEDS ORDERED: NICOTINE 10 MG CARTRIDGE (INHALER) IH PRN (12:35)
[2021-01-20] MEDS ORDERED: ACETAMINOPHEN 325 MG TABLET (FP) PO PRN ×2 (12:35)
[2021-01-20] MEDS ORDERED: MAGNESIUM HYDROX 2400MG/30ML ORAL SUSPENSION 30 ML CUP PO PRN (12:35)
[2021-01-20] MEDS ORDERED: MENTHOL/PHENOL 1 EACH UD MM PRN (12:35)
[2021-01-20] MEDS ORDERED: IBUPROFEN 400 MG TABLET (FP) PO PRN (12:35)
[2021-01-20] MEDS ORDERED: BISMUTH SUBSALICYLATE 262 MG/15 ML BTL PO PRN (12:35)
[2021-01-20] MEDS ORDERED: METHOCARBAMOL 500 MG TABLET PO PRN (12:35)
[2021-01-20] MEDS ORDERED: MAG HYDROX/AL HYDROX/SIMETH 30 ML UNIT-DOSE CUP PO PRN (12:35)
[2021-01-20] MEDS ORDERED: ALBUTEROL SO4 HFA INHALER IH PRN (12:38)
[2021-01-20] MEDS ORDERED: COVID-19 VAC,AD26(JANSSEN)/PF 0.5 ML IM ONE (12:41)
[2021-01-20] MEDS: ASPIRIN 81 MG CHEWABLE TABLETS PO SCH (14:07)
[2021-01-20] MEDS: NICOTINE 14 MG/24 HOURS TOPICAL PATCH TD SCH (14:07)
[2021-01-20] MEDS: LISINOPRIL 5 MG TABLET PO SCH (14:07)
[2021-01-20] MEDS: metFORMIN HCL 500 MG TABLET (FP) PO SCH ×2 (14:07→17:10)
[2021-01-20] MEDS: hydrOXYzine PAMOATE 25 MG CAPSULE (FP) PO SCH ×3 (14:49→22:25)
[2021-01-20 15:53] LABS: HEMATOCRIT 46.3 % (35.4-49); HEMOGLOBIN 16.1 GM/dL (11.7-16.9); MCH 27.6 pg (25.7-33.7); MCHC 34.7 g/dl (32.0-35.9); MEAN CELL VOLUME 79.6 fl (80-96); MEAN PLT VOLUME 9.6 fl (7.5-11.1); PLATELET COUNT 231 10^3/uL (134-434); RBC 5.83 M/mm3 (4.00-5.60); RDW 15.7 % (11.9-15.9); WHITE BLOOD COUNT 6.1 K/mm3 (4.0-10.0)
[2021-01-20 16:04] LABS: ALBUMIN 3.8 g/dl (3.4-5.0); BLOOD UREA NITROGEN 9.5 mg/dL (7-18)
[2021-01-20 16:07] LABS: CREATININE 1.1 mg/dL (0.55-1.3)
[2021-01-20 16:09] LABS: TOT PROT 7.1 g/dl (6.4-8.2)
[2021-01-20 16:57] LABS: HIV INTERPRETATION NEGATIVE (NEGATIVE)
[2021-01-20] MEDS: INSULIN SLIDING SCALE (NOVOLOG) 1 VIAL SQ SCH ×2 (18:10→22:26)
[2021-01-20] MEDS: THIAMINE HCL 100 MG TABLET (FP) PO SCH (22:24)
[2021-01-20] MEDS: ATORVASTATIN CA 40 MG TABLET (FP) PO SCH (22:25)
[2021-01-20] MEDS: MELATONIN 5 MG TABLETS PO SCH (22:25)
[2021-01-21] MEDS ORDERED: INSULIN SLIDING SCALE (NOVOLOG) 1 VIAL SQ ONE (04:50)
[2021-01-21] MEDS ORDERED: COVID-19 VAC,AD26(JANSSEN)/PF 0.5 ML IM ONE (06:00)
[2021-01-21] MEDS: hydrOXYzine PAMOATE 25 MG CAPSULE (FP) PO SCH ×5 (06:16→22:30)
[2021-01-21] MEDS: metFORMIN HCL 500 MG TABLET (FP) PO SCH ×2 (06:17→23:17)
[2021-01-21] MEDS: INSULIN SLIDING SCALE (NOVOLOG) 1 VIAL SQ SCH ×4 (06:19→23:17)
[2021-01-21] MEDS ORDERED: glipiZIDE 5 MG TABLET (FP) ONE (06:23)
[2021-01-21] MEDS: glipiZIDE 10 MG TABLET (FP) PO SCH (06:25)
[2021-01-21] MEDS: PRENATAL VITAMINS W/ FOLIC ACID TABLET (FP) PO SCH (10:15)
[2021-01-21] MEDS: NICOTINE 14 MG/24 HOURS TOPICAL PATCH TD SCH (10:16)
[2021-01-21] MEDS: ASPIRIN 81 MG CHEWABLE TABLETS PO SCH (10:16)
[2021-01-21] MEDS: LISINOPRIL 5 MG TABLET PO SCH (10:16)
[2021-01-21] MEDS: diazePAM 5 MG TABLET PO SCH ×3 (13:14→22:33)
[2021-01-21] MEDS: DIVALPROEX SODIUM 500 MG TABLET E.C. PO SCH ×2 (13:15→22:31)
[2021-01-21] MEDS: diazePAM 5 MG TABLET PO ONE ×2 (18:34→18:35)
[2021-01-21] MEDS: ATORVASTATIN CA 40 MG TABLET (FP) PO SCH (22:30)
[2021-01-21] MEDS: THIAMINE HCL 100 MG TABLET (FP) PO SCH (22:30)
[2021-01-21] MEDS: MELATONIN 5 MG TABLETS PO SCH (22:32)
[2021-01-21] MEDS: MIRTAZAPINE 30 MG TABLET PO SCH (22:35)
[2021-01-21] MEDS ORDERED: MIRTAZAPINE 15 MG TABLET (FP) ONE (22:35)
[2021-01-21] MEDS: traZODone HCL 100 MG TABLET (FP) PO SCH (22:36)
[2021-01-22] MEDS: glipiZIDE 10 MG TABLET (FP) PO SCH (07:11)
[2021-01-22] MEDS: INSULIN SLIDING SCALE (NOVOLOG) 1 VIAL SQ SCH ×4 (07:11→22:21)
[2021-01-22] MEDS: hydrOXYzine PAMOATE 25 MG CAPSULE (FP) PO SCH ×5 (07:11→22:19)
[2021-01-22] MEDS: metFORMIN HCL 500 MG TABLET (FP) PO SCH ×2 (07:11→17:49)
[2021-01-22] MEDS: diazePAM 5 MG TABLET PO SCH ×4 (07:11→22:19)
[2021-01-22] MEDS: PRENATAL VITAMINS W/ FOLIC ACID TABLET (FP) PO SCH (10:42)
[2021-01-22] MEDS: DIVALPROEX SODIUM 500 MG TABLET E.C. PO SCH ×2 (10:42→22:18)
[2021-01-22] MEDS: LISINOPRIL 5 MG TABLET PO SCH (10:42)
[2021-01-22] MEDS: ASPIRIN 81 MG CHEWABLE TABLETS PO SCH (10:42)
[2021-01-22] MEDS: NICOTINE 14 MG/24 HOURS TOPICAL PATCH TD SCH (10:43)
[2021-01-22] MEDS ORDERED: MIRTAZAPINE 15 MG TABLET (FP) ONE (21:31)
[2021-01-22] MEDS: THIAMINE HCL 100 MG TABLET (FP) PO SCH (22:18)
[2021-01-22] MEDS: traZODone HCL 100 MG TABLET (FP) PO SCH (22:18)
[2021-01-22] MEDS: ATORVASTATIN CA 40 MG TABLET (FP) PO SCH (22:18)
[2021-01-22] MEDS: MIRTAZAPINE 30 MG TABLET PO SCH (22:19)
[2021-01-22] MEDS: MELATONIN 5 MG TABLETS PO SCH (22:21)
[2021-01-23] MEDS: hydrOXYzine PAMOATE 25 MG CAPSULE (FP) PO SCH ×3 (06:22→15:04)
[2021-01-23] MEDS: metFORMIN HCL 500 MG TABLET (FP) PO SCH ×2 (06:22→17:16)
[2021-01-23] MEDS ORDERED: glipiZIDE 5 MG TABLET (FP) ONE (06:24)
[2021-01-23] MEDS: glipiZIDE 10 MG TABLET (FP) PO SCH (06:26)
[2021-01-23] MEDS: INSULIN SLIDING SCALE (NOVOLOG) 1 VIAL SQ SCH ×4 (06:26→23:04)
[2021-01-23] MEDS: diazePAM 5 MG TABLET PO SCH ×3 (06:59→23:03)
[2021-01-23] MEDS: diazePAM 5 MG TABLET PO PRN (10:37)
[2021-01-23] MEDS: ASPIRIN 81 MG CHEWABLE TABLETS PO SCH (10:37)
[2021-01-23] MEDS: LISINOPRIL 5 MG TABLET PO SCH (10:37)
[2021-01-23] MEDS: DIVALPROEX SODIUM 500 MG TABLET E.C. PO SCH ×2 (10:37→23:03)
[2021-01-23] MEDS: NICOTINE 14 MG/24 HOURS TOPICAL PATCH TD SCH (10:39)
[2021-01-23] MEDS: PRENATAL VITAMINS W/ FOLIC ACID TABLET (FP) PO SCH (10:39)
[2021-01-23] MEDS ORDERED: hydrOXYzine PAMOATE 25 MG CAPSULE (FP) PO PRN ×2 (15:11→20:10)
[2021-01-23] MEDS: traZODone HCL 100 MG TABLET (FP) PO SCH (23:03)
[2021-01-23] MEDS: MIRTAZAPINE 30 MG TABLET PO SCH (23:04)
[2021-01-23] MEDS: THIAMINE HCL 100 MG TABLET (FP) PO SCH (23:04)
[2021-01-23] MEDS: MELATONIN 5 MG TABLETS PO SCH (23:04)
[2021-01-23] MEDS: ATORVASTATIN CA 40 MG TABLET (FP) PO SCH (23:04)
[2021-01-24] MEDS: diazePAM 5 MG TABLET PO SCH ×2 (05:49→18:11)
[2021-01-24] MEDS: glipiZIDE 10 MG TABLET (FP) PO SCH (07:00)
[2021-01-24] MEDS: metFORMIN HCL 500 MG TABLET (FP) PO SCH ×2 (07:00→17:11)
[2021-01-24] MEDS: INSULIN SLIDING SCALE (NOVOLOG) 1 VIAL SQ SCH ×4 (07:01→22:37)
[2021-01-24] MEDS: diazePAM 5 MG TABLET PO PRN (09:35)
[2021-01-24] MEDS: DIVALPROEX SODIUM 500 MG TABLET E.C. PO SCH ×2 (10:12→22:33)
[2021-01-24] MEDS: ASPIRIN 81 MG CHEWABLE TABLETS PO SCH (10:13)
[2021-01-24] MEDS: LISINOPRIL 5 MG TABLET PO SCH (10:13)
[2021-01-24] MEDS: NICOTINE 14 MG/24 HOURS TOPICAL PATCH TD SCH (10:13)
[2021-01-24] MEDS: PRENATAL VITAMINS W/ FOLIC ACID TABLET (FP) PO SCH (10:13)
[2021-01-24] MEDS ORDERED: INSULIN SLIDING SCALE (NOVOLOG) 1 VIAL SQ ONE (15:53)
[2021-01-24] MEDS ORDERED: MIRTAZAPINE 15 MG TABLET (FP) ONE (22:01)
[2021-01-24] MEDS: traZODone HCL 100 MG TABLET (FP) PO SCH (22:33)
[2021-01-24] MEDS: ATORVASTATIN CA 40 MG TABLET (FP) PO SCH (22:33)
[2021-01-24] MEDS: MIRTAZAPINE 30 MG TABLET PO SCH (22:33)
[2021-01-24] MEDS: THIAMINE HCL 100 MG TABLET (FP) PO SCH (22:33)
[2021-01-24] MEDS: MELATONIN 5 MG TABLETS PO SCH (22:37)
[2021-01-25] MEDS: diazePAM 5 MG TABLET PO ONE (06:00)
[2021-01-25] MEDS: metFORMIN HCL 500 MG TABLET (FP) PO SCH (06:11)
[2021-01-25] MEDS: glipiZIDE 10 MG TABLET (FP) PO SCH (06:11)
[2021-01-25] MEDS: INSULIN SLIDING SCALE (NOVOLOG) 1 VIAL SQ SCH ×2 (06:11→11:08)
[2021-01-25 09:52] VITALS: BP 137/77; PULSE 92; TEMP 97.5
[2021-01-25] MEDS: DIVALPROEX SODIUM 500 MG TABLET E.C. PO SCH (10:09)
[2021-01-25] MEDS: LISINOPRIL 5 MG TABLET PO SCH (10:09)
[2021-01-25] MEDS: PRENATAL VITAMINS W/ FOLIC ACID TABLET (FP) PO SCH (10:09)
[2021-01-25] MEDS: NICOTINE 14 MG/24 HOURS TOPICAL PATCH TD SCH (10:09)
[2021-01-25] MEDS: ASPIRIN 81 MG CHEWABLE TABLETS PO SCH (10:09)
[2021-01-25] MEDS ORDERED: INSULIN SLIDING SCALE (NOVOLOG) 1 VIAL SQ ONE (11:07)
== END 2021-01-25 13:09 | disposition other institution (70) | DRG 774 ==
LOC: YASAS 08:39 → Y3N 12:59
PROVIDERS: ADMIT Allergy & Immunology; ATTEND Allergy & Immunology
PROC: HZ2ZZZZ Detoxification Services for Substance Abuse Treatment (ICD-10-PCS; principal; 2021-01-20)
DX: F14.20 Cocaine dependence, uncomplicated (principal); F17.210 Nicotine dependence, cigarettes, uncomplicated; F31.78 Bipolar disorder, in full remission, most recent episode mixed; F19.282 Other psychoactive substance dependence with psychoactive substance-induced sleep disorder; I10 Essential (primary) hypertension; E11.9 Type 2 diabetes mellitus without complications; E78.5 Hyperlipidemia, unspecified; J43.9 Emphysema, unspecified; B18.2 Chronic viral hepatitis C; Z79.4 Long term (current) use of insulin; Z56.0 Unemployment, unspecified; Z59.0 Homelessness
CPT/HCPCS: 36415; 80053; 80164; 82962; 85027; 86780; 87389; C9803; U0003; U0005

== ENCOUNTER 2021-01-25 12:13 | Inpatient (IN) | payer OTHER ==
[2021-01-25] MEDS ORDERED: P-EPHED 60MG/TRIPROLIDI 2.5MG TABLET PO PRN (14:35)
[2021-01-25] MEDS ORDERED: LOPERAMIDE HCL 2 MG CAPSULE PO PRN (14:35)
[2021-01-25] MEDS ORDERED: IBUPROFEN 400 MG TABLET (FP) PO PRN (14:35)
[2021-01-25] MEDS ORDERED: guaiFENesin 200 MG/10 ML 10 ML UNIT-DOSE CUPS PO PRN (14:35)
[2021-01-25] MEDS ORDERED: MAG HYDROX/AL HYDROX/SIMETH 30 ML UNIT-DOSE CUP PO PRN (14:35)
[2021-01-25] MEDS ORDERED: MENTHOL/PHENOL 1 EACH UD MM PRN (14:35)
[2021-01-25] MEDS ORDERED: hydrOXYzine PAMOATE 25 MG CAPSULE (FP) PO PRN (14:35)
[2021-01-25] MEDS ORDERED: MAGNESIUM HYDROX 2400MG/30ML ORAL SUSPENSION 30 ML CUP PO PRN (14:35)
[2021-01-25] MEDS ORDERED: ACETAMINOPHEN 325 MG TABLET (FP) PO PRN (14:35)
[2021-01-25] MEDS ORDERED: MAGNESIUM CITRATE 300 ML BOTTLE PO PRN (14:35)
[2021-01-25] MEDS ORDERED: MASKS NR ONE (15:37)
[2021-01-25] MEDS ORDERED: INSULIN SLIDING SCALE (NOVOLOG) 1 VIAL SQ SCH (16:30)
[2021-01-25] MEDS: metFORMIN HCL 500 MG TABLET (FP) PO SCH (16:47)
[2021-01-25] MEDS ORDERED: ALBUTEROL SO4 HFA INHALER IH PRN (18:51)
[2021-01-25] MEDS: ATORVASTATIN CA 10 MG TABLET (FP) PO SCH (21:12)
[2021-01-25] MEDS: DIVALPROEX SODIUM 500 MG TABLET E.C. PO SCH (21:14)
[2021-01-25] MEDS: MIRTAZAPINE 15 MG TABLET (FP) PO SCH (21:14)
[2021-01-25] MEDS: MELATONIN 5 MG TABLETS PO SCH (21:15)
[2021-01-25] MEDS: THIAMINE HCL 100 MG TABLET (FP) PO SCH (21:15)
[2021-01-25] MEDS: traZODone HCL 50 MG TABLET (FP) PO SCH (21:17)
[2021-01-25] MEDS: INSULIN SLIDING SCALE (NOVOLOG) 1 VIAL SQ SCH (21:18)
[2021-01-25] MEDS ORDERED: MIRTAZAPINE 30 MG TABLET PO SCH (22:00)
[2021-01-25] MEDS ORDERED: DIVALPROEX SODIUM 500 MG TABLET E.C. PO SCH (22:00)
[2021-01-25] MEDS ORDERED: traZODone HCL 150 MG TABLET PO SCH (22:00)
[2021-01-25] MEDS: INSULIN (LEVEMIR) 100 UNITS/ML UNITS SQ SCH (22:10)
[2021-01-25] MEDS ORDERED: PT OWN MED DRAWER 7, Y5N ONE (23:59)
[2021-01-26] MEDS: metFORMIN HCL 500 MG TABLET (FP) PO SCH ×2 (06:29→17:07)
[2021-01-26] MEDS: glipiZIDE 10 MG TABLET (FP) PO SCH (06:29)
[2021-01-26] MEDS: INSULIN SLIDING SCALE (NOVOLOG) 1 VIAL SQ SCH ×4 (06:30→21:32)
[2021-01-26] MEDS ORDERED: MASKS NR ONE (07:41)
[2021-01-26] MEDS: NICOTINE 14 MG/24 HOURS TOPICAL PATCH TD SCH (09:18)
[2021-01-26] MEDS: ASPIRIN 81 MG CHEWABLE TABLETS PO SCH (09:18)
[2021-01-26] MEDS: PRENATAL VITAMINS W/ FOLIC ACID TABLET (FP) PO SCH (09:18)
[2021-01-26] MEDS: DIVALPROEX SODIUM 500 MG TABLET E.C. PO SCH ×2 (09:18→21:25)
[2021-01-26] MEDS: LISINOPRIL 10 MG TABLET PO SCH (09:19)
[2021-01-26] MEDS ORDERED: LISINOPRIL 5 MG TABLET PO SCH (10:00)
[2021-01-26] MEDS ORDERED: INSULIN (NOVOLOG) ASPART 100 UNITS/ML 10ML VIAL ONE (12:02)
[2021-01-26] MEDS ORDERED: PT OWN MED DRAWER 7, Y5N ONE (12:05)
[2021-01-26] MEDS: MIRTAZAPINE 15 MG TABLET (FP) PO SCH (21:25)
[2021-01-26] MEDS: traZODone HCL 50 MG TABLET (FP) PO SCH (21:26)
[2021-01-26] MEDS: ATORVASTATIN CA 10 MG TABLET (FP) PO SCH (21:31)
[2021-01-26] MEDS: INSULIN (LEVEMIR) 100 UNITS/ML UNITS SQ SCH (21:31)
[2021-01-26] MEDS: MELATONIN 5 MG TABLETS PO SCH (21:31)
[2021-01-26] MEDS: THIAMINE HCL 100 MG TABLET (FP) PO SCH (21:32)
[2021-01-27] MEDS ORDERED: PT OWN MED DRAWER 7, Y5N ONE (03:21)
[2021-01-27] MEDS: INSULIN SLIDING SCALE (NOVOLOG) 1 VIAL SQ SCH ×4 (06:49→21:19)
[2021-01-27] MEDS: metFORMIN HCL 500 MG TABLET (FP) PO SCH ×2 (06:49→16:26)
[2021-01-27] MEDS: glipiZIDE 10 MG TABLET (FP) PO SCH (06:49)
[2021-01-27] MEDS: ASPIRIN 81 MG CHEWABLE TABLETS PO SCH (09:54)
[2021-01-27] MEDS: NICOTINE 14 MG/24 HOURS TOPICAL PATCH TD SCH (09:54)
[2021-01-27] MEDS: PRENATAL VITAMINS W/ FOLIC ACID TABLET (FP) PO SCH (09:54)
[2021-01-27] MEDS: LISINOPRIL 10 MG TABLET PO SCH (09:54)
[2021-01-27] MEDS: DIVALPROEX SODIUM 500 MG TABLET E.C. PO SCH ×2 (09:54→21:16)
[2021-01-27] MEDS: traZODone HCL 50 MG TABLET (FP) PO SCH (21:15)
[2021-01-27] MEDS: THIAMINE HCL 100 MG TABLET (FP) PO SCH (21:15)
[2021-01-27] MEDS: MELATONIN 5 MG TABLETS PO SCH (21:15)
[2021-01-27] MEDS: ATORVASTATIN CA 10 MG TABLET (FP) PO SCH (21:15)
[2021-01-27] MEDS: MIRTAZAPINE 15 MG TABLET (FP) PO SCH (21:16)
[2021-01-27] MEDS: INSULIN (LEVEMIR) 100 UNITS/ML UNITS SQ SCH (21:18)
[2021-01-27] MEDS ORDERED: INSULIN (NOVOLOG) ASPART 100 UNITS/ML 10ML VIAL ONE (21:59)
[2021-01-28] MEDS: metFORMIN HCL 500 MG TABLET (FP) PO SCH ×2 (06:29→17:24)
[2021-01-28] MEDS: glipiZIDE 10 MG TABLET (FP) PO SCH (06:29)
[2021-01-28] MEDS ORDERED: INSULIN (NOVOLOG) ASPART 100 UNITS/ML 10ML VIAL ONE (08:25)
[2021-01-28] MEDS: INSULIN SLIDING SCALE (NOVOLOG) 1 VIAL SQ SCH ×4 (08:26→21:20)
[2021-01-28] MEDS: DIVALPROEX SODIUM 500 MG TABLET E.C. PO SCH ×2 (10:05→21:18)
[2021-01-28] MEDS: PRENATAL VITAMINS W/ FOLIC ACID TABLET (FP) PO SCH (10:05)
[2021-01-28] MEDS: ASPIRIN 81 MG CHEWABLE TABLETS PO SCH (10:05)
[2021-01-28] MEDS: LISINOPRIL 10 MG TABLET PO SCH (10:05)
[2021-01-28] MEDS: NICOTINE 14 MG/24 HOURS TOPICAL PATCH TD SCH (10:05)
[2021-01-28] MEDS: INSULIN (LEVEMIR) 100 UNITS/ML UNITS SQ SCH (21:17)
[2021-01-28] MEDS: ATORVASTATIN CA 10 MG TABLET (FP) PO SCH (21:17)
[2021-01-28] MEDS: MIRTAZAPINE 15 MG TABLET (FP) PO SCH (21:18)
[2021-01-28] MEDS: traZODone HCL 50 MG TABLET (FP) PO SCH (21:18)
[2021-01-28] MEDS: THIAMINE HCL 100 MG TABLET (FP) PO SCH (21:19)
[2021-01-28] MEDS: MELATONIN 5 MG TABLETS PO SCH (21:19)
[2021-01-29] MEDS ORDERED: PT OWN MED DRAWER 7, Y5N ONE ×2 (05:53→09:57)
[2021-01-29] MEDS: metFORMIN HCL 500 MG TABLET (FP) PO SCH ×2 (06:39→16:44)
[2021-01-29] MEDS: INSULIN SLIDING SCALE (NOVOLOG) 1 VIAL SQ SCH ×3 (06:39→16:44)
[2021-01-29] MEDS: glipiZIDE 10 MG TABLET (FP) PO SCH (06:39)
[2021-01-29] MEDS: LISINOPRIL 10 MG TABLET PO SCH (09:37)
[2021-01-29] MEDS: DIVALPROEX SODIUM 500 MG TABLET E.C. PO SCH (09:37)
[2021-01-29] MEDS: PRENATAL VITAMINS W/ FOLIC ACID TABLET (FP) PO SCH (09:37)
[2021-01-29] MEDS: NICOTINE 14 MG/24 HOURS TOPICAL PATCH TD SCH (09:37)
[2021-01-29] MEDS: ASPIRIN 81 MG CHEWABLE TABLETS PO SCH (09:37)
[2021-01-29 10:13] VITALS: BP 143/78; PULSE 86
[2021-01-29] MEDS ORDERED: INSULIN (NOVOLOG) ASPART 100 UNITS/ML 10ML VIAL ONE ×2 (12:05→16:44)
[2021-01-29 21:57] VITALS: TEMP 98.2
== END 2021-01-29 20:57 | disposition home or self-care (01) | DRG 772 ==
LOC: YASAS 12:13 → Y3E 12:17
PROVIDERS: ADMIT Allergy & Immunology; ATTEND Allergy & Immunology
PROC: HZ42ZZZ Group Counseling for Substance Abuse Treatment, Cognitive-Behavioral (ICD-10-PCS; principal; 2021-01-25)
DX: F10.20 Alcohol dependence, uncomplicated (principal); F14.20 Cocaine dependence, uncomplicated; F17.210 Nicotine dependence, cigarettes, uncomplicated; I10 Essential (primary) hypertension; E11.9 Type 2 diabetes mellitus without complications; E78.5 Hyperlipidemia, unspecified; Z86.19 Personal history of other infectious and parasitic diseases; Z79.4 Long term (current) use of insulin; Z79.84 Long term (current) use of oral hypoglycemic drugs
CPT/HCPCS: 82962

== ENCOUNTER 2021-04-08 06:51 | Inpatient (IN) | payer OTHER ==
[2021-04-08 08:50] VITALS: BMI 29.7
[2021-04-08] MEDS ORDERED: MAGNESIUM CITRATE 300 ML BOTTLE PO PRN (13:14)
[2021-04-08] MEDS ORDERED: MAGNESIUM HYDROX 2400MG/30ML ORAL SUSPENSION 30 ML CUP PO PRN (13:14)
[2021-04-08] MEDS ORDERED: NICOTINE 10 MG CARTRIDGE (INHALER) IH PRN (13:14)
[2021-04-08] MEDS ORDERED: ACETAMINOPHEN 325 MG TABLET (FP) PO PRN ×2 (13:14)
[2021-04-08] MEDS ORDERED: IBUPROFEN 400 MG TABLET (FP) PO PRN (13:14)
[2021-04-08] MEDS ORDERED: BISMUTH SUBSALICYLATE 262 MG/15 ML BTL PO PRN (13:14)
[2021-04-08] MEDS ORDERED: MAG HYDROX/AL HYDROX/SIMETH 30 ML UNIT-DOSE CUP PO PRN (13:14)
[2021-04-08] MEDS ORDERED: MENTHOL/PHENOL 1 EACH UD MM PRN (13:14)
[2021-04-08] MEDS ORDERED: ONDANSETRON *ODT* 4 MG TABLET SL PRN (13:14)
[2021-04-08] MEDS ORDERED: METHOCARBAMOL 500 MG TABLET PO PRN (13:14)
[2021-04-08] MEDS ORDERED: ALBUTEROL SO4 HFA INHALER IH PRN (13:17)
[2021-04-08] MEDS ORDERED: INSULIN (NOVOLOG) ASPART 100 UNITS/ML 10ML VIAL ONE (13:46)
[2021-04-08] MEDS ORDERED: Insulin (LOG) Aspart 100 UNITS/ML VIAL SQ ONE (13:50)
[2021-04-08] MEDS: hydrOXYzine PAMOATE 25 MG CAPSULE (FP) PO SCH ×3 (15:14→22:40)
[2021-04-08] MEDS ORDERED: INSULIN SLIDING SCALE (NOVOLOG) 1 VIAL SQ SCH (16:30)
[2021-04-08] MEDS: metFORMIN HCL 500 MG TABLET (FP) PO SCH (18:12)
[2021-04-08] MEDS: INSULIN SLIDING SCALE (NOVOLOG) 1 VIAL SQ SCH ×2 (18:16→22:40)
[2021-04-08] MEDS: ATORVASTATIN CA 40 MG TABLET (FP) PO SCH (22:40)
[2021-04-08] MEDS: MELATONIN 5 MG TABLETS PO SCH (22:40)
[2021-04-08] MEDS: FOLIC ACID 1 MG TABLET (FP) PO SCH (22:40)
[2021-04-08] MEDS: THIAMINE HCL 100 MG TABLET (FP) PO SCH (22:40)
[2021-04-09] MEDS: hydrOXYzine PAMOATE 25 MG CAPSULE (FP) PO SCH ×5 (05:59→22:30)
[2021-04-09] MEDS: metFORMIN HCL 500 MG TABLET (FP) PO SCH ×2 (05:59→17:17)
[2021-04-09] MEDS: INSULIN SLIDING SCALE (NOVOLOG) 1 VIAL SQ SCH ×4 (06:07→22:34)
[2021-04-09] MEDS ORDERED: glipiZIDE 10 MG TABLET (FP) PO SCH (07:00)
[2021-04-09] MEDS: FOLIC ACID 1 MG TABLET (FP) PO SCH (10:33)
[2021-04-09] MEDS: LISINOPRIL 10 MG TABLET PO SCH (10:33)
[2021-04-09] MEDS: ASPIRIN 81 MG CHEWABLE TABLETS PO SCH (10:33)
[2021-04-09] MEDS: PRENATAL VITAMINS W/ FOLIC ACID TABLET (FP) PO SCH (10:33)
[2021-04-09 10:56] LABS: HEMATOCRIT 44.4 % (35.4-49); HEMOGLOBIN 15.4 GM/dL (11.7-16.9); MCH 26.9 pg (25.7-33.7); MCHC 34.6 g/dl (32.0-35.9); MEAN CELL VOLUME 77.7 fl (80-96); MEAN PLT VOLUME 9.1 fl (7.5-11.1); PLATELET COUNT 191 10^3/uL (134-434); RBC 5.71 M/mm3 (4.00-5.60); RDW 14.9 % (11.9-15.9); WHITE BLOOD COUNT 5.7 K/mm3 (4.0-10.0)
[2021-04-09 11:10] LABS: BLOOD UREA NITROGEN 11.6 mg/dL (7-18); CALCIUM 9.2 mg/dL (8.5-10.1)
[2021-04-09 11:13] LABS: CREATININE 0.8 mg/dL (0.55-1.3)
[2021-04-09 11:15] LABS: TOT PROT 6.4 g/dl (6.4-8.2)
[2021-04-09 11:16] LABS: BILIRUBIN,TOTAL 1.3 mg/dL (0.2-1)
[2021-04-09 12:30] LABS: HIV INTERPRETATION NEGATIVE (NEGATIVE)
[2021-04-09] MEDS ORDERED: diazePAM 5 MG TABLET PO PRN (14:37)
[2021-04-09] MEDS: diazePAM 5 MG TABLET PO SCH ×2 (17:17→22:31)
[2021-04-09] MEDS ORDERED: BISMUTH SUBSALICYLATE 262 MG/15 ML BTL PO PRN (17:27)
[2021-04-09] MEDS: MELATONIN 5 MG TABLETS PO SCH (22:30)
[2021-04-09] MEDS: ATORVASTATIN CA 40 MG TABLET (FP) PO SCH (22:30)
[2021-04-09] MEDS: THIAMINE HCL 100 MG TABLET (FP) PO SCH (22:31)
[2021-04-09] MEDS: traZODone HCL 150 MG TABLET PO SCH (22:31)
[2021-04-09] MEDS: DIVALPROEX SODIUM 500 MG TABLET E.C. PO SCH (22:31)
[2021-04-09] MEDS: MIRTAZAPINE 15 MG TABLET (FP) PO SCH (22:34)
[2021-04-10] MEDS: hydrOXYzine PAMOATE 25 MG CAPSULE (FP) PO SCH ×5 (05:15→22:45)
[2021-04-10] MEDS: diazePAM 5 MG TABLET PO SCH ×4 (05:15→22:45)
[2021-04-10] MEDS: metFORMIN HCL 500 MG TABLET (FP) PO SCH ×2 (06:01→18:10)
[2021-04-10] MEDS: INSULIN SLIDING SCALE (NOVOLOG) 1 VIAL SQ SCH ×4 (06:01→22:45)
[2021-04-10] MEDS: FOLIC ACID 1 MG TABLET (FP) PO SCH (10:21)
[2021-04-10] MEDS: ASPIRIN 81 MG CHEWABLE TABLETS PO SCH (10:21)
[2021-04-10] MEDS: PRENATAL VITAMINS W/ FOLIC ACID TABLET (FP) PO SCH (10:21)
[2021-04-10] MEDS: DIVALPROEX SODIUM 500 MG TABLET E.C. PO SCH ×2 (10:21→22:45)
[2021-04-10] MEDS: LISINOPRIL 10 MG TABLET PO SCH (10:21)
[2021-04-10] MEDS ORDERED: BISMUTH SUBSALICYLATE 524 MG/30 ML PO PRN (18:21)
[2021-04-10] MEDS: MELATONIN 5 MG TABLETS PO SCH (22:45)
[2021-04-10] MEDS: THIAMINE HCL 100 MG TABLET (FP) PO SCH (22:45)
[2021-04-10] MEDS: ATORVASTATIN CA 40 MG TABLET (FP) PO SCH (22:45)
[2021-04-10] MEDS: traZODone HCL 150 MG TABLET PO SCH (22:45)
[2021-04-10] MEDS: MIRTAZAPINE 15 MG TABLET (FP) PO SCH (22:45)
[2021-04-11] MEDS: diazePAM 5 MG TABLET PO SCH ×3 (05:12→22:13)
[2021-04-11] MEDS: hydrOXYzine PAMOATE 25 MG CAPSULE (FP) PO SCH ×5 (05:12→22:12)
[2021-04-11] MEDS ORDERED: INSULIN SLIDING SCALE (NOVOLOG) 1 VIAL SQ ONE (06:21)
[2021-04-11] MEDS: metFORMIN HCL 500 MG TABLET (FP) PO SCH ×2 (07:54→17:46)
[2021-04-11] MEDS: INSULIN SLIDING SCALE (NOVOLOG) 1 VIAL SQ SCH ×4 (07:54→22:13)
[2021-04-11] MEDS: LISINOPRIL 10 MG TABLET PO SCH (10:30)
[2021-04-11] MEDS: ASPIRIN 81 MG CHEWABLE TABLETS PO SCH (10:30)
[2021-04-11] MEDS: DIVALPROEX SODIUM 500 MG TABLET E.C. PO SCH ×2 (10:30→22:12)
[2021-04-11] MEDS: PRENATAL VITAMINS W/ FOLIC ACID TABLET (FP) PO SCH (10:30)
[2021-04-11] MEDS: FOLIC ACID 1 MG TABLET (FP) PO SCH (10:30)
[2021-04-11] MEDS ORDERED: traZODone HCL 50 MG TABLET (FP) PO SCH (22:00)
[2021-04-11] MEDS: ATORVASTATIN CA 40 MG TABLET (FP) PO SCH (22:12)
[2021-04-11] MEDS: MELATONIN 5 MG TABLETS PO SCH (22:12)
[2021-04-11] MEDS: THIAMINE HCL 100 MG TABLET (FP) PO SCH (22:12)
[2021-04-11] MEDS: MIRTAZAPINE 15 MG TABLET (FP) PO SCH (22:12)
[2021-04-12] MEDS: metFORMIN HCL 500 MG TABLET (FP) PO SCH ×2 (06:18→16:40)
[2021-04-12] MEDS: diazePAM 5 MG TABLET PO SCH ×2 (06:18→17:17)
[2021-04-12] MEDS: hydrOXYzine PAMOATE 25 MG CAPSULE (FP) PO SCH ×4 (06:18→17:17)
[2021-04-12] MEDS: INSULIN SLIDING SCALE (NOVOLOG) 1 VIAL SQ SCH ×3 (06:19→16:41)
[2021-04-12] MEDS: FOLIC ACID 1 MG TABLET (FP) PO SCH (10:23)
[2021-04-12] MEDS: LISINOPRIL 10 MG TABLET PO SCH (10:23)
[2021-04-12] MEDS: ASPIRIN 81 MG CHEWABLE TABLETS PO SCH (10:23)
[2021-04-12] MEDS: DIVALPROEX SODIUM 500 MG TABLET E.C. PO SCH (10:23)
[2021-04-12] MEDS: PRENATAL VITAMINS W/ FOLIC ACID TABLET (FP) PO SCH (10:23)
[2021-04-12 17:24] VITALS: BP 131/83; PULSE 98; TEMP 97.5
[2021-04-13] MEDS ORDERED: diazePAM 5 MG TABLET PO ONE (06:00)
== END 2021-04-12 18:39 | disposition home or self-care (01) | DRG 774 ==
LOC: YASAS 06:51 → Y3N 13:34
PROVIDERS: ADMIT Allergy & Immunology; ATTEND Allergy & Immunology
PROC: HZ2ZZZZ Detoxification Services for Substance Abuse Treatment (ICD-10-PCS; principal; 2021-04-08)
DX: F10.230 Alcohol dependence with withdrawal, uncomplicated (principal); F14.20 Cocaine dependence, uncomplicated; F17.210 Nicotine dependence, cigarettes, uncomplicated; F19.282 Other psychoactive substance dependence with psychoactive substance-induced sleep disorder; F31.78 Bipolar disorder, in full remission, most recent episode mixed; F41.9 Anxiety disorder, unspecified; E78.5 Hyperlipidemia, unspecified; E11.9 Type 2 diabetes mellitus without complications; Z79.4 Long term (current) use of insulin; J45.909 Unspecified asthma, uncomplicated; J43.9 Emphysema, unspecified; E80.6 Other disorders of bilirubin metabolism; B18.2 Chronic viral hepatitis C; Z62.810 Personal history of physical and sexual abuse in childhood; Z91.410 Personal history of adult physical and sexual abuse; Z91.14 Patient's other noncompliance with medication regimen
CPT/HCPCS: 36415; 80053; 80164; 82962; 85027; 86780; 87389; C9803; U0003; U0005

== ENCOUNTER 2021-08-26 15:37 | Inpatient (IN) | payer OTHER ==
[2021-08-26 18:36] VITALS: BMI 29.0
[2021-08-26] MEDS ORDERED: BISMUTH SUBSALICYLATE 524 MG/30 ML PO PRN (19:07)
[2021-08-26] MEDS ORDERED: MELATONIN 5 MG TABLETS PO PRN (19:07)
[2021-08-26] MEDS ORDERED: ONDANSETRON *ODT* 4 MG TABLET SL PRN (19:07)
[2021-08-26] MEDS ORDERED: MAGNESIUM HYDROX 2400MG/30ML ORAL SUSPENSION 30 ML CUP PO PRN (19:07)
[2021-08-26] MEDS ORDERED: ACETAMINOPHEN 325 MG TABLET (FP) PO PRN ×2 (19:07)
[2021-08-26] MEDS ORDERED: MAG HYDROX/AL HYDROX/SIMETH 30 ML UNIT-DOSE CUP PO PRN (19:07)
[2021-08-26] MEDS ORDERED: MAGNESIUM CITRATE 300 ML BOTTLE PO PRN (19:07)
[2021-08-26] MEDS ORDERED: MENTHOL/PHENOL 1 EACH UD MM PRN (19:07)
[2021-08-26] MEDS ORDERED: LOPERAMIDE HCL 2 MG CAPSULE PO PRN (19:07)
[2021-08-26] MEDS ORDERED: METOPROLOL TARTRATE 25 MG TABLET (FP) PO ONE (19:11)
[2021-08-27] MEDS: INSULIN SLIDING SCALE (NOVOLOG) 1 VIAL SQ SCH ×5 (00:12→22:22)
[2021-08-27] MEDS: ASPIRIN 81 MG CHEWABLE TABLETS PO SCH ×2 (00:24→10:15)
[2021-08-27] MEDS: LISINOPRIL 10 MG TABLET PO SCH ×2 (00:24→10:15)
[2021-08-27] MEDS: THIAMINE HCL 100 MG TABLET (FP) PO SCH ×2 (00:29→22:22)
[2021-08-27] MEDS: hydrOXYzine PAMOATE 25 MG CAPSULE (FP) PO PRN (00:29)
[2021-08-27] MEDS: METHOCARBAMOL 500 MG TABLET PO PRN (00:29)
[2021-08-27] MEDS: metFORMIN HCL 500 MG TABLET (FP) PO SCH ×3 (00:29→17:32)
[2021-08-27] MEDS: IBUPROFEN 400 MG TABLET (FP) PO PRN (05:22)
[2021-08-27] MEDS ORDERED: diazePAM 5 MG TABLET PO PRN (10:09)
[2021-08-27] MEDS: PRENATAL VITAMINS W/ FOLIC ACID TABLET (FP) PO SCH (10:14)
[2021-08-27 11:00] LABS: HEMATOCRIT 37.5 % (35.4-49); HEMOGLOBIN 13.1 GM/dL (11.7-16.9); MCH 26.8 pg (25.7-33.7); MEAN CELL VOLUME 76.7 fl (80-96); MEAN PLT VOLUME 8.9 fl (7.5-11.1); PLATELET COUNT 200 10^3/uL (134-434); RBC 4.89 M/mm3 (4.00-5.60); RDW 15.3 % (11.9-15.9); WHITE BLOOD COUNT 4.6 K/mm3 (4.0-10.0)
[2021-08-27] MEDS: diazePAM 5 MG TABLET PO SCH ×4 (11:07→22:23)
[2021-08-27 11:13] LABS: CALCIUM 9.2 mg/dL (8.5-10.1)
[2021-08-27 11:14] LABS: ALBUMIN 3.1 g/dl (3.4-5.0); BLOOD UREA NITROGEN 7.8 mg/dL (7-18)
[2021-08-27 11:17] LABS: CREATININE 0.9 mg/dL (0.55-1.3)
[2021-08-27 11:18] LABS: BILIRUBIN,TOTAL 0.9 mg/dL (0.2-1)
[2021-08-27] MEDS: traZODone HCL 50 MG TABLET (FP) PO SCH (22:22)
[2021-08-27] MEDS: MIRTAZAPINE 15 MG TABLET (FP) PO SCH (22:22)
[2021-08-28] MEDS: metFORMIN HCL 500 MG TABLET (FP) PO SCH ×2 (06:40→16:30)
[2021-08-28] MEDS: diazePAM 5 MG TABLET PO SCH ×4 (06:42→22:37)
[2021-08-28] MEDS: INSULIN SLIDING SCALE (NOVOLOG) 1 VIAL SQ SCH ×4 (06:44→23:09)
[2021-08-28] MEDS: PRENATAL VITAMINS W/ FOLIC ACID TABLET (FP) PO SCH (10:18)
[2021-08-28] MEDS: LISINOPRIL 10 MG TABLET PO SCH (10:18)
[2021-08-28] MEDS: IBUPROFEN 400 MG TABLET (FP) PO PRN ×2 (10:20→18:26)
[2021-08-28] MEDS: ASPIRIN 81 MG CHEWABLE TABLETS PO SCH (10:21)
[2021-08-28] MEDS ORDERED: cloNIDine HCL 0.1 MG TABLET PO ONE (21:41)
[2021-08-28] MEDS: THIAMINE HCL 100 MG TABLET (FP) PO SCH (22:38)
[2021-08-28] MEDS: traZODone HCL 50 MG TABLET (FP) PO SCH (22:38)
[2021-08-28] MEDS: METHOCARBAMOL 500 MG TABLET PO PRN (22:39)
[2021-08-28] MEDS: MIRTAZAPINE 15 MG TABLET (FP) PO SCH (23:09)
[2021-08-29] MEDS: metFORMIN HCL 500 MG TABLET (FP) PO SCH (06:51)
[2021-08-29] MEDS: diazePAM 5 MG TABLET PO SCH ×3 (06:51→22:06)
[2021-08-29] MEDS: INSULIN SLIDING SCALE (NOVOLOG) 1 VIAL SQ SCH ×4 (06:53→22:09)
[2021-08-29] MEDS: IBUPROFEN 400 MG TABLET (FP) PO PRN (06:55)
[2021-08-29] MEDS: ASPIRIN 81 MG CHEWABLE TABLETS PO SCH (10:19)
[2021-08-29] MEDS: PRENATAL VITAMINS W/ FOLIC ACID TABLET (FP) PO SCH (10:19)
[2021-08-29] MEDS: LISINOPRIL 10 MG TABLET PO SCH (10:20)
[2021-08-29] MEDS: LISINOPRIL 20 MG TABLET PO SCH (15:58)
[2021-08-29] MEDS: traZODone HCL 50 MG TABLET (FP) PO SCH (22:06)
[2021-08-29] MEDS: MIRTAZAPINE 15 MG TABLET (FP) PO SCH (22:06)
[2021-08-29] MEDS: THIAMINE HCL 100 MG TABLET (FP) PO SCH (22:07)
[2021-08-30] MEDS: diazePAM 5 MG TABLET PO SCH ×2 (06:45→18:00)
[2021-08-30] MEDS: INSULIN SLIDING SCALE (NOVOLOG) 1 VIAL SQ SCH ×4 (06:48→22:39)
[2021-08-30] MEDS: IBUPROFEN 400 MG TABLET (FP) PO PRN ×2 (06:50→17:59)
[2021-08-30] MEDS: LISINOPRIL 20 MG TABLET PO SCH (10:28)
[2021-08-30] MEDS: ASPIRIN 81 MG CHEWABLE TABLETS PO SCH (10:28)
[2021-08-30] MEDS: PRENATAL VITAMINS W/ FOLIC ACID TABLET (FP) PO SCH (10:28)
[2021-08-30] MEDS: hydrOXYzine PAMOATE 25 MG CAPSULE (FP) PO PRN (18:00)
[2021-08-30] MEDS: traZODone HCL 50 MG TABLET (FP) PO SCH (22:41)
[2021-08-30] MEDS: THIAMINE HCL 100 MG TABLET (FP) PO SCH (22:41)
[2021-08-30] MEDS: MIRTAZAPINE 15 MG TABLET (FP) PO SCH (22:43)
[2021-08-31] MEDS ORDERED: diazePAM 5 MG TABLET PO ONE (06:00)
[2021-08-31] MEDS: IBUPROFEN 400 MG TABLET (FP) PO PRN (06:12)
[2021-08-31] MEDS: INSULIN SLIDING SCALE (NOVOLOG) 1 VIAL SQ SCH (07:06)
[2021-08-31 10:07] VITALS: BP 144/81; PULSE 99; TEMP 98.5
== END 2021-08-31 10:33 | disposition home or self-care (01) | DRG 774 ==
LOC: YASAS 15:37 → Y3N 23:07
PROVIDERS: ADMIT Allergy & Immunology; ATTEND Allergy & Immunology
PROC: HZ2ZZZZ Detoxification Services for Substance Abuse Treatment (ICD-10-PCS; principal; 2021-08-26)
DX: F10.230 Alcohol dependence with withdrawal, uncomplicated (principal); F14.20 Cocaine dependence, uncomplicated; F17.210 Nicotine dependence, cigarettes, uncomplicated; F19.282 Other psychoactive substance dependence with psychoactive substance-induced sleep disorder; F19.24 Other psychoactive substance dependence with psychoactive substance-induced mood disorder; F31.9 Bipolar disorder, unspecified; E78.00 Pure hypercholesterolemia, unspecified; E11.9 Type 2 diabetes mellitus without complications; Z79.84 Long term (current) use of oral hypoglycemic drugs; J43.9 Emphysema, unspecified; B18.2 Chronic viral hepatitis C; Z62.810 Personal history of physical and sexual abuse in childhood; Z91.410 Personal history of adult physical and sexual abuse; Z56.0 Unemployment, unspecified; Z59.00 Homelessness unspecified; Z91.14 Patient's other noncompliance with medication regimen
CPT/HCPCS: 36415; 80053; 82962; 83036; 85027; 86780; C9803; J0735; U0003; U0005

== ENCOUNTER 2022-04-11 17:52 | Inpatient (IN) | payer OTHER ==
[2022-04-11 18:46] VITALS: BMI 27.2
[2022-04-11] MEDS ORDERED: DICYCLOMINE HCL 10 MG CAPSULE PO PRN (20:53)
[2022-04-11] MEDS ORDERED: ONDANSETRON *ODT* 4 MG TABLET SL PRN (20:53)
[2022-04-11] MEDS ORDERED: ACETAMINOPHEN 325 MG TABLET (FP) PO PRN ×2 (20:53)
[2022-04-11] MEDS ORDERED: chlordiazePOXIDE HCL 25 MG CAPSULE PO PRN (20:53)
[2022-04-11] MEDS ORDERED: BISMUTH SUBSALICYLATE 524 MG/30 ML PO PRN (20:53)
[2022-04-11] MEDS ORDERED: NALOXONE HCL (KLOXXADO) 8 MG SPRAY NS PRN (20:53)
[2022-04-11] MEDS ORDERED: MAGNESIUM CITRATE 300 ML BOTTLE PO PRN (20:53)
[2022-04-11] MEDS ORDERED: NICOTINE POLACRILEX 2 MG GUM BUC PRN (20:53)
[2022-04-11] MEDS ORDERED: BENZOCAINE/MENTHOL (CHLORASEPTIC ) LOZENGE MM PRN (20:53)
[2022-04-11] MEDS ORDERED: IBUPROFEN 400 MG TABLET (FP) PO PRN (20:53)
[2022-04-11] MEDS ORDERED: LOPERAMIDE HCL 2 MG CAPSULE PO PRN (20:53)
[2022-04-11] MEDS ORDERED: MAGNESIUM HYDROX 2400MG/30ML ORAL SUSPENSION 30 ML CUP PO PRN (20:53)
[2022-04-11] MEDS ORDERED: MAG HYDROX/AL HYDROX/SIMETH 30 ML UNIT-DOSE CUP PO PRN (20:53)
[2022-04-11] MEDS ORDERED: ALBUTEROL SO4 HFA INHALER IH PRN (20:57)
[2022-04-11] MEDS ORDERED: MELATONIN 5 MG TABLETS PO SCH (22:00)
[2022-04-11] MEDS ORDERED: chlordiazePOXIDE HCL 25 MG CAPSULE ONE (22:44)
[2022-04-11] MEDS: chlordiazePOXIDE HCL 25 MG CAPSULE PO SCH (22:51)
[2022-04-11] MEDS: THIAMINE HCL 100 MG TABLET (FP) PO SCH (22:51)
[2022-04-11] MEDS ORDERED: INSULIN SLIDING SCALE (NOVOLOG) 1 VIAL SQ ONE (22:58)
[2022-04-11] MEDS: INSULIN SLIDING SCALE (NOVOLOG) 1 VIAL SQ SCH (23:15)
[2022-04-12] MEDS ORDERED: chlordiazePOXIDE HCL 25 MG CAPSULE ONE (05:52)
[2022-04-12] MEDS: chlordiazePOXIDE HCL 25 MG CAPSULE PO SCH ×4 (06:23→22:37)
[2022-04-12] MEDS: INSULIN SLIDING SCALE (NOVOLOG) 1 VIAL SQ SCH ×3 (08:57→18:42)
[2022-04-12] MEDS: PRENATAL VITAMINS W/ FOLIC ACID TABLET (FP) PO SCH (10:21)
[2022-04-12] MEDS: NICOTINE 14 MG/24 HOURS TOPICAL PATCH TD SCH (10:21)
[2022-04-12] MEDS ORDERED: ALBUTEROL SO4 HFA INHALER IH PRN (10:21)
[2022-04-12] MEDS: METHOCARBAMOL 500 MG TABLET PO PRN (10:22)
[2022-04-12] MEDS: ASPIRIN 81 MG CHEWABLE TABLETS PO SCH (11:28)
[2022-04-12] MEDS: LISINOPRIL 10 MG TABLET PO SCH (11:28)
[2022-04-12] MEDS: metFORMIN HCL 500 MG TABLET (FP) PO SCH (18:42)
[2022-04-12] MEDS: traZODone HCL 50 MG TABLET (FP) PO SCH (22:37)
[2022-04-12] MEDS: MIRTAZAPINE 15 MG TABLET (FP) PO SCH (22:39)
[2022-04-12] MEDS: chlorproMAZINE HCL 25 MG TABLET PO SCH (22:39)
[2022-04-12] MEDS: THIAMINE HCL 100 MG TABLET (FP) PO SCH (22:39)
[2022-04-12] MEDS: INSULIN (LEVEMIR) 100 UNITS/ML UNITS SQ SCH (23:11)
[2022-04-13] MEDS: chlordiazePOXIDE HCL 25 MG CAPSULE PO SCH ×4 (05:40→22:49)
[2022-04-13] MEDS: glipiZIDE 10 MG TABLET (FP) PO SCH (08:08)
[2022-04-13] MEDS: metFORMIN HCL 500 MG TABLET (FP) PO SCH ×2 (08:08→17:22)
[2022-04-13] MEDS: INSULIN SLIDING SCALE (NOVOLOG) 1 VIAL SQ SCH ×3 (08:09→17:37)
[2022-04-13] MEDS: ASPIRIN 81 MG CHEWABLE TABLETS PO SCH (10:25)
[2022-04-13] MEDS: NICOTINE 14 MG/24 HOURS TOPICAL PATCH TD SCH (10:25)
[2022-04-13] MEDS: PRENATAL VITAMINS W/ FOLIC ACID TABLET (FP) PO SCH (10:25)
[2022-04-13] MEDS: LISINOPRIL 10 MG TABLET PO SCH (10:26)
[2022-04-13] MEDS: chlorproMAZINE HCL 25 MG TABLET PO SCH ×2 (10:26→22:50)
[2022-04-13 11:12] LABS: HEMATOCRIT 44.9 % (35.4-49); MCH 26.8 pg (25.7-33.7); MCHC 33.5 g/dl (32.0-35.9); MEAN CELL VOLUME 79.9 fl (80-96); MEAN PLT VOLUME 9.2 fl (7.5-11.1); PLATELET COUNT 235 10^3/uL (134-434); RBC 5.62 M/mm3 (4.00-5.60); RDW 14.6 % (11.9-15.9); WHITE BLOOD COUNT 5.5 K/mm3 (4.0-10.0)
[2022-04-13 11:29] LABS: CALCIUM 9.1 mg/dL (8.5-10.1)
[2022-04-13 11:30] LABS: ALBUMIN 2.9 g/dl (3.4-5.0); BLOOD UREA NITROGEN 11.4 mg/dL (7-18)
[2022-04-13 11:33] LABS: CREATININE 0.7 mg/dL (0.55-1.3)
[2022-04-13 11:35] LABS: BILIRUBIN,TOTAL 0.4 mg/dL (0.2-1)
[2022-04-13] MEDS ORDERED: INSULIN (NOVOLOG) ASPART 100 UNITS/ML 10ML VIAL ONE (17:20)
[2022-04-13] MEDS: METHOCARBAMOL 500 MG TABLET PO PRN (17:22)
[2022-04-13] MEDS: THIAMINE HCL 100 MG TABLET (FP) PO SCH (22:48)
[2022-04-13] MEDS: traZODone HCL 50 MG TABLET (FP) PO SCH (22:48)
[2022-04-13] MEDS: INSULIN (LEVEMIR) 100 UNITS/ML UNITS SQ SCH (22:49)
[2022-04-13] MEDS: MIRTAZAPINE 15 MG TABLET (FP) PO SCH (22:49)
[2022-04-14] MEDS ORDERED: chlordiazePOXIDE HCL 10 MG CAPSULE PO PRN
[2022-04-14] MEDS: chlordiazePOXIDE HCL 10 MG CAPSULE PO SCH ×4 (05:52→22:23)
[2022-04-14] MEDS: INSULIN SLIDING SCALE (NOVOLOG) 1 VIAL SQ SCH ×3 (06:20→17:41)
[2022-04-14] MEDS: metFORMIN HCL 500 MG TABLET (FP) PO SCH ×2 (06:20→17:33)
[2022-04-14] MEDS: glipiZIDE 10 MG TABLET (FP) PO SCH (06:20)
[2022-04-14] MEDS: ASPIRIN 81 MG CHEWABLE TABLETS PO SCH (10:28)
[2022-04-14] MEDS: LISINOPRIL 10 MG TABLET PO SCH (10:28)
[2022-04-14] MEDS: chlorproMAZINE HCL 25 MG TABLET PO SCH ×2 (10:29→22:40)
[2022-04-14] MEDS: NICOTINE 14 MG/24 HOURS TOPICAL PATCH TD SCH (10:31)
[2022-04-14] MEDS: PRENATAL VITAMINS W/ FOLIC ACID TABLET (FP) PO SCH (10:31)
[2022-04-14] MEDS ORDERED: INSULIN (NOVOLOG) ASPART 100 UNITS/ML 10ML VIAL ONE ×2 (12:09→16:53)
[2022-04-14] MEDS: IBUPROFEN 600 MG TABLET (FP) PO PRN (17:33)
[2022-04-14] MEDS: traZODone HCL 50 MG TABLET (FP) PO SCH (22:23)
[2022-04-14] MEDS: INSULIN (LEVEMIR) 100 UNITS/ML UNITS SQ SCH (22:23)
[2022-04-14] MEDS: THIAMINE HCL 100 MG TABLET (FP) PO SCH (22:23)
[2022-04-14] MEDS: MIRTAZAPINE 15 MG TABLET (FP) PO SCH (22:23)
[2022-04-15] MEDS: metFORMIN HCL 500 MG TABLET (FP) PO SCH ×2 (06:19→17:39)
[2022-04-15] MEDS: glipiZIDE 10 MG TABLET (FP) PO SCH (06:20)
[2022-04-15] MEDS: chlordiazePOXIDE HCL 10 MG CAPSULE PO SCH ×2 (06:20→17:39)
[2022-04-15] MEDS: IBUPROFEN 600 MG TABLET (FP) PO PRN ×3 (06:21→22:08)
[2022-04-15] MEDS: INSULIN SLIDING SCALE (NOVOLOG) 1 VIAL SQ SCH ×3 (06:30→17:39)
[2022-04-15] MEDS: PRENATAL VITAMINS W/ FOLIC ACID TABLET (FP) PO SCH (10:57)
[2022-04-15] MEDS: LISINOPRIL 10 MG TABLET PO SCH (10:57)
[2022-04-15] MEDS: NICOTINE 14 MG/24 HOURS TOPICAL PATCH TD SCH (10:57)
[2022-04-15] MEDS: ASPIRIN 81 MG CHEWABLE TABLETS PO SCH (10:57)
[2022-04-15] MEDS: chlorproMAZINE HCL 25 MG TABLET PO SCH ×2 (10:57→22:09)
[2022-04-15] MEDS ORDERED: INSULIN (NOVOLOG) ASPART 100 UNITS/ML 10ML VIAL ONE ×2 (11:33→16:50)
[2022-04-15] MEDS: METHOCARBAMOL 500 MG TABLET PO PRN (14:43)
[2022-04-15 17:44] VITALS: RESP 18
[2022-04-15] MEDS: THIAMINE HCL 100 MG TABLET (FP) PO SCH (22:08)
[2022-04-15] MEDS: traZODone HCL 50 MG TABLET (FP) PO SCH (22:08)
[2022-04-15] MEDS: MIRTAZAPINE 15 MG TABLET (FP) PO SCH (22:09)
[2022-04-15] MEDS: INSULIN (LEVEMIR) 100 UNITS/ML UNITS SQ SCH (22:09)
[2022-04-16] MEDS ORDERED: chlordiazePOXIDE HCL 10 MG CAPSULE PO ONE (05:00)
[2022-04-16] MEDS: glipiZIDE 10 MG TABLET (FP) PO SCH (06:24)
[2022-04-16] MEDS: metFORMIN HCL 500 MG TABLET (FP) PO SCH (06:24)
[2022-04-16] MEDS: IBUPROFEN 600 MG TABLET (FP) PO PRN (06:27)
[2022-04-16] MEDS: INSULIN SLIDING SCALE (NOVOLOG) 1 VIAL SQ SCH ×2 (08:38→11:01)
[2022-04-16] MEDS ORDERED: INSULIN (NOVOLOG) ASPART 100 UNITS/ML 10ML VIAL ONE (08:40)
[2022-04-16 09:25] VITALS: BP 103/72; PULSE 99; TEMP 97.1
[2022-04-16] MEDS: PRENATAL VITAMINS W/ FOLIC ACID TABLET (FP) PO SCH (09:54)
[2022-04-16] MEDS: ASPIRIN 81 MG CHEWABLE TABLETS PO SCH (09:55)
[2022-04-16] MEDS: NICOTINE 14 MG/24 HOURS TOPICAL PATCH TD SCH (09:55)
[2022-04-16] MEDS: chlorproMAZINE HCL 25 MG TABLET PO SCH (09:55)
[2022-04-16] MEDS: LISINOPRIL 10 MG TABLET PO SCH (09:55)
== END 2022-04-16 10:49 | disposition home or self-care (01) | DRG 774 ==
LOC: YASAS 17:52 → Y6N 04-12 07:26
PROVIDERS: ADMIT Allergy & Immunology; ATTEND Allergy & Immunology
PROC: HZ2ZZZZ Detoxification Services for Substance Abuse Treatment (ICD-10-PCS; principal; 2022-04-12)
DX: F10.230 Alcohol dependence with withdrawal, uncomplicated (principal); F14.20 Cocaine dependence, uncomplicated; F17.210 Nicotine dependence, cigarettes, uncomplicated; F19.282 Other psychoactive substance dependence with psychoactive substance-induced sleep disorder; F19.24 Other psychoactive substance dependence with psychoactive substance-induced mood disorder; F31.78 Bipolar disorder, in full remission, most recent episode mixed; F41.9 Anxiety disorder, unspecified; I10 Essential (primary) hypertension; J44.9 Chronic obstructive pulmonary disease, unspecified; J45.20 Mild intermittent asthma, uncomplicated; E11.9 Type 2 diabetes mellitus without complications; Z79.4 Long term (current) use of insulin; B18.2 Chronic viral hepatitis C; Z56.0 Unemployment, unspecified; Z59.00 Homelessness unspecified
CPT/HCPCS: 36415; 80053; 82962; 83036; 85027; 86780; 93005; 93010; C9803-CS; U0003; U0005